=== PATIENT | male | born 1990 | race African-American/Black ===

== ENCOUNTER → 2017-02-16 | Outpatient (CLI) | payer OTHER ==
--- NOTE | 2017-02-16 14:47 | XR ---
Two-view spine HISTORY: Back pain Frontal and lateral views of the cervical, thoracic, lumbar spine submitted on a total of 9 images an d correlated to previous exam 03/13/2016 There is no interval change. Vertebral body height, bone mineralization, and alignment are stable. Mi nimal anterolisthesis grade 1 C4-5. Disc spaces are stable. Some loss of disc height L4-5. Thoracic s pondylosis is noted. Rudimentary ribs present at L1. IMPRESSION: Stable exam. Mild degenerative disc change.
== END ==
LOC: RADXRMAIN 13:50
PROVIDERS: ATTEND Internal Medicine
DX: M47.812 Spondylosis without myelopathy or radiculopathy, cervical region (principal); M47.814 Spondylosis without myelopathy or radiculopathy, thoracic region; M47.816 Spondylosis without myelopathy or radiculopathy, lumbar region
CPT/HCPCS: 72082

== ENCOUNTER → 2017-08-23 | Day surgery (SDC) | payer OTHER ==
[2017-08-19 13:51] VITALS: BMI 32.0
[~2017-08-23] MED LIST: LACTATED RINGERS 1,000 ML IV SCH; LIDOCAINE 1% 20 ML VIAL (10MG/ML) FOR IV START INTRADERMA ONE; LIDOCAINE 1% INJ 10MG/ML (20 ML MDV) ONE; PROPOFOL 10 MG/ML 20 ML VIAL IV ONE; fentaNYL (PF) 50 MCG/ML 2 ML AMP ONE
--- NOTE | 2017-08-23 07:36 | P.GSHP ---
History of Present Illness H&P Date: 08/23/17 CHIEF COMPLAINT: GERD HISTORY OF PRESENT ILLNESS: The patient is a 26-year-old male who presents reports gastroesophageal reflux disease. Upper endoscopy was offered for further evaluation and management. PAST MEDICAL HISTORY: Please see list. PAST SURGICAL HISTORY: Please see list. MEDICATIONS: Please see list. ALLERGIES: Please see list. SOCIAL HISTORY: No illicit drug use FAMILY HISTORY: No reports of Crohn disease or ulcerative colitis. REVIEW OF ORGAN SYSTEMS: CONSTITUTIONAL: No reports of fevers or chills. GI: Denies any blood in stools or constipation. PHYSICAL EXAM: VITAL SIGNS: Stable GENERAL: Well-developed and pleasant in no acute distress. HEENT: No scleral icterus. Extraocular movements grossly intact. Moist buccal mucosa. NECK: Supple without lymphadenopathy. CHEST: Unlabored respirations. Equal bilateral excursions. CARDIOVASCULAR: Regular rate and rhythm. Distal 2+ pulses. ABDOMEN: Soft, nondistended. MUSCULOSKELETAL: No clubbing, cyanosis, or edema. ASSESSMENT: 1. Gastroesophageal reflux disease PLAN: 1. Recommend proceeding with an upper endoscopy Past Medical History Past Medical History: Asthma, GERD/Reflux Additional Past Medical History / Comment(s): OCCASIONAL ABDOMINAL PAIN, HAVING FREQUENT HEADACHES AND INSOMNIA History of Any Multi-Drug Resistant Organisms: None Reported Past Surgical History: No Surgical Hx Reported Additional Past Surgical History / Comment(s): SURGERY FOR "TWISTED INTESTINE" Past Anesthesia/Blood Transfusion Reactions: No Reported Reaction Smoking Status: Never smoker - Past Family History Mother Family Medical History: No Reported History Medications and Allergies Home Medications Medication Instructions Recorded Confirmed Type Albuterol Sulfate [Proair Hfa] 2 puff INHALATION Q6H PRN 08/19/17 08/19/17 History Ibuprofen [Advil] 200 mg PO Q6HR PRN 08/19/17 08/19/17 History Allergies Allergy/AdvReac Type Severity Reaction Status Date / Time tramadol AdvReac Nausea Verified 08/19/17 13:48
[2017-08-23 09:55] VITALS: TEMP 98.2
--- NOTE | 2017-08-23 10:26 | P.PCN ---
Date of Procedure: 08/23/17 Description of Procedure: PREOPERATIVE DIAGNOSIS: Gastroesophageal reflux disease. Epigastric abdominal pain POSTOPERATIVE DIAGNOSIS: Gastroesophageal reflux disease. Epigastric abdominal pain Erosive esophagitis with ulcerations Gastritis. OPERATION: Esophagogastroduodenoscopy with biopsies along antrum and distal esophagus SURGEON: Shobha Lara MD ANESTHESIA: MAC. INDICATIONS: The patient is a 26-year-old male who presents with a history of reflux disease. Benefits and risks of the procedure were described. Informed consent was obtained. DESCRIPTION: The patient was brought into the endoscopy suite and laid in the left lateral decubitus position. An Olympus gastroscope was passed along the posterior oropharynx down to the distal esophagus where the squamocolumnar junction was encountered at 41 cm from the incisors. The stomach was entered and no bile reflux was found. Additional findings are listed below. Biopsies with cold forceps were obtained of the antrum. The first through third portion of the duodenum was examined and remarkable for early duodenitis. Retroflexion of the scope confirmed Hill grade 2 lower esophageal valve. The squamocolumnar junction acute LA grade C erosive esophagitis with ulceration and biopsies obtained. The stomach was desufflated. The patient tolerated the procedure well. FINDINGS: Squamocolumnar junction 41 cm from the incisors. Diaphragmatic hiatus at 41 cm. Hill grade 2 lower esophageal valve. LA grade C erosive esophagitis with esophageal ulcers Chronic gastritis Early duodenitis. RECOMMENDATIONS: Start medical therapy. Further recommendations pending results of pathology report. Upper endoscopy as needed. Will benefit from antireflux surgical procedure Plan - Discharge Summary New Discharge Prescriptions: No Action Ibuprofen [Advil] 200 mg PO Q6HR PRN PRN Reason: Pain Albuterol Sulfate [Proair Hfa] 2 puff INHALATION Q6H PRN PRN Reason: Shortness Of Breath Discharge Medication List Albuterol Sulfate [Proair Hfa] 2 puff INHALATION Q6H PRN 08/19/17 [History] Ibuprofen [Advil] 200 mg PO Q6HR PRN 08/19/17 [History]
[2017-08-23 10:27] VITALS: RESP 16
[2017-08-23 11:10] VITALS: BP 133/69; PULSE 72
== END | disposition home or self-care (01) ==
LOC: ORWHC2ENDO 09:18
PROVIDERS: ATTEND Surgery Plastic and Reconstructive Surgery
DX: K21.0 Gastro-esophageal reflux disease with esophagitis (principal); K22.10 Ulcer of esophagus without bleeding; K29.50 Unspecified chronic gastritis without bleeding; K29.80 Duodenitis without bleeding; J45.909 Unspecified asthma, uncomplicated; Z88.5 Allergy status to narcotic agent
CPT/HCPCS: 88305; 43239; J2001; J3010; J2704; 88312

== ENCOUNTER → 2017-08-26 | Outpatient (CLI) | payer OTHER ==
--- NOTE | 2017-08-26 12:20 | US ---
EXAMINATION TYPE: US gallbladder DATE OF EXAM: 08/26/2017 COMPARISON: 10/22/2013 CLINICAL HISTORY: K44.9 Hiatal Hernia, Gastroesophageal Reflux Disea. EXAM MEASUREMENTS: Liver Length: 17.3 cm Gallbladder Wall: 0.3 cm se CBD: 0.5 cm Right Kidney: 12.0 x 5.1 x 6.2 cm Pancreas: Obscured by bowel gas Liver: Increased attenuation; area of parenchymal change with vague irregular borders in left lobe Gallbladder: No stones seen Evidence for sonographic Ascencio's sign: no CBD: wnl Right Kidney: No hydronephrosis or masses seen Attenuating liver with area in left lobe with vague, irregular border, no gallstones IMPRESSION: 1. Liver somewhat increased in attenuation correlate for fatty infiltration, hepatitis or hepatocellu lar disease. Vague irregular area of echogenicity within the left lobe is noted and nonspecific. Pamela elation with CT scan is recommended to exclude mass.
--- NOTE | 2017-08-26 15:33 | NM ---
Nuclear medicine hepatobiliary scan. HISTORY: Pain. DOSAGE: The patient received 8 ounces of ensure plus and 5.2 mCi of Technetium 99m Choletec. FINDINGS: There is normal hepatic extraction. The gallbladder is seen by 15 minutes. There is bilia ry to bowel clearance by 15 minutes. Ejection fraction is 92%. IMPRESSION: 1. Ejection fraction of 92% can occasionally be associated with hyperdynamic gallbladder correlate cl inically.
== END ==
LOC: RADUSMAIN 11:38
PROVIDERS: ATTEND Surgery Plastic and Reconstructive Surgery
DX: R93.2 Abnormal findings on diagnostic imaging of liver and biliary tract (principal); K21.9 Gastro-esophageal reflux disease without esophagitis
CPT/HCPCS: 76705; 78226; A9537

== ENCOUNTER 2018-05-30 14:41 | Emergency (ER) | payer OTHER ==
[2018-05-30 15:03] VITALS: BP 126/77; PULSE 79; RESP 18; TEMP 98.5
[2018-05-30] MEDS ORDERED: KETOROLAC 60 MG/2 ML VIAL IM STA (15:53)
[2018-05-30] MEDS ORDERED: CYCLOBENZAPRINE 10 MG TAB PO STA (15:54)
--- NOTE | 2018-05-30 15:54 | ED ---
Back Pain HPI - General Chief Complaint: Back Pain/Injury Stated Complaint: back pain, herinated disc Time Seen by Provider: 05/30/18 15:10 Source: patient Limitations: no limitations - History of Present Illness Initial Comments: 27-year-old male wiht PMH of previous disc herniation in 2010 and chronic back pain from neck to lumbar presenting today for chief complaint of chronic back pain. Patient states he has had back pain for years, he states is been worsening for the past few months but denies any injury or trauma. Patient states he's been evaluated for this complaint with outpatient provider. He states he is prescribed Twain. Patient states he was sent here for imaging studies. He thought he needed to come to the emergency department. I did see prescription for cervical, thoracic and lumbar XR complete views as prescribed by Dr. Key. She states since he is here he will just be evaluated for this in the ER. Patient denies any changes, loss of bowel bladder control, IV drug use , fever, chills, night sweats, recent trauma, MVA, history of cancer, numbness or loss sensation lower extremity is. Patient denies any change in characteristic recently of the back pain. Remaining review of systems negative , patient denies any recent shortness of breath, chest pain, abdominal pain, nausea or vomiting, numbness or tingling, urgency, frequency dysuria or hematuria, constipation or diarrhea, headaches or visual changes, or any other complaints. Upon arrival patient is ambulatory without difficulty, vital signs within acceptable limits. Patient appears well - Related Data Home Medications Medication Instructions Recorded Confirmed Albuterol Sulfate [Proair Hfa] 2 puff INHALATION Q6H PRN 08/19/17 08/23/17 Previous Rx's Medication Instructions Recorded Omeprazole 40 mg PO DAILY #90 capsule. 08/23/17 Cyclobenzaprine [Flexeril] 10 mg PO TID PRN 7 Days #21 tab 05/30/18 Allergies Allergy/AdvReac Type Severity Reaction Status Date / Time tramadol AdvReac Nausea Verified 05/30/18 15:03 Review of Systems ROS Statement: Those systems with pertinent positive or pertinent negative responses have been documented in the HPI. ROS Other: All systems not noted in ROS Statement are negative. Past Medical History Past Medical History: Asthma, GERD/Reflux Additional Past Medical History / Comment(s): OCCASIONAL ABDOMINAL PAIN, HAVING FREQUENT HEADACHES AND INSOMNIA History of Any Multi-Drug Resistant Organisms: None Reported Past Surgical History: No Surgical Hx Reported Additional Past Surgical History / Comment(s): SURGERY FOR "TWISTED INTESTINE" Past Anesthesia/Blood Transfusion Reactions: No Reported Reaction Past Psychological History: No Psychological Hx Reported Smoking Status: Never smoker - Past Family History Mother Family Medical History: No Reported History General Exam - General Exam Comments Initial Comments: General: The patient is awake and alert, in no distress, and does not appear acutely ill. Eye: Pupils are equal, round and reactive to light, extra-ocular movements are intact. No nystagmus. There is normal conjunctiva bilaterally. No signs of icterus. Ears, nose, mouth and throat: There are moist mucous membranes and no oral lesions. Neck: The neck is supple, there is no tenderness or JVD. Cardiovascular: There is a regular rate and rhythm. No murmur, rub or gallop is appreciated. Respiratory: Lungs are clear to auscultation, respirations are non-labored, breath sounds are equal. No wheezes, stridor, rales, or rhonchi. Gastrointestinal: Soft, non-distended, non-tender abdomen without masses or organomegaly noted. There is no rebound or guarding present. Musculoskeletal: Upon inspection of the cervical thoracic lumbar spine there is no abnormality. There is no midline or paravertebral tenderness the entire length of the spell column. Patient has full range of motion of the upper and lower extremities there are no deficits and there are equal comparison bilaterally. Patient has full sensation of the upper and lower extremities. There is no saddle anesthesia. Patient's radial and dorsalis pedis pulses are within normal limits. Patient is able to heel and toe walk. +2 out of 5 deep tendon reflexes of the lower extremities. No evidence of clonus or fasciculations. Neurological: A&O x 3. CN II-XII intact, There are no obvious motor or sensory deficits. Coordination appears grossly intact. Speech is normal. Skin: Skin is warm and dry and no rashes or lesions are noted. Psychiatric: Cooperative, appropriate mood & affect, normal judgment. Limitations: no limitations Course Vital Signs 05/30/18 15:01 Temperature 98.5 F Pulse Rate 79 Respiratory 18 Rate Blood Pressure 126/77 O2 Sat by Pulse 99 Oximetry Medical Decision Making - Medical Decision Making Patient accidentally presented to the emergency department when he was coming to the hospital for outpatient imaging studies as prescribed by Dr. Key, pt wanted to be evaluated "since he is already here". No abnormalities upon radiographic imaging studies. There is no signs of radiculopathy or neurovascular deficits upon examination. No signs of cauda equina. Patient is a bit without difficulty. Appears well. No red flags of back pain. Patient denies any recent changes. Patient currently prescribed Twain at home. Patient was given Flexeril and toradol while in the ER. She is agreeable with discharge, denies questions at this time. I discussed the case with attending provider Dr. Oneill who is agreeable with plan and discharge. Disposition Clinical Impression: Chronic back pain Disposition: HOME SELF-CARE Condition: Good Instructions (If sedation given, give patient instructions): Chronic Back Pain (ED) Additional Instructions: Please use medication as discussed. Please follow-up with family doctor in the next 2 days, to discuss imaging studies he recommended/ordered. Please return to emergency room if the symptoms increase or worsen or for any other concerns. Prescriptions: Cyclobenzaprine [Flexeril] 10 mg PO TID PRN 7 Days #21 tab PRN Reason: Muscle Spasm Is patient prescribed a controlled substance at d/c from ED?: No Referrals: Mitchel Key MD [Primary Care Provider] - 1-2 days Time of Disposition: 16:21
--- NOTE | 2018-05-30 16:35 | XR ---
EXAMINATION TYPE: XR spine complete AP and Lat DATE OF EXAM: 05/30/2018 COMPARISON: 02/16/2017 HISTORY: Pain TECHNIQUE: Cervical spine is examined in multiple projections. Thoracic and lumbar spine are included within the [id number]. FINDINGS: Lumbar spine appears normal without acute fracture. There 5 lumbar-type bodies. Pedicles ap pear intact may be rudimentary ribs at L1. Thoracic spine appears normal. Straightening of the cervical spine lateral projection. IMPRESSION: 1. No suspicious acute changes cervical thoracic or lumbar spine
== END 2018-05-30 16:56 | disposition home or self-care (01) ==
LOC: EC 14:41
DX: M54.5 Low back pain (principal); M54.2 Cervicalgia; G89.29 Other chronic pain; J45.909 Unspecified asthma, uncomplicated; K21.9 Gastro-esophageal reflux disease without esophagitis; Z88.6 Allergy status to analgesic agent; Z98.890 Other specified postprocedural states
CPT/HCPCS: 72082; 99283; 96372; J1885

== ENCOUNTER 2018-10-07 08:58 | Day surgery (SDC) | payer OTHER ==
[2018-10-06 09:39] VITALS: BMI 31.7
--- NOTE | 2018-10-07 06:30 | P.GSHP ---
History of Present Illness H&P Date: 10/07/18 CHIEF COMPLAINT: GERD HISTORY OF PRESENT ILLNESS: The patient is a 27-year-old male who presents reports gastroesophageal reflux disease. Upper endoscopy was offered for further evaluation and management. PAST MEDICAL HISTORY: Please see list. PAST SURGICAL HISTORY: Please see list. MEDICATIONS: Please see list. ALLERGIES: Please see list. SOCIAL HISTORY: No illicit drug use FAMILY HISTORY: No reports of Crohn disease or ulcerative colitis. REVIEW OF ORGAN SYSTEMS: CONSTITUTIONAL: No reports of fevers or chills. GI: Denies any blood in stools or constipation. PHYSICAL EXAM: VITAL SIGNS: Stable GENERAL: Well-developed and pleasant in no acute distress. HEENT: No scleral icterus. Extraocular movements grossly intact. Moist buccal mucosa. NECK: Supple without lymphadenopathy. CHEST: Unlabored respirations. Equal bilateral excursions. CARDIOVASCULAR: Regular rate and rhythm. Distal 2+ pulses. ABDOMEN: Soft, nondistended. MUSCULOSKELETAL: No clubbing, cyanosis, or edema. ASSESSMENT: 1. Gastroesophageal reflux disease PLAN: 1. Recommend proceeding with an upper endoscopy Past Medical History Past Medical History: Asthma, GERD/Reflux Additional Past Medical History / Comment(s): OCCASIONAL ABDOMINAL PAIN, HAVING FREQUENT HEADACHES AND INSOMNIA History of Any Multi-Drug Resistant Organisms: None Reported Past Surgical History: No Surgical Hx Reported Additional Past Surgical History / Comment(s): SURGERY FOR "TWISTED INTESTINE" Past Anesthesia/Blood Transfusion Reactions: No Reported Reaction Smoking Status: Never smoker - Past Family History Mother Family Medical History: No Reported History Medications and Allergies Home Medications Medication Instructions Recorded Confirmed Type Albuterol Sulfate [Proair Hfa] 2 puff INHALATION Q6H PRN 08/19/17 10/06/18 History Allergies Allergy/AdvReac Type Severity Reaction Status Date / Time tramadol AdvReac Nausea Verified 10/06/18 09:23
[~2018-10-07 08:58] MED LIST changes: -LIDOCAINE 1% 20 ML VIAL (10MG/ML) FOR IV START INTRADERMA ONE; -LIDOCAINE 1% INJ 10MG/ML (20 ML MDV) ONE; -PROPOFOL 10 MG/ML 20 ML VIAL IV ONE; -fentaNYL (PF) 50 MCG/ML 2 ML AMP ONE
[2018-10-07 09:22] VITALS: TEMP 98.9
[2018-10-07] MEDS ORDERED: LIDOCAINE 1% 20 ML VIAL (10MG/ML) FOR IV START INTRADERMA ONE (09:29)
[2018-10-07] MEDS ORDERED: PROPOFOL 10 MG/ML 20 ML VIAL IV ONE (09:30)
[2018-10-07] MEDS ORDERED: LIDOCAINE 1% INJ 10MG/ML (20 ML MDV) ONE (09:30)
--- NOTE | 2018-10-07 10:11 | P.PCN ---
Date of Procedure: 10/07/18 Description of Procedure: PREOPERATIVE DIAGNOSIS: Gastroesophageal reflux disease. Epigastric abdominal pain Atypical chest pain POSTOPERATIVE DIAGNOSIS: Gastroesophageal reflux disease. Epigastric abdominal pain Atypical chest pain Gastritis, superficial with bleeding Erosive esophagitis Duodenitis OPERATION: Esophagogastroduodenoscopy with biopsies along antrum, duodenum and esophagus SURGEON: Shobha Lara MD ANESTHESIA: MAC. INDICATIONS: The patient is a 27-year-old male who presents with a history of reflux disease. Benefits and risks of the procedure were described. Informed consent was obtained. DESCRIPTION: The patient was brought into the endoscopy suite and laid in the left lateral decubitus position. An Olympus gastroscope was passed along the posterior oropharynx down to the distal esophagus where the squamocolumnar junction was encountered at 40 cm from the incisors. The stomach was entered and no bile reflux was found. Additional findings are listed below. Biopsies with cold forceps were obtained of the antrum. The first through third portion of the duodenum was examined with duodenitis. Retroflexion of the scope confirmed Hill grade 2 lower esophageal valve. The squamocolumnar junction demonstrated LA grade C erosive esophagitis. The stomach was desufflated. The patient tolerated the procedure well. FINDINGS: Squamocolumnar junction 40 cm from the incisors. Diaphragmatic hiatus at 42 cm. Hiatal hernia, 2 cm Hill grade 2 lower esophageal valve. LA grade C erosive esophagitis. Active duodenitis. Chronic gastritis with recent bleed RECOMMENDATIONS: Upper endoscopy as needed. Start omeprazole 40 mg daily Plan - Discharge Summary Discharge Rx Participant: No New Discharge Prescriptions: New Omeprazole 40 mg PO DAILY #30 capsule. No Action Albuterol Sulfate [Proair Hfa] 2 puff INHALATION Q6H PRN PRN Reason: Shortness Of Breath Discharge Medication List Albuterol Sulfate [Proair Hfa] 2 puff INHALATION Q6H PRN 08/19/17 [History] Omeprazole 40 mg PO DAILY #30 capsule. 10/07/18 [Rx] Follow up Appointment(s)/Referral(s): Shobha Lara MD [STAFF PHYSICIAN] - 10/25/18 Patient Instructions/Handouts: Duodenitis (DC), Esophagitis (DC), Diet for Stomach Ulcers and Gastritis (GEN), Gastritis (DC), Gastroesophageal Reflux Disease (DC) Activity/Diet/Wound Care/Special Instructions: Please start your new prescriptions Discharge Disposition: HOME SELF-CARE
[2018-10-07 10:31] VITALS: BP 127/90; PULSE 77; RESP 18
== END 2018-10-07 10:39 | disposition home or self-care (01) ==
LOC: ORWHC2ENDO 08:58
PROVIDERS: ATTEND Surgery Plastic and Reconstructive Surgery
DX: K29.31 Chronic superficial gastritis with bleeding (principal); K29.80 Duodenitis without bleeding; K21.0 Gastro-esophageal reflux disease with esophagitis; K22.10 Ulcer of esophagus without bleeding; K44.9 Diaphragmatic hernia without obstruction or gangrene; J45.909 Unspecified asthma, uncomplicated; Z88.5 Allergy status to narcotic agent
CPT/HCPCS: 88305; 43239; J2001; J2704

== ENCOUNTER → 2018-11-10 | Outpatient (CLI) | payer OTHER ==
[2018-11-10 16:49] LABS: HCT 44.7 % (39.0-53.0); HGB 14.4 gm/dL (13.0-17.5); MCH 28.2 pg (25.0-35.0); MCHC 32.1 g/dL (31.0-37.0); MCV 87.7 fL (80.0-100.0); Mean Platelet Volume 6.8; Platelet Count 217 k/uL (150-450); WBC 7.3 k/uL (3.8-10.6)
== END | disposition home or self-care (01) ==
LOC: LABPAT 16:11
PROVIDERS: ATTEND Surgery Plastic and Reconstructive Surgery
DX: Z01.812 Encounter for preprocedural laboratory examination (principal); K66.0 Peritoneal adhesions (postprocedural) (postinfection)
CPT/HCPCS: 85027

== ENCOUNTER 2018-11-11 08:21 | Day surgery (SDC) | payer OTHER ==
[2018-11-10 08:25] VITALS: BMI 31.0
--- NOTE | 2018-11-11 07:59 | P.GSHP ---
History of Present Illness H&P Date: 11/11/18 CHIEF COMPLAINT: History of intra-abdominal adhesions HISTORY OF PRESENT ILLNESS: The patient is a 28-year-old male who presents with history of intra-abdominal adhesions from multiple prior surgeries including increasing abdominal pain. He now presents for diagnostic laparoscopy including lysis of adhesions. PAST MEDICAL HISTORY: Please see list. PAST SURGICAL HISTORY: Please see list. MEDICATIONS: Please see list. ALLERGIES: Please see list. SOCIAL HISTORY: No illicit drug use FAMILY HISTORY: No reports of Crohn disease or ulcerative colitis. REVIEW OF ORGAN SYSTEMS: CONSTITUTIONAL: No reports of fevers or chills. GI: Denies any blood in stools or constipation. PHYSICAL EXAM: VITAL SIGNS: Stable GENERAL: Well-developed pleasant and in no acute distress. HEENT: No scleral icterus. Extraocular movements grossly intact. Moist buccal mucosa. NECK: Supple without lymphadenopathy. CHEST: Unlabored respirations. Equal bilateral excursions. CARDIOVASCULAR: Regular rate and rhythm. Distal 2+ pulses. ABDOMEN: Soft, diffuse abdominal tenderness. No peritonitis. MUSCULOSKELETAL: No clubbing, cyanosis, or edema. ASSESSMENT: 1. Diffuse abdominal pain. 2. History of multiple abdominal surgeries. 3. Intra-abdominal adhesions. PLAN: 1. Robotic lysis of adhesions were described in detail including risk of injury to the intestine, need for further surgery, and open technique. 2. DVT prophylaxis. 3. Antibiotic prophylaxis. Past Medical History Past Medical History: Asthma, GERD/Reflux Additional Past Medical History / Comment(s): OCCASIONAL ABDOMINAL PAIN, HAVING FREQUENT HEADACHES AND INSOMNIA History of Any Multi-Drug Resistant Organisms: None Reported Past Surgical History: No Surgical Hx Reported Additional Past Surgical History / Comment(s): SURGERY FOR "TWISTED INTESTINE", EGD Past Anesthesia/Blood Transfusion Reactions: No Reported Reaction Smoking Status: Never smoker - Past Family History Mother Family Medical History: No Reported History Medications and Allergies Home Medications Medication Instructions Recorded Confirmed Type Albuterol Sulfate [Proair Hfa] 2 puff INHALATION Q6H PRN 08/19/17 11/10/18 History Omeprazole 40 mg PO DAILY #30 capsule. 10/07/18 11/10/18 Rx Allergies Allergy/AdvReac Type Severity Reaction Status Date / Time tramadol AdvReac Nausea Verified 11/10/18 08:16
[~2018-11-11 08:21] MED LIST changes: +DEXAMETHASONE SOD PHOSPHATE 10 MG/ML 1 ML VIAL IV ONE; +HEPARIN SODIUM,PORCINE 5,000 UNIT/ML 1 ML VIAL SQ ONE; -LACTATED RINGERS 1,000 ML IV SCH; +MIDAZOLAM 2 MG/2 ML VIAL IV PRN; +ONDANSETRON 4 MG/2 ML VIAL IVP ONE
[2018-11-11] MEDS ORDERED: LIDOCAINE 1% 20 ML VIAL (10MG/ML) FOR IV START INTRADERMA ONE (08:50)
[2018-11-11] MEDS: LACTATED RINGERS 1,000 ML IV SCH ×3 (08:50→14:15)
[2018-11-11 09:14] LABS: ALT 29 U/L (21-72); AST 22 U/L (17-59); African American GFR (CKD) >90 (>60 ml/min/1.73 sqM); Albumin 4.6 g/dL (3.5-5.0); Alkaline Phosphatase 61 U/L (38-126); Anion Gap 11 mmol/L; Blood Urea Nitrogen 11 mg/dL (9-20); Calcium 9.8 mg/dL (8.4-10.2); Carbon Dioxide 23 mmol/L (22-30); Chloride 108 mmol/L (98-107); Glucose 98 mg/dL (74-99); Potassium 4.1 mmol/L (3.5-5.1); Sodium 142 mmol/L (137-145); Total Bilirubin 1.7 mg/dL (0.2-1.3); Total Protein 7.9 g/dL (6.3-8.2)
[2018-11-11] MEDS ORDERED: MIDAZOLAM (PF) 2 MG/2 ML VIAL IV ONE (09:14)
[2018-11-11] MEDS ORDERED: fentaNYL (PF) 50 MCG/ML 2 ML AMP IV ONE (09:14)
[2018-11-11] MEDS ORDERED: GLYCOPYRROLATE 0.2 MG/ML 2 ML VIAL ONE ×2 (09:26)
[2018-11-11] MEDS ORDERED: ROCURONIUM BROMIDE 10 MG/ML 10 ML VIAL IV ONE ×2 (09:26)
[2018-11-11] MEDS ORDERED: ROPIVACAINE 5 MG/ML 30 ML VIAL ONE ×2 (09:26)
[2018-11-11] MEDS ORDERED: PROPOFOL 10 MG/ML 20 ML VIAL IV ONE ×2 (09:26)
[2018-11-11] MEDS ORDERED: NEOSTIGMINE 1 MG/ML 10 ML VIAL ONE ×2 (09:26)
[2018-11-11] MEDS ORDERED: LIDOCAINE 1% INJ 10MG/ML (20 ML MDV) ONE ×2 (09:26)
[2018-11-11] MEDS ORDERED: DEXAMETHASONE SOD PHOSPHATE 4 MG/ML 1 ML VIAL ONE ×2 (09:26)
[2018-11-11] MEDS ORDERED: fentaNYL (PF) 50 MCG/ML 2 ML AMP ONE ×2 (09:26)
[2018-11-11] MEDS ORDERED: LACTATED RINGERS 1,000 ML IV ONE ×2 (09:47→10:21)
[2018-11-11] MEDS ORDERED: LIDOCAINE 1%-EPI 1:100,000 30 ML VIAL SQ ONE ×2 (09:48→10:00)
--- NOTE | 2018-11-11 10:53 | P.ANPRN ---
Procedure Note - Anesthesia - Nerve Block Performed Bilateral Transversus Abdominis Single Time Out Performed: Yes Date of Procedure: 11/11/18 Procedure Start Time: 09:15 Procedure Stop Time: :25 Location of Patient Procedure: PreOp Indication: Acute Post-Operative Pain, Requested by physician Sedation Type: Sedate with meaningful contact maintained Position: Supine Catheter: None Needle Types: Pajunk Needle Gauge: 21 Technique: Ultrasound Injectate: 0.5% Ropivacaine (see comment for volume) (ropivacaine 0.5% 15ml/side + 2mg dexamethasone/side. Total of 31 ml) Blood Aspirated: No Pain Paresthesia on Injection Noted: No Resistance on Injection: Normal Events: Uneventful and Well Tolerated
[2018-11-11 11:15] VITALS: TEMP 97.3
--- NOTE | 2018-11-11 11:24 | P.OP ---
Date of Procedure: 11/11/18 Description of Procedure: Date of Procedure: 11/11/18 SURGEON: SHOBHA LARA MD PREOPERATIVE DIAGNOSES: 1. History of recurrent small bowel obstruction 2. Abdominal distention 3. Generalized abdominal pain 4. History of small bowel volvulus 5. History of chronic back pain 6. Asthma 7. Gastroesophageal reflux disease POSTOPERATIVE DIAGNOSES: 1. History of recurrent small bowel obstruction 2. Abdominal distention 3. Generalized abdominal pain 4. History of small bowel volvulus 5. History of chronic back pain 6. Asthma 7. Gastroesophageal reflux disease 8. Angiodysplasia proximal ileum 9. Intussusception OPERATION: 1. Robotic-assisted da Terence Xi laparoscopic lysis of adhesions 2. Robotic diagnostic laparoscopy with ablation of angiodysplasia of proximal ileum serosa 3 cm mesenteric border Anesthesia: GETA, regional, local Estimated Blood Loss (ml): 5 Pathology: none sent Condition: stable Disposition: floor Operative Findings: 1. Intermittent small bowel dilation with angiodysplasia anomaly of the proximal ileum consistent with previous CT scans for bowel obstruction 2. No omental defects or internal hernia identified 3. No creeping fat of the terminal ileum or signs of Crohn's disease of the small intestine 4. Inflammation of the ileum mesentery consistent with recent bowel obstruction 5. 3 cm mesenteric angiodysplasia/telangiectasia ablated as lead point for intussusception/bowel obstruction INDICATIONS: The patient is a 28-year-old male who presents with recurrent small bowel obstruction and abdominal pain. Robotic assisted laparoscopic approach was described. Benefits and risks of the procedure including but not limited to bleeding, infection, injury to the small bowel was described. Informed consent was obtained. DESCRIPTION OF PROCEDURE: Patient was brought to the operating room, placed in supine position. After general induction, the abdomen had been prepped and draped in standard sterile fashion. The robotic da Terence XI system was primed. After a timeout protocol was performed, the patient had been prepped and draped in standard sterile fashion. The robot was docked along the right lateral abdomen. The patient was repositioned in Trendelenburg position of 10 degrees. A 5 mm 0 degrees laparoscopic trocar entry was performed along the left upper quadrant. The abdomen was insufflated to 15 mmHg pressure which she tolerated well. Diagnostic laparoscopy demonstrated no injury to the bowel, viscera or mesentery was identified. Next, three 8 mm robotic ports were placed along the left lateral abdominal wall. The 5 mm trocar was exchanged for 8 mm port. Please note that the ports were placed at least 8 cm away from the target anatomy. Instruments were interchanged using only 3 ports for a grasper, vessel sealer, and scissors with cautery. Instruments were interchanged by the stylist assistant including Bovie cautery scissors. I had sat at the console. The camera was positioned along the left lateral abdominal wall. The small bowel was investigated from the cecum to the ligament of Treitz. Intermittent small bowel dilation with angiodysplasia anomaly of the proximal ileum consistent with previous CT scans for bowel obstruction was found. No omental defects or internal hernia identified. No creeping fat of the terminal ileum or signs of Crohn's disease of the small intestine. Inflammation of the ileum mesentery consistent with recent bowel obstruction. A 3 cm mesenteric angiodysplasia/telangiectasia was identified and ablated as lead point for intussusception/bowel obstruction. Few adhesions were taken down without injury to the small bowel using vessel sealer. No involvement of small bowel was found. Hemostasis was excellent and abdomen was dry upon completion. The robot was undocked. All pneumoperitoneum and instruments were evacuated from the abdominal cavity. The incisions were reapproximated using 4-0 Monocryl in an interrupted subcuticular fashion. Please note along the trocar sites, local anesthetic was placed as a field block prior to insertion of all instruments. Liquid glue was applied to the skin. At the end of the procedure needle, sponge, and instrument count had been verified correct by the surgical manager. The patient was transferred to postanesthesia care unit in stable condition. Intraoperative images including findings were described to the patients family. Plan - Discharge Summary Discharge Rx Participant: Yes New Discharge Prescriptions: New Ibuprofen [Motrin] 600 mg PO Q8HR PRN #30 tab PRN Reason: Pain No Action Albuterol Sulfate [Proair Hfa] 2 puff INHALATION Q6H PRN PRN Reason: Shortness Of Breath Omeprazole 40 mg PO DAILY #30 capsule. Discharge Medication List Albuterol Sulfate [Proair Hfa] 2 puff INHALATION Q6H PRN 08/19/17 [History] Omeprazole 40 mg PO DAILY #30 capsule. 10/07/18 [Rx] Ibuprofen [Motrin] 600 mg PO Q8HR PRN #30 tab 11/11/18 [Rx] Follow up Appointment(s)/Referral(s): Shobha Lara MD [STAFF PHYSICIAN] - 11/15/18 Patient Instructions/Handouts: *Surgery [facility] - (Anesthesia) Discharge Instructions Outpatient Surgery, Exploratory Laparoscopy (DC), Angiodysplasia of the Gastrointestinal Tract (DC) Activity/Diet/Wound Care/Special Instructions: May shower. No bathtub soaks until 11/21/2018. No lifting over 10 pounds until 11/21/2018. Discharge Disposition: HOME SELF-CARE
[2018-11-11] MEDS: HYDROmorphone 0.5 MG/0.5 ML SYRINGE IVP PRN ×2 (11:34→11:46)
[2018-11-11] MEDS ORDERED: ONDANSETRON 4 MG/2 ML VIAL IVP ONE (12:38)
[2018-11-11 12:41] VITALS: RESP 16
[2018-11-11 13:13] VITALS: BP 130/87; PULSE 82
== END 2018-11-11 14:26 | disposition home or self-care (01) ==
LOC: OR 08:21
PROVIDERS: ATTEND Surgery Plastic and Reconstructive Surgery
DX: K55.20 Angiodysplasia of colon without hemorrhage (principal); J45.909 Unspecified asthma, uncomplicated; K21.9 Gastro-esophageal reflux disease without esophagitis; G89.29 Other chronic pain; Z79.899 Other long term (current) drug therapy; Z88.8 Allergy status to other drugs, medicaments and biological substances
CPT/HCPCS: 64488; 80053; 49329; J1644; J1100 ×2; J2710; J0690; J2405; J2001; J3010; J2795; J2704; J1170; J2250

== ENCOUNTER 2018-11-18 02:47 | Inpatient (IN) | payer OTHER ==
--- NOTE | 2018-11-18 03:02 | ED ---
General Adult HPI - General Source: patient, RN notes reviewed Mode of arrival: ambulatory Limitations: no limitations <Stanley Nogueira P - Last Filed: 11/18/18 04:09> <Janee Mattehws P - Last Filed: 11/18/18 05:46> - General Chief complaint: Abdominal Pain Stated complaint: Abd Pain Time Seen by Provider: 11/18/18 02:59 - History of Present Illness Initial comments: 28-year-old male with a past medical history of asthma, GERD, small bowel obstruction, multiple abdominal surgeries presents to the emergency department for a chief complaint of abdominal pain. States he has had pain for about 4 days but has been worsening significantly. Patient had laparoscopic exploratory surgery [address] Lara where a 3 cm mesenteric angiodysplasia was ablated as a lead point for intussusception/bowel obstruction. States he last passed stool about a day and a half ago. Patient states he has not been able to pass any gas since that time. States he is nauseous but denies vomiting. Denies any dysuria. Denies any fevers or chills.Patient has no other complaints at this time including shortness of breath, chest pain, vomiting, headache, or visual changes. (Stanley Nogueira) - Related Data Home Medications Medication Instructions Recorded Confirmed Albuterol Sulfate [Proair Hfa] 2 puff INHALATION Q6H PRN 08/19/17 11/11/18 Previous Rx's Medication Instructions Recorded Omeprazole 40 mg PO DAILY #30 capsule. 10/07/18 Ibuprofen [Motrin] 600 mg PO Q8HR PRN #30 tab 11/11/18 Allergies Allergy/AdvReac Type Severity Reaction Status Date / Time tramadol AdvReac Nausea Verified 11/18/18 02:56 Review of Systems ROS Other: All systems not noted in ROS Statement are negative. <Stanley Nogueira P - Last Filed: 11/18/18 04:09> ROS Other: All systems not noted in ROS Statement are negative. <Janee Matthews P - Last Filed: 11/18/18 05:46> ROS Statement: Those systems with pertinent positive or pertinent negative responses have been documented in the HPI. Past Medical History Past Medical History: Asthma, GERD/Reflux Additional Past Medical History / Comment(s): OCCASIONAL ABDOMINAL PAIN, HAVING FREQUENT HEADACHES AND INSOMNIA History of Any Multi-Drug Resistant Organisms: None Reported Past Surgical History: No Surgical Hx Reported Additional Past Surgical History / Comment(s): SURGERY FOR "TWISTED INTESTINE" Past Anesthesia/Blood Transfusion Reactions: No Reported Reaction Past Psychological History: No Psychological Hx Reported Smoking Status: Never smoker Past Alcohol Use History: Rare Past Drug Use History: None Reported - Past Family History Mother Family Medical History: No Reported History <Stanley Nogueira P - Last Filed: 11/18/18 04:09> General Exam Limitations: no limitations General appearance: alert, in no apparent distress Head exam: Present: atraumatic, normocephalic, normal inspection Eye exam: Present: normal appearance, PERRL, EOMI. Absent: scleral icterus, conjunctival injection, periorbital swelling ENT exam: Present: normal exam, mucous membranes moist Neck exam: Present: normal inspection, full ROM. Absent: tenderness, meningismus, lymphadenopathy Respiratory exam: Present: normal lung sounds bilaterally. Absent: respiratory distress, wheezes, rales, rhonchi, stridor Cardiovascular Exam: Present: regular rate, normal rhythm, normal heart sounds. Absent: systolic murmur, diastolic murmur, rubs, gallop, clicks GI/Abdominal exam: Present: soft, distended, tenderness (Generalized abdominal tenderness), normal bowel sounds. Absent: guarding, rebound, rigid Neurological exam: Present: alert, oriented X3 Psychiatric exam: Present: normal affect, normal mood <Stanley Nogueira P - Last Filed: 11/18/18 04:09> Course Vital Signs 11/18/18 02:54 Temperature 98 F Pulse Rate 103 H Respiratory 20 Rate Blood Pressure 143/84 O2 Sat by Pulse 100 Oximetry Medical Decision Making - Lab Data Result diagrams: 11/18/18 03:40 11/18/18 03:40 <Stanley Nogueira P - Last Filed: 11/18/18 04:09> - Lab Data Result diagrams: 11/18/18 03:40 11/18/18 03:40 <Janee Matthews P - Last Filed: 11/18/18 05:46> - Medical Decision Making Patient with recurrent small bowel obstructions presenting today 7 days postop from exploratory laparoscopy with again symptom the small bowel obstruction, x-ray did confirm a small bowel instruction however considering the patient is immediately postoperative decision was made to get a computed tomography scan. Computed tomography scan showed dilated edematous loops of small bowel with a possible transition point at the terminal ileum or ileocecal valve, no definitive transition point, no definitive loop. These results were discussed with the surgeon Dr. Lara who agrees with plan for admission for supportive care at this time. (Janee Matthews) - Lab Data Lab Results 11/18/18 11/18/18 11/18/18 Range/Units 03:40 03:40 03:40 WBC 11.0 H (3.8-10.6) k/uL RBC 5.55 (4.30-5.90) m/uL Hgb 16.2 (13.0-17.5) gm/dL Hct 48.0 (39.0-53.0) % MCV 86.6 (80.0-100.0) fL MCH 29.2 (25.0-35.0) pg MCHC 33.8 (31.0-37.0) g/dL RDW 15.8 H (11.5-15.5) % Plt Count 232 (150-450) k/uL Neutrophils % 71 % Lymphocytes % 21 % Monocytes % 6 % Eosinophils % 1 % Basophils % 0 % Neutrophils # 7.8 H (1.3-7.7) k/uL Lymphocytes # 2.3 (1.0-4.8) k/uL Monocytes # 0.6 (0-1.0) k/uL Eosinophils # 0.1 (0-0.7) k/uL Basophils # 0.0 (0-0.2) k/uL Sodium 140 (137-145) mmol/L Potassium 3.9 (3.5-5.1) mmol/L Chloride 102 (98-107) mmol/L Carbon Dioxide 23 (22-30) mmol/L Anion Gap 15 mmol/L BUN 16 (9-20) mg/dL Creatinine 1.15 (0.66-1.25) mg/dL Est GFR (CKD-EPI)AfAm >90 (>60 ml/min/1.73 sqM) Est GFR (CKD-EPI)NonAf 87 (>60 ml/min/1.73 sqM) Glucose 137 H (74-99) mg/dL Plasma Lactic Acid Curt 2.5 H* (0.7-2.0) mmol/L Calcium 10.4 H (8.4-10.2) mg/dL Total Bilirubin 2.5 H (0.2-1.3) mg/dL AST 18 (17-59) U/L ALT 19 L (21-72) U/L Alkaline Phosphatase 76 (38-126) U/L Total Protein 8.6 H (6.3-8.2) g/dL Albumin 4.9 (3.5-5.0) g/dL Amylase 53 (30-110) U/L Lipase 37 (23-300) U/L Urine Color Urine Appearance (Clear) Urine pH (5.0-8.0) Ur Specific [place] (1.001-1.035) Urine Protein (Negative) Urine Glucose (UA) (Negative) Urine Ketones (Negative) Urine Blood (Negative) Urine Nitrite (Negative) Urine Bilirubin (Negative) Urine Urobilinogen (<2.0) mg/dL Ur Leukocyte Esterase (Negative) Urine RBC (0-5) /hpf Urine WBC (0-5) /hpf Urine Mucus (None) /hpf 11/18/18 Range/Units 03:40 WBC (3.8-10.6) k/uL RBC (4.30-5.90) m/uL Hgb (13.0-17.5) gm/dL Hct (39.0-53.0) % MCV (80.0-100.0) fL MCH (25.0-35.0) pg MCHC (31.0-37.0) g/dL RDW (11.5-15.5) % Plt Count (150-450) k/uL Neutrophils % % Lymphocytes % % Monocytes % % Eosinophils % % Basophils % % Neutrophils # (1.3-7.7) k/uL Lymphocytes # (1.0-4.8) k/uL Monocytes # (0-1.0) k/uL Eosinophils # (0-0.7) k/uL Basophils # (0-0.2) k/uL Sodium (137-145) mmol/L Potassium (3.5-5.1) mmol/L Chloride (98-107) mmol/L Carbon Dioxide (22-30) mmol/L Anion Gap mmol/L BUN (9-20) mg/dL Creatinine (0.66-1.25) mg/dL Est GFR (CKD-EPI)AfAm (>60 ml/min/1.73 sqM) Est GFR (CKD-EPI)NonAf (>60 ml/min/1.73 sqM) Glucose (74-99) mg/dL Plasma Lactic Acid Curt (0.7-2.0) mmol/L Calcium (8.4-10.2) mg/dL Total Bilirubin (0.2-1.3) mg/dL AST (17-59) U/L ALT (21-72) U/L Alkaline Phosphatase (38-126) U/L Total Protein (6.3-8.2) g/dL Albumin (3.5-5.0) g/dL Amylase (30-110) U/L Lipase (23-300) U/L Urine Color Yellow Urine Appearance Clear (Clear) Urine pH 6.5 (5.0-8.0) Ur Specific [place] 1.035 (1.001-1.035) Urine Protein 1+ H (Negative) Urine Glucose (UA) Negative (Negative) Urine Ketones Negative (Negative) Urine Blood Negative (Negative) Urine Nitrite Negative (Negative) Urine Bilirubin Negative (Negative) Urine Urobilinogen <2.0 (<2.0) mg/dL Ur Leukocyte Esterase Trace H (Negative) Urine RBC 1 (0-5) /hpf Urine WBC 7 H (0-5) /hpf Urine Mucus Few H (None) /hpf Disposition <Stanley Nogueira P - Last Filed: 11/18/18 04:09> Is patient prescribed a controlled substance at d/c from ED?: No <Janee Matthews P - Last Filed: 11/18/18 05:46> Clinical Impression: SBO (small bowel obstruction) Disposition: ADMITTED IP TO THIS HOSP Condition: Stable Referrals: Mitchel Key MD [Primary Care Provider] - 1-2 days
[2018-11-18] MEDS ORDERED: SODIUM CHLORIDE 0.9% 1,000 ML IV STA (03:23)
[2018-11-18] MEDS ORDERED: ONDANSETRON 4 MG/2 ML VIAL IVP STA (03:23)
[2018-11-18] MEDS ORDERED: KETOROLAC 30 MG/ML 1 ML VIAL IVP STA (03:23)
[2018-11-18 03:59] LABS: Appearance,Urine Clear (Clear); Bilirubin,Urine Negative (Negative); Blood,Urine Negative (Negative); Color,Urine Yellow; Glucose,Urine (UA) Negative (Negative); Ketones,Urine Negative (Negative); Leukocyte Esterase,Urine Trace (Negative); Mucus,Urine Few /hpf; Nitrite,Urine Negative (Negative); PH, Urine 6.5 (5.0-8.0); Protein,Urine 1+ (Negative); RBC,Urine 1 /hpf (0-5); Specific Gravity,Urine 1.035 (1.001-1.035); Urobilinogen,Urine <2.0 mg/dL (<2.0); WBC,Urine 7 /hpf (0-5)
[2018-11-18 04:01] LABS: Basophils % (A) 0 %; Eosinophils # (A) 0.1 k/uL (0-0.7); Eosinophils % (A) 1 %; HGB 16.2 gm/dL (13.0-17.5); Lymphocytes # (A) 2.3 k/uL (1.0-4.8); Lymphocytes % (A) 21 %; MCH 29.2 pg (25.0-35.0); MCHC 33.8 g/dL (31.0-37.0); MCV 86.6 fL (80.0-100.0); Mean Platelet Volume 7.2; Monocytes # (A) 0.6 k/uL (0-1.0); Monocytes % (A) 6 %; Neutrophils # (A) 7.8 k/uL (1.3-7.7); Neutrophils % (A) 71 %; Platelet Count 232 k/uL (150-450); RBC 5.55 m/uL (4.30-5.90); RDW 15.8 % (11.5-15.5)
[2018-11-18 04:06] LABS: ALT 19 U/L (21-72); AST 18 U/L (17-59); African American GFR (CKD) >90 (>60 ml/min/1.73 sqM); Albumin 4.9 g/dL (3.5-5.0); Alkaline Phosphatase 76 U/L (38-126); Amylase 53 U/L (30-110); Anion Gap 15 mmol/L; Blood Urea Nitrogen 16 mg/dL (9-20); Calcium 10.4 mg/dL (8.4-10.2); Carbon Dioxide 23 mmol/L (22-30); Chloride 102 mmol/L (98-107); Glucose 137 mg/dL (74-99); Non-African American GFR(CKD) 87 (>60 ml/min/1.73 sqM); Potassium 3.9 mmol/L (3.5-5.1); Sodium 140 mmol/L (137-145); Total Bilirubin 2.5 mg/dL (0.2-1.3); Total Protein 8.6 g/dL (6.3-8.2)
--- NOTE | 2018-11-18 04:21 | XR ---
EXAM: XR Abdomen, 2 Views CLINICAL HISTORY: ITS.REASON XR Reason: abdominal pain TECHNIQUE: Frontal view of the abdomen/pelvis with upright view of the abdomen. 3 images. COMPARISON: 11/09/13. FINDINGS: Intraperitoneal space: No free air. Gastrointestinal tract: Multiple dilated small bowel loops with air- fluid levels in the mid abdomen. Normal caliber/collapsed colonic loops. Bones/joints: Unremarkable. IMPRESSION: Multiple dilated small bowel loops with air-fluid levels in the mid abdomen. Normal caliber/collapsed colonic loops. Likely represents small bowel obstruction.
--- NOTE | 2018-11-18 05:28 | CT ---
EXAM: CT Abdomen and Pelvis With Intravenous Contrast CLINICAL HISTORY: ITS.REASON CT Reason: Pain Pt having abdominal pain for 3 days, after laproscopic abdminal surgery 7 days ago. History of bowel obstructions. TECHNIQUE: Axial computed tomography images of the abdomen and pelvis with intravenous contrast. CTDI is 12.2 mGy and DLP is 1176.3 mGy-cm. This CT exam was performed using one or more of the following dose reduction techniques: automated exposure control, adjustment of the mA and/or kV according to patient size, and/or use of iterative reconstruction technique. COMPARISON: Prior x-ray abdomen today. FINDINGS: Lung bases: Unremarkable. No mass. No consolidation. ABDOMEN: Liver: Unremarkable. No mass. Gallbladder and bile ducts: Unremarkable. No calcified stones. No ductal dilation. Pancreas: Unremarkable. No mass. No ductal dilation. Spleen: Unremarkable. No splenomegaly. Adrenals: Unremarkable. No mass. Kidneys and ureters: Unremarkable. No solid mass. No hydronephrosis. Stomach and bowel: Multiple dilated small bowel loops with air-fluid levels throughout the abdomen and pelvis to the level of the terminal ileum/ileocecal valve. Wall thickening of many of these loops. A discrete transition point is not visualized. Normal caliber/collapsed colon. Mild mesenteric edema. Colonic diverticulosis of the ascending colon. PELVIS: Appendix: Normal appendix. Bladder: Unremarkable. No mass. Reproductive: Unremarkable as visualized. ABDOMEN and PELVIS: Intraperitoneal space: Small amount of free fluid in the pelvis No free air. Bones/joints: No acute fracture. No dislocation. Soft tissues: Small fat-containing umbilical hernia. Vasculature: Unremarkable. No abdominal aortic aneurysm. Lymph nodes: Multiple small and borderline enlarged mesenteric nodes. IMPRESSION: 1. Multiple dilated small bowel loops with air-fluid levels throughout the abdomen and pelvis to the level of the terminal ileum/ileocecal valve. Wall thickening of many of these loops. Findings may represent small bowel obstruction with possible transition at the terminal ileum/ileocecal valve region. Also consider infectious, inflammatory or ischemic enteritis. Could consider a contrast study with long delay to further assess. 2. Small amount of free fluid in the pelvis. 3. Colonic diverticulosis. <MYCVCSECTION> Critical Value Communications 11/18/18 05:15 Call Doctor Regarding Above results, called Dr. Ruiz 11/18 05:15 (-04:00)
[2018-11-18] MEDS ORDERED: NALOXONE 0.4 MG/ML 1 ML VIAL IV PRN (05:35)
[2018-11-18] MEDS ORDERED: MORPHINE SULFATE 4 MG/ML SYRINGE IV PRN (05:35)
[2018-11-18] MEDS ORDERED: ONDANSETRON 4 MG/2 ML VIAL IVP PRN (05:41)
[2018-11-18] MEDS: SODIUM CHLORIDE 0.9% 1,000 ML IV SCH ×3 (06:18→23:17)
[2018-11-18] MEDS ORDERED: SODIUM CHLORIDE 0.9% 2,000 ML IV ONE (06:48)
[2018-11-18] MEDS: MORPHINE SULFATE 4 MG/ML SYRINGE IV PRN ×2 (11:52→17:55)
[2018-11-18 13:18] VITALS: BMI 31.4
--- NOTE | 2018-11-18 17:18 | P.GSHP ---
History of Present Illness H&P Date: 11/18/18 CHIEF COMPLAINT: Abdominal pain HISTORY OF PRESENT ILLNESS: The patient is a 28-year-old male who comes with history of recurrent small bowel obstruction. His first episode was over 5 years ago where he required laparoscopy with reduction of small bowel volvulus. He recently was admitted to the hospital last 6 months with recurrent small bowel obstruction. 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 He was last seen in the office 3 days ago and was doing fair. He reports in the last 1-2 days unable to pass flatus and increasing lower abdominal pain including abdominal distention. CT of the abdomen and pelvis was suggestive of bowel obstruction hence his admission. No reports of emesis. His last bowel movement was 4 days ago and small. PAST MEDICAL HISTORY: See list. PAST SURGICAL HISTORY: See list. MEDICATIONS: See list. ALLERGIES: See list. SOCIAL HISTORY: No illicit drug use FAMILY HISTORY: Positive for Crohn's disease or inflammatory bowel disease in his cousin REVIEW OF ORGAN SYSTEMS: CONSTITUTIONAL: No fevers or chills. EYES: Denies any trouble with vision. Wears glasses. HEENT: No difficulties with hearing. No nosebleeds. No difficulty swallowing. RESPIRATORY: Denies pneumonia. Denies any troubles with breathing or dyspnea on exertion. CARDIOVASCULAR: Denies any chest pain, palpitations, or recent heart attacks. GASTROINTESTINAL: Has change in bowel habits and gas bloat. Past bowel obstructions. History of gastroesophageal reflux disease. GENITOURINARY: Denies any blood in urine or increased urinary frequency. NEUROLOGICAL: Denies any numbness or tingling along the distal extremities. No seizure disorders or headaches. MUSCULOSKELETAL: Has back pain, stiffness or joint arthritis. SKIN: No current skin cancer. No rash. PSYCHIATRIC: Denies current depression or suicidal thoughts. ENDOCRINE: Denies current thyroid disorders. Denies any blood sugar glucose intolerance. HEME/LYMPHATIC: Denies any lumps and bumps around the neck. No recent deep venou s thrombosis. ALLERGY/IMMUNOLOGY: No immunoglobulin therapy. No immune deficiencies. BREAST: Denies current breast lumps, pain or nipple discharge. PHYSICAL EXAM: VITALS: Reviewed CONSTITUTIONAL: Well developed and in no acute distress. EYES: Conjuctivae without sclera icterus. Pupils are equally round and reactive to light. Extraocular movements grossly intact. HEAD, EARS, NOSE, THROAT: Moist buccal mucosa. Head is atraumatic, normocephalic. Hears conversational speech. No nasal drainage. NECK: Supple. No JV distention. No thyroidomegaly. RESPIRATORY: Non-labored respirations and equal bilateral excursions. No gross wheezes. CARDIOVASCULAR: Regular rate and rhythm. Extremities without moderate edema. Palpable 2+ radial pulses. ABDOMEN: No hepatomegaly. Soft. Mildly distended. No peritoneal signs. Tender lower abdomen. LYMPH: No neck lymphadenopathy. No axillary lymphadenopathy. MUSCULOSKELETAL: Nail and fingers with good capillary refill. SKIN: Warm and well perfused with good skin turgor. NEUROLOGIC: Cranial nerves I through XII grossly intact. Sensation upper and extremities intact. No focal or lateralizing signs. PSYCH: Appropriate affect. Alert and oriented to person, place and time. Displays appropriate insight. CLINCAL LABS: Reviewed. Lactic acid elevated over 2.0 IMAGING: Independently reviewed with gas through the colon however dilated small bowel over 3 cm proximally to the ileocecal valve. No inflammatory changes along the right lower quadrant and identified the recent surgery. RADIOLOGY: Report reviewed suggestive of obstruction at ileocecal valve. ASSESSMENT: 1. Small bowel obstruction 2. Family history of Crohn's disease 3. Lactic acidosis 4. Gastroesophageal reflux disease PLAN: 1. Recommendations of radiologist, we'll proceed with small bowel follow- through to elucidate pathology at ileocecal valve or complete small bowel obstruction. 2. Recommend chemistries for evaluation for Crohn's disease including CRP and ESR level. Pending results, consultation with gastroenterology. 3. Liquid diet and interim 4. IV fluid hydration with 2 L normal saline performed to address elevated lactic acid level 5. Surgical intervention may be necessary pending results of small bowel follow-through or complete small bowel obstruction Past Medical History Past Medical History: Asthma, GERD/Reflux Additional Past Medical History / Comment(s): OCCASIONAL ABDOMINAL PAIN, HAVING FREQUENT HEADACHES AND INSOMNIA, SBO History of Any Multi-Drug Resistant Organisms: None Reported Past Surgical History: No Surgical Hx Reported Additional Past Surgical History / Comment(s): SURGERY FOR "TWISTED INTESTINE", exploratory lap Past Anesthesia/Blood Transfusion Reactions: No Reported Reaction Past Psychological History: No Psychological Hx Reported Smoking Status: Never smoker Past Alcohol Use History: Rare Additional Past Alcohol Use History / Comment(s): social drinker Past Drug Use History: None Reported - Past Family History Mother Family Medical History: No Reported History Medications and Allergies Home Medications Medication Instructions Recorded Confirmed Type Ibuprofen [Motrin] 600 mg PO Q8HR PRN #30 tab 11/11/18 11/18/18 Rx Allergies Allergy/AdvReac Type Severity Reaction Status Date / Time tramadol AdvReac Nausea Verified 11/18/18 07:15 Surgical - Exam Vital Signs Temp Pulse Resp BP Pulse Ox 98 F 103 H 20 143/84 100 11/18/18 02:54 11/18/18 02:54 11/18/18 02:54 11/18/18 02:54 11/18/18 02:54 Results - Labs 11/18/18 03:40 11/18/18 03:40 Abnormal Lab Results - Last 24 Hours (Table) 11/18/18 11/18/18 11/18/18 Range/Units 03:40 03:40 03:40 WBC 11.0 H (3.8-10.6) k/uL RDW 15.8 H (11.5-15.5) % Neutrophils # 7.8 H (1.3-7.7) k/uL Glucose 137 H (74-99) mg/dL Plasma Lactic Acid Curt 2.5 H* (0.7-2.0) mmol/L Calcium 10.4 H (8.4-10.2) mg/dL Total Bilirubin 2.5 H (0.2-1.3) mg/dL ALT 19 L (21-72) U/L Total Protein 8.6 H (6.3-8.2) g/dL Urine Protein (Negative) Ur Leukocyte Esterase (Negative) Urine WBC (0-5) /hpf Urine Mucus (None) /hpf 11/18/18 Range/Units 03:40 WBC (3.8-10.6) k/uL RDW (11.5-15.5) % Neutrophils # (1.3-7.7) k/uL Glucose (74-99) mg/dL Plasma Lactic Acid Curt (0.7-2.0) mmol/L Calcium (8.4-10.2) mg/dL Total Bilirubin (0.2-1.3) mg/dL ALT (21-72) U/L Total Protein (6.3-8.2) g/dL Urine Protein 1+ H (Negative) Ur Leukocyte Esterase Trace H (Negative) Urine WBC 7 H (0-5) /hpf Urine Mucus Few H (None) /hpf Diabetes panel 11/18/18 Range/Units 03:40 Sodium 140 (137-145) mmol/L Potassium 3.9 (3.5-5.1) mmol/L Chloride 102 (98-107) mmol/L Carbon Dioxide 23 (22-30) mmol/L BUN 16 (9-20) mg/dL Creatinine 1.15 (0.66-1.25) mg/dL Glucose 137 H (74-99) mg/dL Calcium 10.4 H (8.4-10.2) mg/dL AST 18 (17-59) U/L ALT 19 L (21-72) U/L Alkaline Phosphatase 76 (38-126) U/L Total Protein 8.6 H (6.3-8.2) g/dL Albumin 4.9 (3.5-5.0) g/dL Calcium panel 11/18/18 Range/Units 03:40 Calcium 10.4 H (8.4-10.2) mg/dL Albumin 4.9 (3.5-5.0) g/dL Pituitary panel 11/18/18 Range/Units 03:40 Sodium 140 (137-145) mmol/L Potassium 3.9 (3.5-5.1) mmol/L Chloride 102 (98-107) mmol/L Carbon Dioxide 23 (22-30) mmol/L BUN 16 (9-20) mg/dL Creatinine 1.15 (0.66-1.25) mg/dL Glucose 137 H (74-99) mg/dL Calcium 10.4 H (8.4-10.2) mg/dL Adrenal panel 11/18/18 Range/Units 03:40 Sodium 140 (137-145) mmol/L Potassium 3.9 (3.5-5.1) mmol/L Chloride 102 (98-107) mmol/L Carbon Dioxide 23 (22-30) mmol/L BUN 16 (9-20) mg/dL Creatinine 1.15 (0.66-1.25) mg/dL Glucose 137 H (74-99) mg/dL Calcium 10.4 H (8.4-10.2) mg/dL Total Bilirubin 2.5 H (0.2-1.3) mg/dL AST 18 (17-59) U/L ALT 19 L (21-72) U/L Alkaline Phosphatase 76 (38-126) U/L Total Protein 8.6 H (6.3-8.2) g/dL Albumin 4.9 (3.5-5.0) g/dL
[2018-11-18] MEDS ORDERED: KETOROLAC 30 MG/ML 1 ML VIAL IVP PRN (20:24)
[2018-11-18] MEDS: HEPARIN SODIUM,PORCINE 5,000 UNIT/ML 1 ML VIAL SQ SCH (20:37)
[2018-11-18] MEDS: METOCLOPRAMIDE 5 MG/ML 2 ML VIAL IVP SCH (20:37)
[2018-11-18] MEDS: DEXAMETHASONE SOD PHOSPHATE 4 MG/ML 1 ML VIAL IV SCH (20:37)
[2018-11-19] MEDS: ONDANSETRON 4 MG/2 ML VIAL IVP SCH ×5 (00:24→23:50)
[2018-11-19] MEDS: DEXAMETHASONE SOD PHOSPHATE 4 MG/ML 1 ML VIAL IV SCH ×5 (00:24→23:50)
[2018-11-19] MEDS: METOCLOPRAMIDE 5 MG/ML 2 ML VIAL IVP SCH ×4 (02:33→20:45)
[2018-11-19 07:38] LABS: Basophils % (A) 0 %; Eosinophils % (A) 0 %; HCT 43.4 % (39.0-53.0); HGB 14.6 gm/dL (13.0-17.5); Lymphocytes # (A) 1.1 k/uL (1.0-4.8); Lymphocytes % (A) 16 %; MCHC 33.6 g/dL (31.0-37.0); MCV 89.1 fL (80.0-100.0); Mean Platelet Volume 6.7; Monocytes # (A) 0.3 k/uL (0-1.0); Monocytes % (A) 5 %; Neutrophils # (A) 5.4 k/uL (1.3-7.7); Neutrophils % (A) 78 %; Platelet Count 237 k/uL (150-450); RBC 4.87 m/uL (4.30-5.90); WBC 6.9 k/uL (3.8-10.6)
--- NOTE | 2018-11-19 07:40 | FL ---
EXAMINATION TYPE: FL small bowel follow through DATE OF EXAM: 11/19/2018 CLINICAL HISTORY: Bowel obstruction TECHNIQUE: A single contrast small bowel follow through is performed utilizing barium. COMPARISON: 11/18/2018 FINDINGS: Single AP view of the abdomen is submitted. Small bowel follow-through initiated day r. Single frontal view demonstrates contrast within the colon. There appears to be marked dilation of numerous small bowel loops. No definite transition point. IMPRESSION: 1. Marked dilation of small bowel loops in a pattern suspicious for distal small bowel obstruction. T here is contrast within the colon suggesting findings are compatible with partial obstruction.
[2018-11-19] MEDS: SODIUM CHLORIDE 0.9% 1,000 ML IV SCH ×6 (07:44→23:51)
[2018-11-19 07:57] LABS: ALT 19 U/L (21-72); AST 16 U/L (17-59); African American GFR (CKD) >90 (>60 ml/min/1.73 sqM); Albumin 4.2 g/dL (3.5-5.0); Alkaline Phosphatase 59 U/L (38-126); Anion Gap 11 mmol/L; Blood Urea Nitrogen 10 mg/dL (9-20); Calcium 9.4 mg/dL (8.4-10.2); Carbon Dioxide 22 mmol/L (22-30); Chloride 107 mmol/L (98-107); Glucose 118 mg/dL (74-99); Non-African American GFR(CKD) >90 (>60 ml/min/1.73 sqM); Potassium 4.4 mmol/L (3.5-5.1); Sodium 140 mmol/L (137-145); Total Bilirubin 2.3 mg/dL (0.2-1.3); Total Protein 7.3 g/dL (6.3-8.2)
[2018-11-19 08:09] LABS: C Reactive Protein 13.4 mg/L (<10.0)
[2018-11-19] MEDS: HEPARIN SODIUM,PORCINE 5,000 UNIT/ML 1 ML VIAL SQ SCH ×2 (09:00→20:48)
[2018-11-19 09:10] LABS: Erythrocyte Sedimentation Rate 8 mm/hr (0-15)
--- NOTE | 2018-11-19 14:07 | P.PN ---
Subjective Progress Note Date: 11/19/18 CHIEF COMPLAINT: Small bowel obstruction HISTORY OF PRESENT ILLNESS: The patient is a 28-year-old male with history of recurrent small bowel obstruction. He reports some improvement of his abdominal pain. He has not eaten or drank anything in over 24 hrs. He is passing more flatus today than yesterday. His mother is at bedside and provides additional history that he had diarrhea prior to admission. He has been on low dose Decadron to address nausea and inflammation. ROS: No bowel movements during hospitalization. No fevers or chills. No new chest pain. No productive sputum PHYSICAL EXAM: VITAL SIGNS: Reviewed CONSTITUTIONAL: Well developed and in no acute distress. EYES: Conjuctivae without sclera icterus. Extraocular movements grossly intact. HEAD, EARS, NOSE, THROAT: Moist buccal mucosa. Head is atraumatic, normocephalic. Hears conversational speech. No nasal drainage. NECK: Supple. No thyroidomegaly. RESPIRATORY: Non-labored respirations and equal bilateral excursions. CARDIOVASCULAR: Palpable 2+ radial pulses. Regular rate. Regular rhythm. ABDOMEN: Soft. No peritonitis. Minimal distention MUSCULOSKELETAL: No gross deformity of the lower extremities noted. No cl ubbing. No cyanosis. SKIN: Good skin turgor. Well perfused. NEUROLOGIC: Cranial nerves I through XII grossly intact. No focal or lateralizing signs. PSYCH: Appropriate affect. Alert and oriented to person, place and time. CLINCAL LABS: White blood cell count normal. Leukocytosis is resolved. CRP and ESR not significantly elevated to suggest Crohns disease STUDIES: His small bowel follow through personally reviewed showing contrast into the colon. CT of the abdomen/pelvis images reviewed with patient and family showing small bowel dilation to the ileocecal valve. ASSESSMENT: 1. Small bowel obstruction PLAN: 1. Will continue conservative management. 2. 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 3. Start clear liquid diet. Objective - Vital Signs Vital signs: Vital Signs Temp 98.4 F 11/19/18 05:00 Pulse 83 11/19/18 05:00 Resp 18 11/19/18 05:00 BP 106/62 11/19/18 05:00 Pulse Ox 96 11/19/18 05:00 Intake & Output 11/18/18 11/19/18 11/19/18 18:59 06:59 18:59 Intake Total 437.5 Balance 437.5 Intake: Intake, IV Titration 437.5 Amount Sodium Chloride 0.9% 1, 437.5 000 ml @ 125 mls/hr IV . Q8H [facility] Rx#:[id number] Other: Voiding Method Toilet Toilet Toilet # Voids 1 - Labs CBC & Chem 7: 11/19/18 07:14 11/19/18 07:14 Labs: Abnormal Lab Results - Last 24 Hours (Table) 11/19/18 Range/Units 07:14 Glucose 118 H (74-99) mg/dL Total Bilirubin 2.3 H (0.2-1.3) mg/dL AST 16 L (17-59) U/L ALT 19 L (21-72) U/L C-Reactive Protein 13.4 H (<10.0) mg/L Assessment and Plan (1) Abdominal distension Current Visit: Yes Status: Acute Code(s): R14.0 - ABDOMINAL DISTENSION (GASEOUS) SNOMED Code(s): 27353127 (2) Asthma Current Visit: Yes Status: Acute Code(s): J45.909 - UNSPECIFIED ASTHMA, UNCOMPLICATED SNOMED Code(s): 411712079 (3) SBO (small bowel obstruction) Current Visit: Yes Status: Acute Code(s): K56.609 - UNSP INTESTNL OBST, UNSP TO PARTIAL VERSUS COMPLETE OBST SNOMED Code(s): 022340162
[2018-11-20] MEDS: METOCLOPRAMIDE 5 MG/ML 2 ML VIAL IVP SCH ×2 (02:36→08:42)
[2018-11-20] MEDS: DEXAMETHASONE SOD PHOSPHATE 4 MG/ML 1 ML VIAL IV SCH ×2 (05:56→12:56)
[2018-11-20] MEDS: ONDANSETRON 4 MG/2 ML VIAL IVP SCH ×2 (05:57→12:55)
[2018-11-20 06:11] VITALS: BP 146/74; PULSE 89; RESP 16; TEMP 96.7
[2018-11-20 08:26] LABS: Basophils % (A) 0 %; Eosinophils # (A) 0.1 k/uL (0-0.7); Eosinophils % (A) 1 %; HCT 41.2 % (39.0-53.0); HGB 13.1 gm/dL (13.0-17.5); Lymphocytes % (A) 11 %; MCH 28.2 pg (25.0-35.0); MCHC 31.9 g/dL (31.0-37.0); MCV 88.5 fL (80.0-100.0); Mean Platelet Volume 6.5; Monocytes # (A) 0.4 k/uL (0-1.0); Monocytes % (A) 5 %; Neutrophils # (A) 7.4 k/uL (1.3-7.7); Neutrophils % (A) 83 %; Platelet Count 250 k/uL (150-450); RBC 4.65 m/uL (4.30-5.90)
[2018-11-20 08:37] LABS: ALT 21 U/L (21-72); AST 20 U/L (17-59); African American GFR (CKD) >90 (>60 ml/min/1.73 sqM); Albumin 3.9 g/dL (3.5-5.0); Alkaline Phosphatase 44 U/L (38-126); Anion Gap 9 mmol/L; Blood Urea Nitrogen 12 mg/dL (9-20); Calcium 9.1 mg/dL (8.4-10.2); Carbon Dioxide 21 mmol/L (22-30); Chloride 109 mmol/L (98-107); Glucose 142 mg/dL (74-99); Non-African American GFR(CKD) >90 (>60 ml/min/1.73 sqM); Potassium 4.4 mmol/L (3.5-5.1); Sodium 139 mmol/L (137-145); Total Bilirubin 2.1 mg/dL (0.2-1.3)
[2018-11-20] MEDS: SODIUM CHLORIDE 0.9% 1,000 ML IV SCH (08:42)
[2018-11-20] MEDS: HEPARIN SODIUM,PORCINE 5,000 UNIT/ML 1 ML VIAL SQ SCH (09:03)
--- NOTE | 2018-11-20 09:30 | P.PN ---
Subjective Progress Note Date: 11/20/18 CHIEF COMPLAINT: Small bowel obstruction HISTORY OF PRESENT ILLNESS: The patient is a 28-year-old male with history of recurrent small bowel obstruction. He had a bowel movement yesterday. He is passing moderate flatus. He reports that his abdominal pain has almost completely resolved. No further gas bloat. ROS: No fevers or chills. No new chest pain. No productive sputum. Had bowel movement PHYSICAL EXAM: VITAL SIGNS: Reviewed CONSTITUTIONAL: Well developed and in no acute distress. EYES: Conjuctivae without sclera icterus. Extraocular movements grossly intact. HEAD, EARS, NOSE, THROAT: Moist buccal mucosa. Head is atraumatic, normocephalic. Hears conversational speech. No nasal drainage. NECK: Supple. No thyroidomegaly. RESPIRATORY: Non-labored respirations and equal bilateral excursions. CARDIOVASCULAR: Palpable 2+ radial pulses. Regular rate. Regular rhythm. ABDOMEN: Soft. No peritonitis. Resolved distention. MUSCULOSKELETAL: No gross deformity of the lower extremities noted. No clubbing. No cyanosis. SKIN: Good skin turgor. Well perfused. NEUROLOGIC: Cranial nerves I through XII grossly intact. No focal or lateralizing signs. PSYCH: Appropriate affect. Alert and oriented to person, place and time. CLINCAL LABS: White blood cell count normal. ASSESSMENT: 1. Small bowel obstruction, resolving PLAN: 1. Advance to regular diet. 2. May discharge once tolerating diet. 3. New medication of reglan for discharge. Objective - Vital Signs Vital signs: Vital Signs Temp 96.7 F L 11/20/18 05:00 Pulse 89 11/20/18 05:00 Resp 16 11/20/18 05:00 BP 146/74 11/20/18 05:00 Pulse Ox 99 11/20/18 05:00 Intake & Output 11/19/18 11/20/18 11/20/18 18:59 06:59 18:59 Intake Total 1000 1000 Balance 1000 1000 Intake: Intake, IV Titration 1000 1000 Amount Sodium Chloride 0.9% 1, 1000 1000 000 ml @ 125 mls/hr IV . Q8H [facility] Rx#:[id number] Other: Voiding Method Toilet Toilet Toilet # Voids 2 # Bowel Movements 1 - Labs CBC & Chem 7: 11/20/18 08:13 11/20/18 08:13 Labs: Abnormal Lab Results - Last 24 Hours (Table) 11/20/18 Range/Units 08:13 Chloride 109 H (98-107) mmol/L Carbon Dioxide 21 L (22-30) mmol/L Glucose 142 H (74-99) mg/dL Total Bilirubin 2.1 H (0.2-1.3) mg/dL Assessment and Plan (1) Abdominal distension Current Visit: Yes Status: Acute Code(s): R14.0 - ABDOMINAL DISTENSION ( GASEOUS) SNOMED Code(s): 19639157 (2) Asthma Current Visit: Yes Status: Acute Code(s): J45.909 - UNSPECIFIED ASTHMA, UNCOMPLICATED SNOMED Code(s): 692336959 (3) SBO (small bowel obstruction) Current Visit: Yes Status: Acute Code(s): K56.609 - UNSP INTESTNL OBST, UNSP TO PARTIAL VERSUS COMPLETE OBST SNOMED Code(s): 991562404
--- NOTE | 2018-11-20 14:30 | P.DS ---
Providers Date of admission: 11/18/18 05:45 Expected date of discharge: 11/20/18 Attending physician: Shobha Lara Primary care physician: Shahid Grullon - Discharge Diagnosis(es) (1) Abdominal distension Current Visit: Yes Status: Acute (2) Asthma Current Visit: Yes Status: Acute (3) SBO (small bowel obstruction) Current Visit: Yes Status: Acute (4) Gastroesophageal reflux disease Current Visit: Yes Status: Acute Hospital Course: CHIEF COMPLAINT: Small bowel obstruction COURSE: The patient is a 28-year-old male with history of recurrent small bowel obstruction. Studies including CT abdomen pelvis and small bowel follow-through confirmed small bowel obstruction particularly distal. He was placed on the concoction of Reglan including Decadron as well as Zofran. After IV fluid hydration, abdominal distention had resolved. He was passing increased flatus. He tolerated regular diet. Patient was stable for discharge. Pertinent Studies: CT of the abdomen and pelvis demonstrated obstruction of all omental cecal valve Small bowel follow-through confirmed partial small bowel obstruction Patient Condition at Discharge: Stable Plan - Discharge Summary Discharge Rx Participant: Yes New Discharge Prescriptions: New Metoclopramide [Reglan] 10 mg PO ACHS #30 tab No Action Ibuprofen [Motrin] 600 mg PO Q8HR PRN #30 tab PRN Reason: Pain Discharge Medication List Ibuprofen [Motrin] 600 mg PO Q8HR PRN #30 tab 11/11/18 [Rx] Metoclopramide [Reglan] 10 mg PO ACHS #30 tab 11/20/18 [Rx] Follow up Appointment(s)/Referral(s): Mitchel Key MD [Primary Care Provider] - 1-2 days Shobha Lara MD [STAFF PHYSICIAN] - 11/22/18 Patient Instructions/Handouts: Bowel Obstruction (DC) Activity/Diet/Wound Care/Special Instructions: May shower. Notify office for increased abdominal pain or symptoms. Discharge Disposition: HOME SELF-CARE
== END 2018-11-20 14:45 | disposition home or self-care (01) | DRG 389 ==
LOC: EC 02:47 → 3NMEDONC 05:45
PROVIDERS: ADMIT Surgery Plastic and Reconstructive Surgery; ATTEND Surgery Plastic and Reconstructive Surgery
DX: K56.600 Partial intestinal obstruction, unspecified as to cause (principal); E87.2 Acidosis; Z83.79 Family history of other diseases of the digestive system; Z79.1 Long term (current) use of non-steroidal anti-inflammatories (NSAID); Z88.8 Allergy status to other drugs, medicaments and biological substances
CPT/HCPCS: 36415; 74019; 74177; 74250; 80053; 81001; 82150; 83605; 83630; 83690; 83993; 85025; 85652; 86140; 87045; 87046; 96361; 96374; 96375; 99285

== ENCOUNTER 2018-11-23 15:44 | Inpatient (IN) | payer OTHER ==
[2018-11-23] MEDS ORDERED: IOPAMIDOL-300 CONTRAST 30 ML VIAL (ORAL USE) PO PRN (16:37)
[2018-11-23] MEDS ORDERED: KETOROLAC 30 MG/ML 1 ML VIAL IVP STA ×2 (16:38→18:28)
[2018-11-23] MEDS ORDERED: SODIUM CHLORIDE 0.9% 1,000 ML IV ONE (16:38)
--- NOTE | 2018-11-23 16:41 | ED ---
Abdominal Pain HPI - General Chief Complaint: Abdominal Pain Stated Complaint: post op/abdominal pain Time Seen by Provider: 11/23/18 16:27 Source: patient Mode of arrival: ambulatory - History of Present Illness Initial Comments: 20-year-old male with past medical history of recurrent bowel obstructions presenting with abdominal pain and diarrhea. Patient states on November 11 he had a lysis of adhesions. He returned to the hospital last for abdominal pain and partial bowel obstruction. States he was discharged home and feeling well until 5 AM this morning when he began to have recurrent episodes of diarrhea and generalized abdominal pain. States he had 9 episodes of nonbloody diarrhea. States this feels similar to his previous obstructions. Denies any recent abx use. He states his Crohn's workup was negative. - Related Data Home Medications Medication Instructions Recorded Confirmed Acetaminophen [Tylenol] 650 mg PO Q4H PRN 11/23/18 11/23/18 Ibuprofen [Motrin Ib] 200 - 400 mg PO Q6H PRN 11/23/18 11/23/18 Metoclopramide [Reglan] 10 mg PO ACHS PRN 11/23/18 11/23/18 Allergies Allergy/AdvReac Type Severity Reaction Status Date / Time tramadol AdvReac Nausea Verified 11/23/18 17:02 Review of Systems ROS Statement: Those systems with pertinent positive or pertinent negative responses have been documented in the HPI. Review of Systems Constitutional: Denies fever, chills Eyes: Denies change in vision, Denies pain Ears, nose, mouth, throat: Denies headaches, Denies sore throat Cardiovascular: Denies chest pain. Denies palpitations Respiratory: Denies shortness of breath, Denies cough Gastrointestinal: Positive abdominal pain. Denies nausea, vomiting, Positive diarrhea. Genitourinary: Denies hematuria, Denies infections Musculoskeletal: Denies pain, Denies swelling Integumentary: Denies rash Neurological: Denies headache, focal weakness, focal numbness Psychiatric: Denies anxiety, Denies depression Hematologic/Lymphatic: Denies easy bleeding or bruising ROS Other: All systems not noted in ROS Statement are negative. Past Medical History Past Medical History: Asthma, GERD/Reflux Additional Past Medical History / Comment(s): OCCASIONAL ABDOMINAL PAIN, HAVING FREQUENT HEADACHES AND INSOMNIA, SBO History of Any Multi-Drug Resistant Organisms: None Reported Past Surgical History: No Surgical Hx Reported Additional Past Surgical History / Comment(s): SURGERY FOR "TWISTED INTESTINE", exploratory lap Past Anesthesia/Blood Transfusion Reactions: No Reported Reaction Past Psychological History: No Psychological Hx Reported Smoking Status: Never smoker Past Alcohol Use History: Rare Past Drug Use History: None Reported - Past Family History Mother Family Medical History: No Reported History General Exam - General Exam Comments Initial Comments: General: Awake, alert, No acute Distress HENT: Normocephalic. Atraumatic Eyes: PERRL. EOMI. No scleral icterus. No injected conjunctiva Neck: Full ROM Chest/Lungs: Clear to auscultation bilaterally. No wheezing, rhonchi, or rales Cardiac: Regular rate, rhythm. No murmurs or rubs Abdomen/GI: Soft, distended, generalized tenderness. No rebound, guarding, or rigidity. Musculoskeletal: Full ROM Skin: Warm, dry, intact Neurologic: A/Ox3, no weakness, no sensory deficit, no abnormal gait, no coordination deficit Course Vital Signs 11/23/18 11/23/18 11/23/18 16:18 18:10 20:42 Pulse Rate 89 73 79 Respiratory 18 16 16 Rate Blood Pressure 128/76 141/97 141/84 O2 Sat by Pulse 98 96 100 Oximetry Medical Decision Making - Medical Decision Making 28-year-old male with abdominal pain. Patient is a history of bowel obstructions. Laboratory workup is unremarkable. CT showed distended distal il eum contrast did not reach the cecum, is likely secondary to an ileus or partial obstruction near the distal ileum. Spoke with Dr. Lara who is agreeable to admission. - Lab Data Result diagrams: 11/23/18 16:45 11/23/18 16:45 Lab Results 11/23/18 11/23/18 Range/Units 16:45 16:45 WBC 10.8 H (3.8-10.6) k/uL RBC 5.27 (4.30-5.90) m/uL Hgb 15.5 (13.0-17.5) gm/dL Hct 45.7 (39.0-53.0) % MCV 86.7 (80.0-100.0) fL MCH 29.3 (25.0-35.0) pg MCHC 33.8 (31.0-37.0) g/dL RDW 12.9 (11.5-15.5) % Plt Count 299 (150-450) k/uL Neutrophils % 68 % Lymphocytes % 24 % Monocytes % 4 % Eosinophils % 3 % Basophils % 0 % Neutrophils # 7.4 (1.3-7.7) k/uL Lymphocytes # 2.6 (1.0-4.8) k/uL Monocytes # 0.4 (0-1.0) k/uL Eosinophils # 0.3 (0-0.7) k/uL Basophils # 0.0 (0-0.2) k/uL Sodium 137 (137-145) mmol/L Potassium 4.0 (3.5-5.1) mmol/L Chloride 105 (98-107) mmol/L Carbon Dioxide 21 L (22-30) mmol/L Anion Gap 11 mmol/L BUN 15 (9-20) mg/dL Creatinine 0.94 (0.66-1.25) mg/dL Est GFR (CKD-EPI)AfAm >90 (>60 ml/min/1.73 sqM) Est GFR (CKD-EPI)NonAf >90 (>60 ml/min/1.73 sqM) Glucose 99 (74-99) mg/dL Calcium 9.5 (8.4-10.2) mg/dL Disposition Clinical Impression: Ileus, Abdominal pain Disposition: ADMITTED IP TO THIS [facility] Is patient prescribed a controlled substance at d/c from ED?: No Decision to Admit Reason: Admit from EC Decision Date: 11/23/18 Decision Time: 19:07
[2018-11-23 17:02] LABS: Basophils % (A) 0 %; Eosinophils # (A) 0.3 k/uL (0-0.7); Eosinophils % (A) 3 %; HCT 45.7 % (39.0-53.0); HGB 15.5 gm/dL (13.0-17.5); Lymphocytes # (A) 2.6 k/uL (1.0-4.8); Lymphocytes % (A) 24 %; MCH 29.3 pg (25.0-35.0); MCHC 33.8 g/dL (31.0-37.0); MCV 86.7 fL (80.0-100.0); Mean Platelet Volume 6.8; Monocytes # (A) 0.4 k/uL (0-1.0); Monocytes % (A) 4 %; Neutrophils # (A) 7.4 k/uL (1.3-7.7); Neutrophils % (A) 68 %; Platelet Count 299 k/uL (150-450); RBC 5.27 m/uL (4.30-5.90); RDW 12.9 % (11.5-15.5); WBC 10.8 k/uL (3.8-10.6)
[2018-11-23 17:09] LABS: African American GFR (CKD) >90 (>60 ml/min/1.73 sqM); Anion Gap 11 mmol/L; Blood Urea Nitrogen 15 mg/dL (9-20); Calcium 9.5 mg/dL (8.4-10.2); Carbon Dioxide 21 mmol/L (22-30); Chloride 105 mmol/L (98-107); Glucose 99 mg/dL (74-99); Sodium 137 mmol/L (137-145)
[2018-11-23] MEDS ORDERED: ACETAMINOPHEN TAB 325 MG TAB PO STA (18:28)
--- NOTE | 2018-11-23 19:01 | CT ---
EXAMINATION TYPE: CT abdomen pelvis w con DATE OF EXAM: 11/23/2018 COMPARISON: 11/18/2018 HISTORY: Recent bowel obstruction with surgery. Abdominal pain, nausea and diarrhea. CT DLP: 1097.7 mGycm Automated exposure control for dose reduction was used. TECHNIQUE: Helical acquisition of images was performed from the lung bases through the pelvis. CONTRAST: Performed with Oral Contrast and with IV Contrast, patient injected with 100 mL of Isovue 300. FINDINGS: Lung bases are clear. There is no pleural effusion. Heart size is normal. There is no pericardial eff usion. Liver spleen pancreas gallbladder appear normal. Stomach appears normal. Bile ducts are not di lated. There is normal contrast opacification of the proximal small bowel. There is contrast in the a ppendix which appears normal. Bladder distends smoothly. There is no inguinal hernia. There is normal contrast opacification of the kidneys. There is no hydronephrosis. There is no adrena l mass. There is no retroperitoneal adenopathy. Ureters are not dilated. There is no ascites. There is no free air. Exam is limited by artifact from barium in the cecum. Term inal ileum is upper limit of normal diameter measures up to 3.2 cm. There is some fecal appearance of the terminal ileum. IMPRESSION: DISTENDED DISTAL ILEUM. THERE IS SIGNIFICANT IMPROVEMENT IN THE OBSTRUCTIVE APPEARANCE OF THE SMALL B OWEL COMPARED TO LAST EXAM. NO FREE AIR. THE ORAL CONTRAST DOES NOT REACH THE CECUM. THERE IS PROBABLY SOME ILEUS OR PERSISTENT P ARTIAL OBSTRUCTION OF THE DISTAL ILEUM.
[2018-11-23] MEDS ORDERED: NALOXONE 0.4 MG/ML 1 ML VIAL IV PRN (19:07)
[2018-11-23] MEDS ORDERED: ACETAMINOPHEN TAB 325 MG TAB PO PRN (19:07)
[2018-11-23] MEDS ORDERED: KETOROLAC 30 MG/ML 1 ML VIAL IVP PRN (19:07)
[2018-11-24] MEDS ORDERED: SODIUM CHLORIDE 0.9% 1,000 ML IV ONE (13:11)
--- NOTE | 2018-11-24 13:13 | P.PN ---
<Latha Reyes A - Last Filed: 11/24/18 13:05> Subjective Progress Note Date: 11/24/18 CHIEF COMPLAINT: Abdominal pain HISTORY OF PRESENT ILLNESS: Patient seen and examined this morning at the bedside. Patient currently rates his pain 5 out of 10. Reports pain is mostly at the lower mid to right lower quadrant. Tolerating patient ice chips and popsicles. Denies nausea or vomiting. Passing flatus. Reports loose nonbloody bowel movement this morning. Vital signs stable. Afebrile. PHYSICAL EXAM: VITAL SIGNS: Reviewed GENERAL: Well-developed in no acute distress. HEENT: No sclera icterus. Extraocular movements grossly intact. Moist buccal mucosa. Head is atraumatic, normocephalic. Hears conversational speech. No nasal drainage. NECK: Supple without lymphadenopathy. CHEST: Non-labored respirations and equal bilateral excursions. CARDIOVASCULAR: Regular rate with regular rhythm. Palpable 2+ radial pulses. ABDOMEN: Soft. Nondistended. Mild tenderness with palpation to lower mid right quadrant. Positive bowel sounds. No peritoneal signs. MUSCULOSKELETAL: No clubbing, cyanosis or edema. NEUROLOGIC: No focal or lateralizing signs. Cranial nerves II through XII grossly intact. PSYCH: Appropriate affect. Alert and oriented to person, place and time. SKIN: Well perfused. Good skin turgor. ASSESSMENT: 1. Abdominal pain, suspected chronic small bowel obstruction 2. 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 Gastroesophageal reflux disease 4. Family history of Crohn's disease PLAN: 1. Clear liquid diet today. Nothing by mouth at midnight 2. 1 L fluid bolus. Maintenance IV fluids at 100 mL an hour. 3. Pain control. Dilaudid as needed 4. Patient to undergo exploratory laparotomy with possible ileocolectomy tomorrow with Dr. Lara Nurse practitioner note has been reviewed by physician. Signing provider agrees with the documented findings, assessment, and plan of care. Objective - Vital Signs Vital signs: Vital Signs Temp 97.7 F 11/24/18 07:00 Pulse 71 11/24/18 08:00 Resp 12 11/24/18 08:00 BP 114/53 11/24/18 07:00 Pulse Ox 99 11/24/18 07:00 Intake & Output 11/23/18 11/24/18 11/24/18 18:59 06:59 18:59 Weight 111.13 kg Other: Voiding Method Toilet Toilet # Voids 0 - Labs CBC & Chem 7: 11/23/18 16:45 11/23/18 16:45 Labs: Abnormal Lab Results - Last 24 Hours (Table) 11/23/18 11/23/18 Range/Units 16:45 16:45 WBC 10.8 H (3.8-10.6) k/uL Carbon Dioxide 21 L (22-30) mmol/L Assessment and Plan (1) Abdominal pain Current Visit: Yes Status: Acute Code(s): R10.9 - UNSPECIFIED ABDOMINAL PAIN SNOMED Code(s): 16602008 (2) Gastroesophageal reflux disease Current Visit: No Status: Acute Code(s): K21.9 - GASTRO-ESOPHAGEAL REFLUX DISEASE WITHOUT ESOPHAGITIS SNOMED Code(s): 157409890 (3) SBO (small bowel obstruction) Current Visit: No Status: Acute Code(s): K56.609 - UNSP INTESTNL OBST, UNSP TO PARTIAL VERSUS COMPLETE OBST SNOMED Code(s): 888114409 <Shobha Lara N - Last Filed: 11/24/18 18:09> Subjective As above, surgical intervention with open laparotomy described. Placement of nasogastric tube, Wagoner catheter postprocedure also reviewed with all questions addressed Objective - Vital Signs Vital signs: Vital Signs Temp 98.2 F 11/24/18 15:00 Pulse 75 11/24/18 15:00 Resp 12 11/24/18 15:00 BP 132/85 11/24/18 15:00 Pulse Ox 99 11/24/18 15:00 Intake & Output 11/23/18 11/24/18 11/24/18 18:59 06:59 18:59 Intake Total 700 Balance 700 Weight 111.13 kg Intake: Intake, IV Titration 700 Amount Sodium Chloride 0.9% 1, 700 000 ml @ 100 mls/hr IV . Q10H [facility] Rx#:[id number] Other: Voiding Method Toilet Toilet # Voids 0 - Labs CBC & Chem 7: 11/23/18 16:45 11/23/18 16:45
[2018-11-24] MEDS: HEPARIN SODIUM,PORCINE 5,000 UNIT/ML 1 ML VIAL SQ SCH ×2 (17:50→22:44)
[2018-11-24] MEDS: SODIUM CHLORIDE 0.9% 1,000 ML IV SCH ×2 (17:52→22:46)
--- NOTE | 2018-11-24 18:08 | P.GSHP ---
History of Present Illness H&P Date: 11/23/18 CHIEF COMPLAINT: Small bowel obstruction HISTORY OF PRESENT ILLNESS: The patient is a 28-year-old male recently hospitalized 1 week ago for small bowel obstruction. CT of the abdomen and pelvis including small bowel follow-through confirmed possible obstruction at the ileocecal valve along his previous admission. Conservative measures were used and he was able to pass flatus and tolerate diet hence his discharge. He reports doing well at home for at least the last 2-3 days where he started to develop recurrent lower abdominal pain and inability to pass flatus including abdominal distention. This is his third bowel obstruction in less than 3 months. He had recent diagnostic laparoscopy demonstrating no adhesive band disease. Despite conservative measures he now presents with recurrent bowel obstruction hence his admission. No reports of fevers or chills. He does report nausea. He does report moderate abdominal pain bilateral lower abdomen and right greater than left. PAST MEDICAL HISTORY: See list. PAST SURGICAL HISTORY: See list. MEDICATIONS: See list. ALLERGIES: See list. SOCIAL HISTORY: See list. FAMILY HISTORY: Positive for Crohn's disease or inflammatory bowel disease in his cousin REVIEW OF ORGAN SYSTEMS: CONSTITUTIONAL: No fevers or chills. EYES: Denies any trouble with vision. Wears glasses. HEENT: No difficulties with hearing. No nosebleeds. No difficulty swallowing. RESPIRATORY: Denies pneumonia. Denies any troubles with breathing or dyspnea on exertion. CARDIOVASCULAR: Denies any chest pain, palpitations, or recent heart attacks. GASTROINTESTINAL: Recurrent small bowel obstructions 4. History of gastroesophageal reflux disease. GENITOURINARY: Denies any blood in urine or increased urinary frequency. NEUROLOGICAL: Denies any numbness or tingling along the distal extremities. No seizure disorders or headaches. MUSCULOSKELETAL: Has back pain, stiffness or joint arthritis. SKIN: No current skin cancer. No rash. PSYCHIATRIC: Denies current depression or suicidal thoughts. ENDOCRINE: Denies current thyroid disorders. Denies any blood sugar glucose intolerance. HEME/LYMPHATIC: Denies any lumps and bumps around the neck. No recent deep venous thrombosis. ALLERGY/IMMUNOLOGY: No immunoglobulin therapy. No immune deficiencies. BREAST: Denies current breast lumps, pain or nipple discharge. PHYSICAL EXAM: VITALS: Reviewed CONSTITUTIONAL: Well developed and in no acute distress. EYES: Conjuctivae without sclera icterus. Pupils are equally round and reactive to light. Extraocular movements grossly intact. HEAD, EARS, NOSE, THROAT: Moist buccal mucosa. Head is atraumatic, normocephalic. Hears conversational speech. No nasal drainage. NECK: Supple. No JV distention. No thyroidomegaly. RESPIRATORY: Non-labored respirations and equal bilateral excursions. No gross wheezes. CARDIOVASCULAR: Regular rate and rhythm. Extremities without moderate edema. Palpable 2+ radial pulses. ABDOMEN: Soft. Mild distention. Tenderness along the bilateral lower abdomen and right greater than left. Laparoscopic site incisions along left lateral abdominal wall intact. No cellulitis. LYMPH: No neck lymphadenopathy. No axillary lymphadenopathy. MUSCULOSKELETAL: Nail and fingers with good capillary refill. SKIN: Warm and well perfused with good skin turgor. NEUROLOGIC: Cranial nerves I through XII grossly intact. Sensation upper and extremities intact. No focal or lateralizing signs. PSYCH: Appropriate affect. Alert and oriented to person, place and time. Displays appropriate insight. CLINCAL LABS: Reviewed. White blood cell count elevated. IMAGING: Independently reviewed and compared to prior studies demonstrates mild dilation of the small bowel. Colon unremarkable. Residual contrast from small bowel follow-through has artifact of the bilateral lower pelvis. Questionably long appendix identified. RADIOLOGY: Report reviewed suggestive of obstruction ASSESSMENT: 1. Small bowel obstruction, recurrent PLAN: 1. Despite multiple conservative measures as well as diagnostic laparoscopy, he has focal area of concern at the ileocecal valve with distal small bowel obstruction. 2. Recommend admission with IV fluid hydration. Upon this admission, surgical intervention with open laparotomy described including ileocolectomy as to confirm location of recurrent bowel obstruction. 3. DVT prophylaxis 4. Inpatient hospitalization greater than two nights also reviewed 5. Diagram and education of area of obstruction including small bowel and colon reviewed with both the patient and mother at bedside. Overall patient agreeable with plan of care including surgery Past Medical History Past Medical History: Asthma, GERD/Reflux Additional Past Medical History / Comment(s): OCCASIONAL ABDOMINAL PAIN, HAVING FREQUENT HEADACHES AND INSOMNIA, SBO History of Any Multi-Drug Resistant Organisms: None Reported Past Surgical History: No Surgical Hx Reported Additional Past Surgical History / Comment(s): SURGERY FOR "TWISTED INTESTINE", exploratory lap Past Anesthesia/Blood Transfusion Reactions: No Reported Reaction Past Psychological History: No Psychological Hx Reported Smoking Status: Never smoker Past Alcohol Use History: Rare Past Drug Use History: None Reported - Past Family History Mother Family Medical History: No Reported History Medications and Allergies Home Medications Medication Instructions Recorded Confirmed Type Acetaminophen [Tylenol] 650 mg PO Q4H PRN 11/23/18 11/23/18 History Ibuprofen [Motrin Ib] 200 - 400 mg PO Q6H PRN 11/23/18 11/23/18 History Metoclopramide [Reglan] 10 mg PO ACHS PRN 11/23/18 11/23/18 History Allergies Allergy/AdvReac Type Severity Reaction Status Date / Time tramadol AdvReac Nausea Verified 11/23/18 17:02 Surgical - Exam Vital Signs Pulse Resp BP Pulse Ox 89 18 128/76 98 11/23/18 16:18 11/23/18 16:18 11/23/18 16:18 11/23/18 16:18 Results - Labs 11/23/18 16:45 11/23/18 16:45
[2018-11-24] MEDS: ONDANSETRON 4 MG/2 ML VIAL IVP PRN (22:44)
[2018-11-24] MEDS: HYDROmorphone 0.5 MG/0.5 ML SYRINGE IVP PRN (22:45)
[2018-11-25] MEDS: HEPARIN SODIUM,PORCINE 5,000 UNIT/ML 1 ML VIAL SQ SCH ×2 (07:42→15:29)
[2018-11-25] MEDS: PANTOPRAZOLE 40 MG/10 ML VIAL IVP SCH (08:02)
[2018-11-25] MEDS: HYDROmorphone 0.5 MG/0.5 ML SYRINGE IVP PRN ×2 (08:02→16:43)
[2018-11-25 09:19] LABS: Basophils % (A) 0 %; Eosinophils # (A) 0.2 k/uL (0-0.7); Eosinophils % (A) 2 %; Lymphocytes # (A) 1.9 k/uL (1.0-4.8); Lymphocytes % (A) 26 %; MCH 29.4 pg (25.0-35.0); MCHC 33.3 g/dL (31.0-37.0); MCV 88.2 fL (80.0-100.0); Mean Platelet Volume 6.7; Monocytes # (A) 0.4 k/uL (0-1.0); Monocytes % (A) 5 %; Neutrophils # (A) 4.8 k/uL (1.3-7.7); Neutrophils % (A) 66 %; Platelet Count 263 k/uL (150-450); RBC 4.76 m/uL (4.30-5.90); RDW 14.8 % (11.5-15.5); WBC 7.4 k/uL (3.8-10.6)
[2018-11-25 09:30] LABS: ALT 34 U/L (21-72); AST 15 U/L (17-59); African American GFR (CKD) >90 (>60 ml/min/1.73 sqM); Albumin 3.7 g/dL (3.5-5.0); Alkaline Phosphatase 52 U/L (38-126); Anion Gap 8 mmol/L; Blood Urea Nitrogen 9 mg/dL (9-20); Calcium 9.3 mg/dL (8.4-10.2); Carbon Dioxide 25 mmol/L (22-30); Chloride 110 mmol/L (98-107); Glucose 88 mg/dL (74-99); Potassium 4.4 mmol/L (3.5-5.1); Sodium 143 mmol/L (137-145); Total Protein 6.7 g/dL (6.3-8.2)
[2018-11-25] MEDS: SODIUM CHLORIDE 0.9% 1,000 ML IV SCH (10:16)
--- NOTE | 2018-11-25 13:47 | P.HPADDEND ---
H&P Addendum H&P Addendum Date: 11/25/18 Patient seen and evaluated. Patient reports abdominal pain including small bowel obstructive symptoms. Will proceed with open exploratory laparotomy including ileocolectomy for persistent area of obstruction. Placement of nasogastric tube and Wagoner catheter also reviewed. Patient and family at [facility] e agreeable to proceed with surgery. All questions were addressed.
[2018-11-25] MEDS ORDERED: SODIUM CHLORIDE 0.9% 1,000 ML IV ONE ×2 (17:45)
[2018-11-25] MEDS ORDERED: fentaNYL (PF) 50 MCG/ML 2 ML AMP IVP ONE (17:56)
[2018-11-25] MEDS ORDERED: MIDAZOLAM (PF) 2 MG/2 ML VIAL IVP ONE (17:56)
[2018-11-25] MEDS ORDERED: diphenhydrAMINE 50 MG/ML 1 ML VIAL IVP PRN (18:13)
[2018-11-25] MEDS ORDERED: NALOXONE 0.4 MG/ML 1 ML VIAL IV PRN (18:13)
[2018-11-25] MEDS ORDERED: fentaNYL (PF) 50 MCG/ML 2 ML AMP ONE (20:08)
[2018-11-25] MEDS ORDERED: LIDOCAINE 1% INJ 10MG/ML (20 ML MDV) ONE (20:08)
[2018-11-25] MEDS ORDERED: MIDAZOLAM 2 MG/2 ML VIAL ONE (20:08)
[2018-11-25] MEDS ORDERED: PROPOFOL 10 MG/ML 20 ML VIAL IV ONE (20:08)
[2018-11-25] MEDS ORDERED: VECURONIUM 10 MG VIAL IV ONE (20:08)
[2018-11-25] MEDS ORDERED: GLYCOPYRROLATE 0.2 MG/ML 2 ML VIAL ONE (20:08)
[2018-11-25] MEDS ORDERED: SUCCINYLCHOLINE CHLORIDE 100 MG/5 ML SYR IV ONE (20:08)
[2018-11-25] MEDS ORDERED: NEOSTIGMINE 1 MG/ML 10 ML VIAL ONE (20:08)
[2018-11-25] MEDS ORDERED: LACTATED RINGERS 1,000 ML IV ONE ×4 (20:35→23:44)
[2018-11-25] MEDS ORDERED: ceFAZolin 1,000 MG VIAL IV ONE (20:35)
[2018-11-25] MEDS ORDERED: KETOROLAC 30 MG/ML 1 ML VIAL IVP PRN (23:16)
--- NOTE | 2018-11-25 23:16 | P.OP ---
Date of Procedure: 11/25/18 Description of Procedure: SURGEON: PHUONG MCCLELLAN MD LINEN SORTER: NONE. PREOPERATIVE DIAGNOSIS: 1. Recurrent small bowel obstruction 2. Abnormal computed tomography scan ileocecal obstruction 3. Family history of Crohn's disease POSTOPERATIVE DIAGNOSIS: 1. Recurrent small bowel obstruction 2. Abnormal computed tomography scan ileocecal obstruction 3. Family history of Crohn's disease 4. Small bowel volvulus 5. Congenital malformation small bowel mesentery Procedure(s) Performed: 1. Exploratory laparotomy with ileocolectomy 2. Application of universal incisional wound VAC system, PREVENA Anesthesia: GETA, epidural Estimated Blood Loss (ml): 50 Pathology: other (Ileocolectomy with appendix en bloc) Condition: stable Disposition: floor Complications: None. Operative Findings: 1. 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 Abnormal congenital band ileocecal valve to right pelvis and appendix creating a functional bowel obstruction 3. Extremely long appendix 15 cm resected en bloc with ileocolectomy 4. Mobilization of the ileocolic mesentery including cecum and small bowel for isoperistaltic anastomosis 5. Right lower quadrant mesenteric defect closed using 3-0 silk 6. Ileum and ileocecal valve tethered to the right pelvis with appendix creating a functional small bowel obstruction in the setting of small bowel volvulus INDICATIONS: The patient is a 28-year-old male who has history of recurrent small bowel obstruction at least 4 times in the last 5 years. He's had 3 recurrent small bowel obstructions less than 3 months. Despite conservative management, additional diagnostic studies demonstrated distal small bowel obstruction at the ileocecal valve. Surgical intervention was advised with open exploratory laparotomy with ileocolectomy. Benefits and risks of the procedures were discussed. Informed consent was obtained. The patient's family were at bedside. DESCRIPTION: The patient was brought to the operating room. An epidural was placed per anesthesia. After general induction, a Wagoner catheter was placed. The abdomen was prepped and draped in standard sterile fashion. Ioban draping was also placed. Prior to incision, a timeout protocol was confirmed with surgical team regarding patient's name including procedures to be performed. Preoperative medications were confirmed. A #10 blade was used to enter along the epigastrium and extended down to the pubis. Carefully the abdomen was entered using electro- Bovie cautery. Attention was brought to the right lower quadrant where abnormal congenital band to the ileocecal valve of the right pelvis and appendix was creating a functi onal bowel obstruction. Terminal ileum and ileocecal valve were tethered to the right pelvis with an extremely long appendix also creating a functional small bowel obstruction in the setting of small bowel volvulus. 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 The small bowel was de-rotated at its root at 180. Despite anatomical rotation, a functional small bowel obstruction at the ileocecal valve was still present. The ileocecal valve and cecum were mobilized along the retroperitoneum to the hepatic flexure. Mobilization of the ileocolic mesentery including cecum and small bowel was prepared for resection. 5 cm proximal to the ileocecal valve, a window was created along the mesentery. Similarly, the cecum was prepared for resection. Once the cecum was similarly elevated, the ileocolic artery was divided using energy device and sealed. An extremely long appendix 15 cm was prepared for resection en bloc with ileocolectomy. A combination of purple and elliott tri-stapler loads 60 mm Covidien Endo ALLEN stapler was used for distal and proximal bowel resection. An isoperistaltic primary anastomosis was prepared from the ileum to the ascending colon after creating enterotomy and colotomy along the antimesenteric border. A octavio-lumen was created using purple 60-mm staple loads. The enterotomies were closed using similar staple load. The right lower quadrant mesenteric defect was closed using 3-0 silk. Next, nasogastric tube was palpated in the stomach and positioned. All instruments and gowns including gloves were changed after copiously irrigating the abdomen with over 3 L of warm normal saline until the aspirate was clear. The abdomen was dried using towels. The sponge count was verified as correct. The abdomen was closed using double stranded 0 PDS. The skin incision was reapproximated using interrupted 3-0 Vicryl for the dermis at the umbilicus with stainless skin rigoberto for the resident incision. An PREVENA incisional wound VAC system was placed after placing on the skin Tegaderm. Wound vac sponge was placed over the midline incision. Tegaderm was placed over the sponge system. A 3 cm circular disk was cut above the umbilicus dressing. A suction device was placed. No leak within the system was confirmed. At the end of the procedure, needle, sponge, and instrument count had been verified correct by the surgical coordinator. The patient was sent to the postanesthesia care unit in stable condition.
[2018-11-25] MEDS ORDERED: SODIUM CHLORIDE 0.9% 2,000 ML IV ONE (23:18)
[2018-11-25] MEDS ORDERED: PROMETHAZINE INJ 25 MG/ML 1 ML VIAL IVPB ONE (23:30)
[2018-11-25] MEDS: ROPIVACAINE 250 MG, HYDROMORPHONE (PF) 5 MG in SODIUM CHLORIDE 0.9% 200 ML EPIDURAL PRN (23:53)
[2018-11-26] MEDS: metroNIDAZOLE-NS PMX 500 MG in SALINE 1 100ML.BAG IVPB SCH ×4 (01:23→17:34)
[2018-11-26] MEDS: HEPARIN SODIUM,PORCINE 5,000 UNIT/ML 1 ML VIAL SQ SCH ×3 (01:23→15:04)
[2018-11-26] MEDS: SODIUM CHLORIDE 0.9% 1,000 ML IV SCH ×5 (01:24→14:39)
[2018-11-26 07:12] LABS: Basophils % (A) 0 %; Eosinophils % (A) 0 %; HCT 42.3 % (39.0-53.0); HGB 13.9 gm/dL (13.0-17.5); Lymphocytes # (A) 0.9 k/uL (1.0-4.8); Lymphocytes % (A) 6 %; MCH 29.2 pg (25.0-35.0); MCHC 32.9 g/dL (31.0-37.0); MCV 88.7 fL (80.0-100.0); Mean Platelet Volume 6.4; Monocytes # (A) 0.6 k/uL (0-1.0); Monocytes % (A) 5 %; Neutrophils % (A) 88 %; Platelet Count 259 k/uL (150-450); RBC 4.77 m/uL (4.30-5.90); WBC 13.6 k/uL (3.8-10.6)
[2018-11-26 07:31] LABS: African American GFR (CKD) >90 (>60 ml/min/1.73 sqM); Anion Gap 10 mmol/L; Blood Urea Nitrogen 9 mg/dL (9-20); Carbon Dioxide 23 mmol/L (22-30); Chloride 106 mmol/L (98-107); Glucose 95 mg/dL (74-99); Potassium 4.4 mmol/L (3.5-5.1); Sodium 139 mmol/L (137-145)
[2018-11-26] MEDS: PANTOPRAZOLE 40 MG/10 ML VIAL IVP SCH (07:59)
[2018-11-26] MEDS ORDERED: FAMOTIDINE 20 MG/2 ML VIAL IV SCH (09:00)
--- NOTE | 2018-11-26 10:41 | P.PN ---
Subjective Progress Note Date: 11/26/18 CHIEF COMPLAINT: Recurrent small bowel obstruction HISTORY OF PRESENT ILLNESS: The patient is a 28-year-old male status post ileocolectomy for recurrent small bowel obstruction, 11/25/2018. POD 1. Family is at bedside. Intraoperative findings reviewed including small bowel volvulus and tethered ileocecal valve with appendix. No nausea. NGT bilious. He has an epidural. ROS: No reports of nausea and vomiting. No bowel movements. No fevers or chills. No new chest pain. No productive sputum PHYSICAL EXAM: VITAL SIGNS: Reviewed CONSTITUTIONAL: Well developed and in no acute distress. EYES: Conjuctivae without sclera icterus. Extraocular movements grossly intact. HEAD, EARS, NOSE, THROAT: Dry buccal mucosa. Head is atraumatic, normocephalic. Hears conversational speech. No nasal drainage. NECK: Supple. No thyroidomegaly. RESPIRATORY: Non-labored respirations and equal bilateral excursions. CARDIOVASCULAR: Palpable 2+ radial pulses. ABDOMEN: Incisions clean dry and intact. Soft. No peritonitis. MUSCULOSKELETAL: No gross deformity of the lower extremities noted. No clubbin g. No cyanosis. SKIN: Good skin turgor. Well perfused. NEUROLOGIC: Cranial nerves I through XII grossly intact. No focal or lateralizing signs. PSYCH: Appropriate affect. Alert and oriented to person, place and time. CLINCAL LABS: White blood cell count normal elevated 15,000 ASSESSMENT: 1. Small bowel volvulus, congenital 2. Recurrent small bowel obstruction PLAN: 1. Continue NG tube 2. Ambulation encouraged 3. Continue epidural per protocol 4. Ice chips and popsicles Objective - Vital Signs Vital signs: Vital Signs Temp 99.0 F 11/26/18 07:01 Pulse 101 H 11/26/18 07:01 Resp 15 11/26/18 07:01 BP 125/81 11/26/18 07:01 Pulse Ox 98 11/26/18 07:01 Intake & Output 11/25/18 11/26/18 11/26/18 18:59 06:59 18:59 Intake Total 0 2491.267 Output Total 600 Balance 0 1891.267 Intake: IV 2446 Intake, IV Titration 45.267 Amount Ropivacaine 250 mg 45.267 Hydromorphone (Pf) 5 mg In Sodium Chloride 0.9% 200 ml @ Per Protocol EPIDURAL .Q0M PRN Rx#: [id number] Oral 0 Output: Gastric Drainage 50 Urine 500 Estimated Blood Loss 50 Other: Voiding Method Toilet Indwelling Catheter Indwelling Catheter # Voids 2 - Labs CBC & Chem 7: 11/26/18 06:35 11/26/18 06:35 Labs: Abnormal Lab Results - Last 24 Hours (Table) 11/26/18 Range/Units 06:35 WBC 13.6 H (3.8-10.6) k/uL Neutrophils # 12.0 H (1.3-7.7) k/uL Lymphocytes # 0.9 L (1.0-4.8) k/uL Assessment and Plan (1) Small bowel volvulus Current Visit: Yes Status: Acute Code(s): K56.2 - VOLVULUS SNOMED Code(s): 021343716 (2) SBO (small bowel obstruction) Current Visit: No Status: Acute Code(s): K56.609 - UNSP INTESTNL OBST, UNSP TO PARTIAL VERSUS COMPLETE OBST SNOMED Code(s): 392978994
[2018-11-26] MEDS: ONDANSETRON 4 MG/2 ML VIAL IVP PRN (16:14)
--- NOTE | 2018-11-26 19:44 | P.PN ---
Progress Note - Text Progress Note Date: 11/26/18 Postoperative day #12 status post expected laparotomy , iliocolectomy/epidural catheter placed for postoperative analgesia, patient doing well epidural site okay, patient currently on combination of epidural infusion solution of Ropivacaine 0.0625% and Dilaudid 20 g per mL the infusion rate at 9 ml per hour , patient had no motor deficit epidural site okay , vital signs stable ,VAS 6/10 , Assessment and plan= post operative day #1 , patient complaining abdominal pain, for this reason we will increase the epidural infusion to 10 ML per hour ,
[2018-11-27] MEDS: HEPARIN SODIUM,PORCINE 5,000 UNIT/ML 1 ML VIAL SQ SCH ×4 (00:41→23:14)
[2018-11-27] MEDS: SODIUM CHLORIDE 0.9% 1,000 ML IV SCH ×3 (00:46→22:10)
[2018-11-27] MEDS: ROPIVACAINE 250 MG, HYDROMORPHONE (PF) 5 MG in SODIUM CHLORIDE 0.9% 200 ML EPIDURAL PRN ×2 (01:47→22:37)
[2018-11-27 07:19] LABS: HCT 38.1 % (39.0-53.0); HGB 12.8 gm/dL (13.0-17.5); MCH 29.4 pg (25.0-35.0); MCHC 33.5 g/dL (31.0-37.0); MCV 87.7 fL (80.0-100.0); Mean Platelet Volume 6.8; Platelet Count 242 k/uL (150-450); RBC 4.34 m/uL (4.30-5.90); RDW 12.8 % (11.5-15.5); WBC 11.8 k/uL (3.8-10.6)
[2018-11-27 07:26] LABS: African American GFR (CKD) >90 (>60 ml/min/1.73 sqM); Anion Gap 10 mmol/L; Blood Urea Nitrogen 9 mg/dL (9-20); Calcium 8.5 mg/dL (8.4-10.2); Carbon Dioxide 22 mmol/L (22-30); Chloride 106 mmol/L (98-107); Glucose 74 mg/dL (74-99); Sodium 138 mmol/L (137-145)
[2018-11-27] MEDS: PANTOPRAZOLE 40 MG/10 ML VIAL IVP SCH (08:02)
[2018-11-27] MEDS: ALVIMOPAN 12 MG CAPSULE PO SCH ×2 (09:46→20:00)
[2018-11-27] MEDS: METOCLOPRAMIDE 5 MG/ML 2 ML VIAL IVP SCH ×4 (09:47→23:14)
[2018-11-27] MEDS: PIPERACILLIN-TAZOBACTAM 3.375 GM in SODIUM CHLORIDE 0.9% 100 ML IVPB SCH ×3 (10:05→23:14)
[2018-11-27 10:43] VITALS: BMI 31.4
--- NOTE | 2018-11-27 13:58 | P.PN ---
Subjective Progress Note Date: 11/27/18 CHIEF COMPLAINT: Recurrent small bowel obstruction HISTORY OF PRESENT ILLNESS: The patient is a 28-year-old male status post ileocolectomy for recurrent small bowel obstruction, 11/25/2018. POD 2. Family is at bedside. He reports moderate irritation from his NG tube. He did not ambulate yesterday. He denies any further lower abdominal pain prior to surgery. ROS: No reports of nausea and vomiting. No bowel movements. No fevers or chills. No new chest pain. No productive sputum PHYSICAL EXAM: VITAL SIGNS: Reviewed CONSTITUTIONAL: Well developed and in no acute distress. EYES: Conjuctivae without sclera icterus. Extraocular movements grossly intact. HEAD, EARS, NOSE, THROAT: Dry buccal mucosa. Head is atraumatic, normocephalic. Hears conversational speech. NG removed at bedside. NECK: Supple. No thyroidomegaly. RESPIRATORY: Non-labored respirations and equal bilateral excursions. CARDIOVASCULAR: Palpable 2+ radial pulses. ABDOMEN: Incisions clean dry and intact. PREVENA vac intact. MUSCULOSKELETAL: No gross deformity of the lower extremities noted. No clubbing. No cyanosis. SKIN: Good skin turgor. Well perfused. NEUROLOGIC: Cranial nerves I through XII grossly intact. No focal or lateralizing signs. PSYCH: Appropriate affect. Alert and oriented to person, place and time. CLINCAL LABS: White blood cell count normal elevated 15,000 now improved to under 13,000 ASSESSMENT: 1. Small bowel volvulus, congenital 2. Recurrent small bowel obstruction PLAN: 1. NG removed at bedside 2. Ambulation advised. 3. Entereg started to prevent post-op ileus. 4. Continue ice chips and popsicles. 5. Will hold TPN for now as GI function will likely resume. 6. Remove epidural no later than Wednesday per hospital protocol Objective - Vital Signs Vital signs: Vital Signs Temp 98.9 F 11/27/18 07:42 Pulse 96 11/27/18 07:42 Resp 16 11/27/18 07:42 BP 129/73 11/27/18 07:42 Pulse Ox 98 11/27/18 07:42 Intake & Output 11/26/18 11/27/18 11/27/18 18:59 06:59 18:59 Intake Total 2558.667 1096.066 800 Output Total 222 619 3222 Balance 1708.667 121.066 -1475 Weight 111.13 kg Intake: IV 2000 700 Sodium Chloride 0.9% 1, 700 000 ml @ 100 mls/hr IV . Q10H [facility] Rx#:[id number] Sodium Chloride 0.9% 2, 2000 000 ml @ 999 mls/hr IV . Q2H1M [facility] Rx#:[id number] Intake, IV Titration 082.881 4304.066 100 Amount Lactated Ringers 1,000 ml 500 @ 0 mls/hr IV .[facility] Rx#:[id number] Piperacillin-Tazobactam 3 100 .375 gm In Sodium Chloride 0.9% 100 ml @ 25 mls/hr IVPB Q8HR [facility] Rx# :[id number] Ropivacaine 250 mg 58.667 96.066 Hydromorphone (Pf) 5 mg In Sodium Chloride 0.9% 200 ml @ Per Protocol EPIDURAL .Q0M PRN Rx#: [id number] Sodium Chloride 0.9% 1, 1000 000 ml @ 100 mls/hr IV . Q10H [facility] Rx#:[id number] Output: Gastric Drainage 50 600 225 Urine [phone] Other: Voiding Method Indwelling Catheter Indwelling Catheter Indwelling Catheter - Labs CBC & Chem 7: 11/27/18 06:25 11/27/18 06:25 Labs: Abnormal Lab Results - Last 24 Hours (Table) 11/27/18 Range/Units 06:25 WBC 11.8 H (3.8-10.6) k/uL Hgb 12.8 L (13.0-17.5) gm/dL Hct 38.1 L (39.0-53.0) % Assessment and Plan (1) Small bowel volvulus Current Visit: Yes Status: Acute Code(s): K56.2 - VOLVULUS SNOMED Code(s): 674923552 (2) SBO (small bowel obstruction) Current Visit: No Status: Acute Code(s): K56.609 - UNSP INTESTNL OBST, UNSP TO PARTIAL VERSUS COMPLETE OBST SNOMED Code(s): 304694009
--- NOTE | 2018-11-27 21:03 | P.PN ---
Progress Note - Text Progress Note Date: 11/27/18 Postoperative day #2 status post expected laparotomy , iliocolectomy/epidural catheter placed for postoperative analgesia, patient doing well epidural site okay, patient currently on combination of epidural infusion solution of Ropivacaine 0.0625% and Dilaudid 20 g per mL the infusion rate at 10 ml per hour , patient had no motor deficit epidural site okay , vital signs stable ,VAS 4/10, he had episode of breakthrough pain , Assessment and plan= post operative day #2 , patient reported that most of the time the pain is controlled but he had a few episodes of breakthrough abdominal pain, for this reason we will continue epidural infusion at 10 ML per hour , I encouraged the patient to ask the nurse for breakthrough IV pain medication/Dilaudid 0.5 mg every 2 hours when necessary
[2018-11-27] MEDS: HYDROmorphone 0.5 MG/0.5 ML SYRINGE IVP PRN (21:56)
[2018-11-28] MEDS: METOCLOPRAMIDE 5 MG/ML 2 ML VIAL IVP SCH ×4 (04:50→23:02)
[2018-11-28] MEDS: SODIUM CHLORIDE 0.9% 1,000 ML IV SCH ×2 (04:50→19:34)
[2018-11-28] MEDS: PANTOPRAZOLE 40 MG/10 ML VIAL IVP SCH (07:15)
[2018-11-28] MEDS: PIPERACILLIN-TAZOBACTAM 3.375 GM in SODIUM CHLORIDE 0.9% 100 ML IVPB SCH ×3 (07:15→23:02)
[2018-11-28] MEDS: ALVIMOPAN 12 MG CAPSULE PO SCH (07:17)
[2018-11-28] MEDS: HEPARIN SODIUM,PORCINE 5,000 UNIT/ML 1 ML VIAL SQ SCH ×3 (07:17→23:02)
[2018-11-28 08:23] LABS: Basophils % (A) 0 %; Eosinophils # (A) 0.1 k/uL (0-0.7); Eosinophils % (A) 1 %; HGB 13.7 gm/dL (13.0-17.5); Lymphocytes # (A) 1.3 k/uL (1.0-4.8); Lymphocytes % (A) 12 %; MCH 28.4 pg (25.0-35.0); MCHC 32.6 g/dL (31.0-37.0); MCV 87.2 fL (80.0-100.0); Mean Platelet Volume 6.6; Monocytes # (A) 0.6 k/uL (0-1.0); Monocytes % (A) 5 %; Neutrophils # (A) 9.3 k/uL (1.3-7.7); Neutrophils % (A) 81 %; Platelet Count 241 k/uL (150-450); RBC 4.82 m/uL (4.30-5.90); RDW 12.6 % (11.5-15.5); WBC 11.5 k/uL (3.8-10.6)
[2018-11-28 08:33] LABS: African American GFR (CKD) >90 (>60 ml/min/1.73 sqM); Anion Gap 11 mmol/L; Blood Urea Nitrogen 7 mg/dL (9-20); Calcium 8.5 mg/dL (8.4-10.2); Carbon Dioxide 21 mmol/L (22-30); Chloride 106 mmol/L (98-107); Glucose 89 mg/dL (74-99); Potassium 4.2 mmol/L (3.5-5.1); Sodium 138 mmol/L (137-145)
[2018-11-28] MEDS: HYDROmorphone 0.5 MG/0.5 ML SYRINGE IVP PRN ×5 (08:59→23:01)
[2018-11-28] MEDS: ONDANSETRON 4 MG/2 ML VIAL IVP PRN (08:59)
--- NOTE | 2018-11-28 11:15 | P.PN ---
<Latha Reyes Kiara - Last Filed: 11/28/18 11:08> Subjective Progress Note Date: 11/28/18 CHIEF COMPLAINT: Abdominal pain HISTORY OF PRESENT ILLNESS: Patient is status post ileocolectomy for recurrent small bowel obstruction. Patient seen and examined this morning at the bedside. Patient states his pain is tolerable this morning. Epidural infusing. Mild [place] sea. Reports belching. Denies flatus or BM. Tolerating ice chips and popsicles. WBC 11.5. Hemoglobin 13.7. PHYSICAL EXAM: VITAL SIGNS: Reviewed GENERAL: Well-developed in no acute distress. HEENT: No sclera icterus. Extraocular movements grossly intact. Moist buccal mucosa. Head is atraumatic, normocephalic. Hears conversational speech. No nasal drainage. NECK: Supple without lymphadenopathy. CHEST: Non-labored respirations and equal bilateral excursions. CARDIOVASCULAR: Regular rate with regular rhythm. Palpable 2+ radial pulses. ABDOMEN: Soft. Nondistended. Appropriate surgical tenderness. MUSCULOSKELETAL: No clubbing, cyanosis or edema. NEUROLOGIC: No focal or lateralizing signs. Cranial nerves II through XII grossly intact. PSYCH: Appropriate affect. Alert and oriented to person, place and time. SKIN: Well perfused. Good skin turgor. ASSESSMENT: 1. Abdominal pain, status post ileocolectomy 2. 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 Gastroesophageal reflux disease 4. Family history of Crohn's disease PLAN: 1. Continue ice chips and popsicles 2. Await bowel function before advancing diet 3. No TPN at this time 4. DC epidural and persaud 5. Patient encouraged to be OOB and ambulatory today Nurse practitioner note has been reviewed by physician. Signing provider agrees with the documented findings, assessment, and plan of care. Objective - Vital Signs Vital signs: Vital Signs Temp 97.9 F 11/28/18 07:22 Pulse 96 11/28/18 08:00 Resp 17 11/28/18 08:00 BP 121/81 11/28/18 07:22 Pulse Ox 97 11/28/18 07:22 Intake & Output 11/27/18 11/28/18 11/28/18 18:59 06:59 18:59 Intake Total 800 1208.333 Output Total 2275 300 1000 Balance -1475 908.333 -1000 Weight 111.13 kg Intake: IV 700 Sodium Chloride 0.9% 1, 700 000 ml @ 100 mls/hr IV . Q10H [facility] Rx#:[id number] Intake, IV Titration 100 1208.333 Amount Piperacillin-Tazobactam 3 100 100 .375 gm In Sodium Chloride 0.9% 100 ml @ 25 mls/hr IVPB Q8HR [facility] Rx# :[id number] Ropivacaine 250 mg 208.333 Hydromorphone (Pf) 5 mg In Sodium Chloride 0.9% 200 ml @ Per Protocol EPIDURAL .Q0M PRN Rx#: [id number] Sodium Chloride 0.9% 1, 900 000 ml @ 100 mls/hr IV . Q10H [facility] Rx#:[id number] Output: Gastric Drainage 225 Urine 2050 300 1000 Other: Voiding Method Indwelling Catheter Indwelling Catheter Indwelling Catheter - Labs CBC & Chem 7: 11/28/18 07:47 11/28/18 07:47 Labs: Abnormal Lab Results - Last 24 Hours (Table) 11/28/18 11/28/18 Range/Units 07:47 07:47 WBC 11.5 H (3.8-10.6) k/uL Neutrophils # 9.3 H (1.3-7.7) k/uL Carbon Dioxide 21 L (22-30) mmol/L BUN 7 L (9-20) mg/dL Assessment and Plan (1) Abdominal pain Current Visit: Yes Status: Acute Code(s): R10.9 - UNSPECIFIED ABDOMINAL PAIN SNOMED Code(s): 41646861 (2) Gastroesophageal reflux disease Current Visit: No Status: Acute Code(s): K21.9 - GASTRO-ESOPHAGEAL REFLUX DISEASE WITHOUT ESOPHAGITIS SNOMED Code(s): 954487249 (3) SBO (small bowel obstruction) Current Visit: No Status: Acute Code(s): K56.609 - UNSP INTESTNL OBST, UNSP TO PARTIAL VERSUS COMPLETE OBST SNOMED Code(s): 871923694 <Shobha Lara - Last Filed: 11/28/18 18:10> Subjective This afternoon, he had a bowel movement. He is passing small amount of flatus. Use of incentive spirometry advised. Adjustment of stool softeners. Advance diet. Objective - Vital Signs Vital signs: Vital Signs Temp 98.4 F 11/28/18 15:16 Pulse 68 11/28/18 16:00 Resp 15 11/28/18 16:00 BP 144/82 11/28/18 15:16 Pulse Ox 96 11/28/18 15:16 Intake & Output 11/27/18 11/28/18 11/28/18 18:59 06:59 18:59 Intake Total 800 1208.333 Output Total 2275 300 1650 Balance -1475 908.333 -1650 Weight 111.13 kg Intake: IV 700 Sodium Chloride 0.9% 1, 700 000 ml @ 100 mls/hr IV . Q10H [facility] Rx#:[id number] Intake, IV Titration 100 1208.333 Amount Piperacillin-Tazobactam 3 100 100 .375 gm In Sodium Chloride 0.9% 100 ml @ 25 mls/hr IVPB Q8HR [facility] Rx# :[id number] Ropivacaine 250 mg 208.333 Hydromorphone (Pf) 5 mg In Sodium Chloride 0.9% 200 ml @ Per Protocol EPIDURAL .Q0M PRN Rx#: [id number] Sodium Chloride 0.9% 1, 900 000 ml @ 100 mls/hr IV . Q10H [facility] Rx#:[id number] Output: Gastric Drainage 225 Urine 2050 300 1650 Uretheral (Persaud) 300 Other: Voiding Method Indwelling Catheter Indwelling Catheter Toilet # Voids 1 # Bowel Movements 1 - Labs CBC & Chem 7: 11/28/18 07:47 11/28/18 07:47 Labs: Abnormal Lab Results - Last 24 Hours (Table) 11/28/18 11/28/18 Range/Units 07:47 07:47 WBC 11.5 H (3.8-10.6) k/uL Neutrophils # 9.3 H (1.3-7.7) k/uL Carbon Dioxide 21 L (22-30) mmol/L BUN 7 L (9-20) mg/dL Assessment and Plan (1) Small bowel volvulus Current Visit: Yes Status: Acute Code(s): K56.2 - VOLVULUS SNOMED Code(s): 065483037 (2) SBO (small bowel obstruction) Current Visit: No Status: Acute Code(s): K56.609 - UNSP INTESTNL OBST, UNSP TO PARTIAL VERSUS COMPLETE OBST SNOMED Code(s): 732957026
[2018-11-28] MEDS ORDERED: MAGNESIUM HYDROXIDE 2,400 MG/10 ML CUP PO ONE (18:00)
[2018-11-28] MEDS: DOCUSATE 100 MG CAP PO SCH (20:24)
[2018-11-28] MEDS: MELATONIN 5 MG TABLET PO PRN (23:02)
[2018-11-29] MEDS: SODIUM CHLORIDE 0.9% 1,000 ML IV SCH ×3 (04:37→22:17)
[2018-11-29] MEDS: HYDROmorphone 0.5 MG/0.5 ML SYRINGE IVP PRN (05:45)
[2018-11-29] MEDS: METOCLOPRAMIDE 5 MG/ML 2 ML VIAL IVP SCH ×4 (05:47→23:27)
[2018-11-29 07:38] LABS: Basophils % (A) 0 %; Eosinophils # (A) 0.1 k/uL (0-0.7); Eosinophils % (A) 2 %; HCT 38.7 % (39.0-53.0); HGB 13.2 gm/dL (13.0-17.5); Lymphocytes # (A) 1.1 k/uL (1.0-4.8); Lymphocytes % (A) 21 %; MCH 29.5 pg (25.0-35.0); MCHC 34.3 g/dL (31.0-37.0); MCV 86.2 fL (80.0-100.0); Mean Platelet Volume 6.7; Monocytes # (A) 0.4 k/uL (0-1.0); Monocytes % (A) 8 %; Neutrophils # (A) 3.7 k/uL (1.3-7.7); Neutrophils % (A) 68 %; Platelet Count 250 k/uL (150-450); RBC 4.49 m/uL (4.30-5.90); RDW 12.7 % (11.5-15.5); WBC 5.4 k/uL (3.8-10.6)
[2018-11-29 07:43] LABS: African American GFR (CKD) >90 (>60 ml/min/1.73 sqM); Anion Gap 9 mmol/L; Blood Urea Nitrogen 8 mg/dL (9-20); Calcium 8.4 mg/dL (8.4-10.2); Carbon Dioxide 23 mmol/L (22-30); Chloride 106 mmol/L (98-107); Glucose 110 mg/dL (74-99); Potassium 3.8 mmol/L (3.5-5.1); Sodium 138 mmol/L (137-145)
[2018-11-29] MEDS: HEPARIN SODIUM,PORCINE 5,000 UNIT/ML 1 ML VIAL SQ SCH ×3 (09:19→23:26)
[2018-11-29] MEDS: DOCUSATE 100 MG CAP PO SCH ×2 (09:19→22:17)
[2018-11-29] MEDS: PANTOPRAZOLE 40 MG/10 ML VIAL IVP SCH (09:19)
[2018-11-29] MEDS: PIPERACILLIN-TAZOBACTAM 3.375 GM in SODIUM CHLORIDE 0.9% 100 ML IVPB SCH ×3 (09:20→23:27)
--- NOTE | 2018-11-29 12:44 | P.PN ---
<Latha Reyes Kiara - Last Filed: 11/29/18 12:40> Subjective Progress Note Date: 11/29/18 CHIEF COMPLAINT: Abdominal pain HISTORY OF PRESENT ILLNESS: Patient is status post ileocolectomy for recurrent small bowel obstruction. Patient seen and examined this morning at the bedside. Patient states his pain is tolerable this morning. Reports abdominal cramping that is different from his pre-op abdominal pain. Reports passing flatus. Small BM yesterday. Tolerating diet. Denies nausea. Patient reports walking in the hallway yesterday. WBC 5.4. Hemoglobin 13.2 PHYSICAL EXAM: VITAL SIGNS: Reviewed GENERAL: Well-developed in no acute distress. HEENT: No sclera icterus. Extraocular movements grossly intact. Moist buccal mucosa. Head is atraumatic, normocephalic. Hears conversational speech. No nasal drainage. NECK: Supple without lymphadenopathy. CHEST: Non-labored respirations and equal bilateral excursions. CARDIOVASCULAR: Regular rate with regular rhythm. Palpable 2+ radial pulses. ABDOMEN: Soft. Nondistended. Appropriate surgical tenderness. MUSCULOSKELETAL: No clubbing, cyanosis or edema. NEUROLOGIC: No focal or lateralizing signs. Cranial nerves II through XII grossly intact. PSYCH: Appropriate affect. Alert and oriented to person, place and time. SKIN: Well perfused. Good skin turgor. ASSESSMENT: 1. Abdominal pain, status post ileocolectomy 2. 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 Gastroesophageal reflux disease 4. Family history of Crohn's disease PLAN: 1. Continue current diet 2. Optifoam dressing ordered. Will DC PREVENA today. 3. Incentive spirometry 4. Continue stool softeners 5. Reinforced importance of being OOB and ambulatory with patient. He is to be in the chair for all meals and ambulating in the halls daily. Nurse practitioner note has been reviewed by physician. Signing provider agrees with the documented findings, assessment, and plan of care. Objective - Vital Signs Vital signs: Vital Signs Temp 98.4 F 11/29/18 07:50 Pulse 94 11/29/18 08:00 Resp 15 11/29/18 08:00 BP 126/81 11/29/18 07:50 Pulse Ox 96 11/29/18 07:50 Intake & Output 11/28/18 11/29/18 11/29/18 18:59 06:59 18:59 Intake Total 100 350 180 Output Total 1650 550 Balance -1550 -200 180 Intake: Intake, IV Titration 350 Amount Sodium Chloride 0.9% 1, 350 000 ml @ 100 mls/hr IV . Q10H [facility] Rx#:[id number] Oral 100 180 Output: Urine 1650 550 Uretheral ([place]) 300 Other: Voiding Method Toilet Toilet Toilet Urinal Urinal # Voids 1 1 # Bowel Movements 1 - Labs CBC & Chem 7: 11/29/18 07:11 11/29/18 07:11 Labs: Abnormal Lab Results - Last 24 Hours (Table) 11/29/18 11/29/18 Range/Units 07:11 07:11 Hct 38.7 L (39.0-53.0) % BUN 8 L (9-20) mg/dL Glucose 110 H (74-99) mg/dL Assessment and Plan (1) Abdominal pain Current Visit: Yes Status: Acute Code(s): R10.9 - UNSPECIFIED ABDOMINAL PAIN SNOMED Code(s): 54047745 (2) Gastroesophageal reflux disease Current Visit: No Status: Acute Code(s): K21.9 - GASTRO-ESOPHAGEAL REFLUX DISEASE WITHOUT ESOPHAGITIS SNOMED Code(s): 407904267 (3) SBO (small bowel obstruction) Current Visit: No Status: Acute Code(s): K56.609 - UNSP INTESTNL OBST, UNSP TO PARTIAL VERSUS COMPLETE OBST SNOMED Code(s): 066582804 <Shobha Lara N - Last Filed: 11/29/18 20:31> Subjective As above. Diet advanced from full liquid diet. Anticipated disposition pending tolerating diet. Objective - Vital Signs Vital signs: Vital Signs Temp 97.3 F L 11/29/18 19:07 Pulse 89 11/29/18 19:07 Resp 15 11/29/18 19:07 BP 136/94 11/29/18 19:07 Pulse Ox 99 11/29/18 19:07 Intake & Output 11/29/18 11/29/18 11/30/18 06:59 18:59 06:59 Intake Total 350 520 Output Total 550 Balance -200 520 Intake: Intake, IV Titration 350 100 Amount Piperacillin-Tazobactam 3 100 .375 gm In Sodium Chloride 0.9% 100 ml @ 25 mls/hr IVPB Q8HR [facility] Rx# :[id number] Sodium Chloride 0.9% 1, 350 000 ml @ 100 mls/hr IV . Q10H [facility] Rx#:[id number] Oral 420 Output: Urine 550 Other: Voiding Method Toilet Toilet Urinal Urinal # Voids 1 - Labs CBC & Chem 7: 11/29/18 07:11 11/29/18 07:11 Labs: Abnormal Lab Results - Last 24 Hours (Table) 11/29/18 11/29/18 Range/Units 07:11 07:11 Hct 38.7 L (39.0-53.0) % BUN 8 L (9-20) mg/dL Glucose 110 H (74-99) mg/dL Assessment and Plan (1) Small bowel volvulus Current Visit: Yes Status: Acute Code(s): K56.2 - VOLVULUS SNOMED Code(s): 787738331 (2) SBO (small bowel obstruction) Current Visit: No Status: Acute Code(s): K56.609 - UNSP INTESTNL OBST, UNSP TO PARTIAL VERSUS COMPLETE OBST SNOMED Code(s): 386715985
[2018-11-29] MEDS: KETOROLAC 30 MG/ML 1 ML VIAL IVP SCH ×3 (13:20→23:27)
[2018-11-29] MEDS: MELATONIN 5 MG TABLET PO PRN (23:27)
[2018-11-30 00:49] VITALS: RESP 16
[2018-11-30] MEDS: KETOROLAC 30 MG/ML 1 ML VIAL IVP SCH ×2 (07:21→12:00)
[2018-11-30] MEDS: METOCLOPRAMIDE 5 MG/ML 2 ML VIAL IVP SCH (07:21)
[2018-11-30] MEDS ORDERED: MAGNESIUM HYDROXIDE 2,400 MG/10 ML CUP PO ONE (08:00)
[2018-11-30] MEDS: PANTOPRAZOLE 40 MG/10 ML VIAL IVP SCH (08:18)
[2018-11-30] MEDS: PIPERACILLIN-TAZOBACTAM 3.375 GM in SODIUM CHLORIDE 0.9% 100 ML IVPB SCH (08:19)
[2018-11-30] MEDS: DOCUSATE 100 MG CAP PO SCH (08:19)
[2018-11-30] MEDS: SODIUM CHLORIDE 0.9% 1,000 ML IV SCH (08:19)
[2018-11-30] MEDS: HEPARIN SODIUM,PORCINE 5,000 UNIT/ML 1 ML VIAL SQ SCH (08:19)
[2018-11-30 08:41] VITALS: BP 122/77; PULSE 86; TEMP 98.9
--- NOTE | 2018-11-30 12:55 | P.DS ---
Providers Date of admission: 11/23/18 19:08 Expected date of discharge: 11/30/18 Attending physician: Shobha Lara Primary care physician: Shahid Grullon - Discharge Diagnosis(es) (1) Abdominal pain Current Visit: Yes Status: Acute (2) Gastroesophageal reflux disease Current Visit: No Status: Acute (3) SBO (small bowel obstruction) Current Visit: No Status: Acute Hospital Course: The patient is a 28-year-old male recently hospitalized 1 week ago for small bowel obstruction. CT of the abdomen and pelvis including small bowel follow- through confirmed possible obstruction at the ileocecal valve along his previous admission. Conservative measures were used and he was able to pass flatus and tolerate diet hence his discharge. He reports doing well at home for at least the last 2-3 days where he started to develop recurrent lower abdominal pain and inability to pass flatus including abdominal distention. This is his third bowel obstruction in less than 3 months. He had recent diagnostic laparoscopy demonstrating no adhesive band disease. Despite conservative measures he now presents with recurrent bowel obstruction hence his admission. No reports of fevers or chills. He does report nausea. He does report moderate abdominal pain bilateral lower abdomen and right greater than left. Patient underwent ileocolectomy for recurrent small bowel obstruction with Dr. Lara on 11/25/2018. Patient is doing well postoperatively without any immediate complications. He is tolerating low fiber diet. Passing flatus and having BMs. Pain is controlled on oral medications. Vital signs have been stable. He is stable for discharge home today. Please see EMR for further hospital course details. Discharge Diagnosis: 1. Abdominal pain, status post ileocolectomy 2. 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 Gastroesophageal reflux disease 4. Family history of Crohn's disease Nurse practitioner note has been reviewed by physician. Signing provider agrees with the documented findings, assessment, and plan of care. Patient Condition at Discharge: Stable Plan - Discharge Summary Discharge Rx Participant: Yes New Discharge Prescriptions: Continue Metoclopramide [Reglan] 10 mg PO ACHS PRN PRN Reason: Nausea Acetaminophen [Tylenol] 650 mg PO Q4H PRN PRN Reason: Pain Ibuprofen [Motrin Ib] 200 - 400 mg PO Q6H PRN PRN Reason: Pain Discharge Medication List Acetaminophen [Tylenol] 650 mg PO Q4H PRN 11/23/18 [History] Ibuprofen [Motrin Ib] 200 - 400 mg PO Q6H PRN 11/23/18 [History] Metoclopramide [Reglan] 10 mg PO ACHS PRN 11/23/18 [History] Follow up Appointment(s)/Referral(s): Mitchel Key MD [Primary Care Provider] - 12/02/18 9:10 am Shobha Lara MD [STAFF PHYSICIAN] - 12/07/18 4:00 pm Patient Instructions/Handouts: Bowel Resection (DC), Colectomy (DC) Activity/Diet/Wound Care/Special Instructions: No lifting over 4 pounds in 4 weeks until December 27. August shower. No bathtub soaks. Diet as tolerated. Remove dressing December 04. Discharge Disposition: HOME SELF-CARE
== END 2018-11-30 13:39 | disposition home or self-care (01) | DRG 330 ==
LOC: EC 15:44 → 4SSUR 19:08
PROVIDERS: ADMIT Surgery Plastic and Reconstructive Surgery; ATTEND Surgery Plastic and Reconstructive Surgery
PROC: 0DBB0ZZ Excision of Ileum, Open Approach (ICD-10-PCS; 2018-11-25)
PROC: 0DTJ0ZZ Resection of Appendix, Open Approach (ICD-10-PCS; 2018-11-25)
PROC: 0DBK0ZZ Excision of Ascending Colon, Open Approach (ICD-10-PCS; principal; 2018-11-25 07:30)
DX: K56.2 Volvulus (principal); Q43.3 Congenital malformations of intestinal fixation; Q43.8 Other specified congenital malformations of intestine; K56.7 Ileus, unspecified; Z83.79 Family history of other diseases of the digestive system; K21.9 Gastro-esophageal reflux disease without esophagitis; J45.909 Unspecified asthma, uncomplicated; Z88.5 Allergy status to narcotic agent; K38.9 Disease of appendix, unspecified
CPT/HCPCS: 36415; 74177; 80048; 80053; 85025; 85027; 86850; 86900; 86901; 88307; 96361; 96374; 99285

== ENCOUNTER 2019-01-19 18:10 | Emergency (ER) | payer OTHER ==
[2019-01-19 18:15] VITALS: TEMP 98.3
[2019-01-19] MEDS ORDERED: SODIUM CHLORIDE 0.9% 1,000 ML IV STA (19:20)
--- NOTE | 2019-01-19 19:25 | ED ---
General Adult HPI - General Chief complaint: Dizziness Stated complaint: Weakness, trouble sleeping Time Seen by Provider: 01/19/19 18:59 Source: patient Mode of arrival: ambulatory Limitations: no limitations - History of Present Illness Initial comments: 28-year-old male patient with a benign past medical history presents to the emergency department today for evaluation of lightheaded, dizziness, and near- syncope. Patient states he has been feeling unwell throughout the day. States he was at [employer] when he became very dizzy and almost passed out. Patient states he has been feeling out of it. Patient states that he has chronic insomnia and sleeps 2-3 hours per day. Patient believes this may be catching up to him and causing her to feel ill. States he has tried melatonin [id number] sleep aids without much relief. Denies any current headache, blurred vision, or double vision. Denies any chest pain, states he does have s ome mild shortness of breath. Patient denies any recent rash, abdominal pain, nausea, vomiting, diarrhea, constipation, back pain, numbness, tingling, dizziness, weakness, hematuria, dysuria, urinary urgency, urinary frequency, or any other complaints. - Related Data Home Medications Medication Instructions Recorded Confirmed Acetaminophen [Tylenol] 650 mg PO Q4H PRN 11/23/18 11/23/18 Ibuprofen [Motrin Ib] 200 - 400 mg PO Q6H PRN 11/23/18 11/23/18 Metoclopramide [Reglan] 10 mg PO ACHS PRN 11/23/18 11/23/18 Allergies Allergy/AdvReac Type Severity Reaction Status Date / Time tramadol AdvReac Nausea Verified 01/19/19 18:15 Review of Systems ROS Statement: Those systems with pertinent positive or pertinent negative responses have been documented in the HPI. ROS Other: All systems not noted in ROS Statement are negative. Past Medical History Past Medical History: Asthma, GERD/Reflux Additional Past Medical History / Comment(s): OCCASIONAL ABDOMINAL PAIN, HAVING FREQUENT HEADACHES AND INSOMNIA, SBO History of Any Multi-Drug Resistant Organisms: None Reported Past Surgical History: No Surgical Hx Reported Additional Past Surgical History / Comment(s): SURGERY FOR "TWISTED INTESTINE", exploratory lap Past Anesthesia/Blood Transfusion Reactions: No Reported Reaction Past Psychological History: No Psychological Hx Reported Smoking Status: Never smoker Past Alcohol Use History: Rare Past Drug Use History: None Reported - Past Family History Mother Family Medical History: No Reported History General Exam Limitations: no limitations General appearance: alert, in no apparent distress, other (This a well- developed, well-nourished adult male patient in no acute distress. Vital signs upon presentation are temperature 98.3F, pulse 100, respirations 20, blood pressure 139/83, pulse ox 98% on room air.) Eye exam: Present: normal appearance, PERRL, EOMI. Absent: scleral icterus, conjunctival injection, nystagmus, periorbital swelling ENT exam: Present: normal exam, normal oropharynx, mucous membranes moist Respiratory exam: Present: normal lung sounds bilaterally. Absent: respiratory distress, wheezes, rales, rhonchi, stridor Cardiovascular Exam: Present: regular rate, normal rhythm, normal heart sounds. Absent: systolic murmur, diastolic murmur, rubs, gallop, clicks GI/Abdominal exam: Present: soft, normal bowel sounds. Absent: distended, tenderness, guarding, rebound, rigid Neurological exam: Present: alert, oriented X3, CN II-XII intact Psychiatric exam: Present: normal affect, normal mood Skin exam: Present: warm, dry, intact, normal color. Absent: rash Course Vital Signs 01/19/19 18:11 Temperature 98.3 F Pulse Rate 100 Respiratory 20 Rate Blood Pressure 139/83 O2 Sat by Pulse 98 Oximetry EKG Findings - EKG Comments: EKG Findings:: EKG obtained at 1934 shows normal sinus rhythm with a ventricular rate of 80, CO interval 188, QRS duration 80, QT 358, QTC 412. No evidence of ST elevation or depression. Medical Decision Making - Medical Decision Making 28-year-old male patient presented to the emergency department today for evaluation of dizziness and near-syncope. Physical examination is unremarkable. He is neurologically intact with no focal deficits. Labs reviewed and are unremarkable. EKG showed normal sinus rhythm. Patient does report difficulty sleeping, states he hasn't slept over the last 2 days. Did discuss this is a p ossible cause for his symptoms. He is instructed to follow-up with his primary care physician to discuss sleeping medications. Instructed to return to the emergency department for any new, worsening, or concerning symptoms. He verbalizes understanding and agrees with this plan. - Lab Data Result diagrams: 01/19/19 19:41 01/19/19 19:41 Lab Results 01/19/19 01/19/19 Range/Units 19:41 19:41 WBC 7.0 (3.8-10.6) k/uL RBC 4.89 (4.30-5.90) m/uL Hgb 14.1 (13.0-17.5) gm/dL Hct 43.5 (39.0-53.0) % MCV 88.9 (80.0-100.0) fL MCH 28.9 (25.0-35.0) pg MCHC 32.5 (31.0-37.0) g/dL RDW 13.0 (11.5-15.5) % Plt Count 234 (150-450) k/uL Neutrophils % 44 % Lymphocytes % 41 % Monocytes % 6 % Eosinophils % 5 % Basophils % 2 % Neutrophils # 3.1 (1.3-7.7) k/uL Lymphocytes # 2.9 (1.0-4.8) k/uL Monocytes # 0.4 (0-1.0) k/uL Eosinophils # 0.3 (0-0.7) k/uL Basophils # 0.1 (0-0.2) k/uL Sodium 141 (137-145) mmol/L Potassium 4.1 (3.5-5.1) mmol/L Chloride 105 (98-107) mmol/L Carbon Dioxide 26 (22-30) mmol/L Anion Gap 10 mmol/L BUN 10 (9-20) mg/dL Creatinine 1.01 (0.66-1.25) mg/dL Est GFR (CKD-EPI)AfAm >90 (>60 ml/min/1.73 sqM) Est GFR (CKD-EPI)NonAf >90 (>60 ml/min/1.73 sqM) Glucose 97 (74-99) mg/dL Calcium 10.0 (8.4-10.2) mg/dL Total Bilirubin 1.2 (0.2-1.3) mg/dL AST 19 (17-59) U/L ALT 27 (21-72) U/L Alkaline Phosphatase 65 (38-126) U/L Total Protein 7.8 (6.3-8.2) g/dL Albumin 4.6 (3.5-5.0) g/dL Disposition Clinical Impression: Insomnia, Dizziness Disposition: HOME SELF-CARE Condition: Good Instructions (If sedation given, give patient instructions): Dizziness (ED), Insomnia (ED) Additional Instructions: Follow-up with your primary care physician to discuss alternate medications for help sleeping. Rest. Increase fluids. Follow up with your primary care physician for recheck in 1-2 days. Return to the emergency department immediately for any new, worsening, or concerning symptoms. Is patient prescribed a controlled substance at d/c from ED?: No Referrals: Mitchel Key MD [Primary Care Provider] - 1-2 days Time of Disposition: 21:22
[2019-01-19 19:57] LABS: Basophils # (A) 0.1 k/uL (0-0.2); Basophils % (A) 2 %; Eosinophils # (A) 0.3 k/uL (0-0.7); Eosinophils % (A) 5 %; HCT 43.5 % (39.0-53.0); HGB 14.1 gm/dL (13.0-17.5); Lymphocytes # (A) 2.9 k/uL (1.0-4.8); Lymphocytes % (A) 41 %; MCH 28.9 pg (25.0-35.0); MCHC 32.5 g/dL (31.0-37.0); MCV 88.9 fL (80.0-100.0); Mean Platelet Volume 6.6; Monocytes # (A) 0.4 k/uL (0-1.0); Monocytes % (A) 6 %; Neutrophils # (A) 3.1 k/uL (1.3-7.7); Neutrophils % (A) 44 %; Platelet Count 234 k/uL (150-450); RBC 4.89 m/uL (4.30-5.90)
[2019-01-19 20:07] LABS: ALT 27 U/L (21-72); AST 19 U/L (17-59); African American GFR (CKD) >90 (>60 ml/min/1.73 sqM); Albumin 4.6 g/dL (3.5-5.0); Alkaline Phosphatase 65 U/L (38-126); Anion Gap 10 mmol/L; Blood Urea Nitrogen 10 mg/dL (9-20); Carbon Dioxide 26 mmol/L (22-30); Chloride 105 mmol/L (98-107); Glucose 97 mg/dL (74-99); Potassium 4.1 mmol/L (3.5-5.1); Sodium 141 mmol/L (137-145); Total Bilirubin 1.2 mg/dL (0.2-1.3); Total Protein 7.8 g/dL (6.3-8.2)
[2019-01-19] MEDS ORDERED: diphenhydrAMINE 50 MG/ML 1 ML VIAL IVP STA (21:21)
[2019-01-19 21:38] VITALS: BP 127/84; PULSE 80; RESP 18
== END 2019-01-19 21:38 | disposition home or self-care (01) ==
LOC: EC 18:10
DX: G47.00 Insomnia, unspecified (principal); R42 Dizziness and giddiness; Z88.5 Allergy status to narcotic agent
CPT/HCPCS: 36415; 93005; 80053; 85025; 99284; 96374; 96361 ×2; J1200

== ENCOUNTER 2021-08-22 17:11 | Emergency (ER) | payer OTHER ==
[2021-08-22 17:33] VITALS: RESP 18; TEMP 98.2
--- NOTE | 2021-08-22 19:51 | ED ---
Eye Problem HPI - General Chief complaint: ENT Stated complaint: Eye Exam Time Seen by Provider: 08/22/21 19:35 Source: patient, RN notes reviewed Mode of arrival: ambulatory Limitations: no limitations - History of Present Illness Initial comments: This is a pleasant 30-year-old male who presents to the emergency department complaining of long-standing bilateral eye complaints. He states he occasionally gets some blurry and double vision. He states his been going on for 2 years. Patient had an eye exam today to get a set of eyeglasses. Patient was sent to the emergency department stating that the eye doctor sent him over because they saw some "swelling from behind the eye. " No headache, no fever or chills, no changes in vision or hearing, no sore throat or difficulty with speech, no neck pain, no chest pain or shortness of breath, no abdominal pain, no nausea or vomiting, no changes in urination or bowel movements, no numbness or tingling, no extremity pain, no skin rashes or lesions. Patient denies any other significant past medical history. No smoking, no alcohol or drug abuse. Patient also states his blood pressure has been elevated. - Related Data Home Medications Medication Instructions Recorded Confirmed No Known Home Medications 08/22/21 08/22/21 Allergies Allergy/AdvReac Type Severity Reaction Status Date / Time tramadol AdvReac Nausea Verified 08/22/21 21:45 Review of Systems ROS Statement: Those systems with pertinent positive or pertinent negative responses have been documented in the HPI. ROS Other: All systems not noted in ROS Statement are negative. Past Medical History Past Medical History: Asthma, GERD/Reflux Additional Past Medical History / Comment(s): OCCASIONAL ABDOMINAL PAIN, HAVING FREQUENT HEADACHES AND INSOMNIA, SBO History of Any Multi-Drug Resistant Organisms: None Reported Past Surgical History: No Surgical Hx Reported Additional Past Surgical History / Comment(s): SURGERY FOR "TWISTED INTESTINE", exploratory lap Past Anesthesia/Blood Transfusion Reactions: No Reported Reaction Past Psychological History: No Psychological Hx Reported Smoking Status: Never smoker Past Alcohol Use History: Rare Past Drug Use History: None Reported - Past Family History Mother Family Medical History: No Reported History General Exam Limitations: no limitations General appearance: alert, in no apparent distress Head exam: Present: atraumatic, normocephalic, normal inspection Eye exam: Present: normal appearance, PERRL, EOMI. Absent: scleral icterus, conjunctival injection, nystagmus, periorbital swelling, periorbital tenderness ENT exam: Present: normal exam, normal oropharynx, mucous membranes moist, TM's normal bilaterally, normal external ear exam Neck exam: Present: normal inspection. Absent: tenderness, meningismus, lymphadenopathy Respiratory exam: Present: normal lung sounds bilaterally. Absent: respiratory distress, wheezes, rales, rhonchi, stridor Cardiovascular Exam: Present: regular rate, normal rhythm, normal heart sounds. Absent: systolic murmur, diastolic murmur, rubs, gallop, clicks GI/Abdominal exam: Present: soft, normal bowel sounds. Absent: distended, tenderness, guarding, rebound, rigid Extremities exam: Present: normal inspection, full ROM, normal capillary refill. Absent: tenderness, pedal edema, joint swelling, calf tenderness Back exam: Present: normal inspection Neurological exam: Present: alert, oriented X3, CN II-XII intact Psychiatric exam: Present: normal affect, normal mood Skin exam: Present: warm, dry, intact, normal color. Absent: rash Course Vital Signs 08/22/21 17:31 Temperature 98.2 F Pulse Rate 69 Respiratory 18 Rate Blood Pressure 154/102 O2 Sat by Pulse 98 Oximetry - Reevaluation(s) Reevaluation #1: 08/22/21 22:55 Medical record is reviewed Symptoms are improved here in the emergency department Patient is informed of results and questions answered Patient in no distress - Consultations Consultation #1: Case was discussed with Dr. Mir who ended up calling back. He did contact his senior account executive and confirmed that this was optic disc edema bilaterally. She was also concerned about the patient's blood pressure which was elevated in the office.Suggested MRI and follow-up with neurology. He stated this can be done as an outpatient. He ordered the computed tomography scan by this point. Medical Decision Making - Medical Decision Making Attempt to contact the patient ophthalmologists made. Patient presented after an optometry evaluation. After discussion with the transformer builder from the office it was confirmed that the patient was found to have optic disc edema bilaterally. The senior account executive is also concerned about the patient's blood pressure. She was sent here for evaluation. Patient tells me he has had some visual disturbance to include blurred vision and occasional double vision for about 2 years. No current visual disturbance. No other symptomology. I discussed this case with Dr. Mir who suggested an outpatient MRI and referral to neurology as well as a recheck with him within a few weeks. Patient was told to return to the ER for any signs or symptoms worsen. Told to return immediately if any other problems arise. All questions answered. Treatment plan discussed. Patient in agreement Every effort has been made to ensure accuracy of this dictation. However, due to the limitations of electronic medical records and dictation devices, errors in charting still occur. The case was discussed in detail with ED attending physician. Presentation, findings, treatment plan discussed in detail. Supervising physician is Dr. Le - Lab Data Result diagrams: 08/22/21 21:40 08/22/21 21:40 Lab Results 08/22/21 08/22/21 Range/Units 21:40 21:40 WBC 8.6 (3.8-10.6) k/uL RBC 4.79 (4.30-5.90) m/uL Hgb 14.6 (13.0-17.5) gm/dL Hct 43.8 (39.0-53.0) % MCV 91.5 (80.0-100.0) fL MCH 30.5 (25.0-35.0) pg MCHC 33.4 (31.0-37.0) g/dL RDW 13.3 (11.5-15.5) % Plt Count 210 (150-450) k/uL MPV 7.4 Neutrophils % 56 % Lymphocytes % 35 % Monocytes % 6 % Eosinophils % 2 % Basophils % 0 % Neutrophils # 4.8 (1.3-7.7) k/uL Lymphocytes # 3.0 (1.0-4.8) k/uL Monocytes # 0.5 (0-1.0) k/uL Eosinophils # 0.2 (0-0.7) k/uL Basophils # 0.0 (0-0.2) k/uL Sodium 141 (137-145) mmol/L Potassium 4.3 (3.5-5.1) mmol/L Chloride 109 H (98-107) mmol/L Carbon Dioxide 24 (22-30) mmol/L Anion Gap 8 mmol/L BUN 8 L (9-20) mg/dL Creatinine 1.03 (0.66-1.25) mg/dL Est GFR (CKD-EPI)AfAm >90 (>60 ml/min/1.73 sqM) Est GFR (CKD-EPI)NonAf >90 (>60 ml/min/1.73 sqM) Glucose 86 (74-99) mg/dL Calcium 9.7 (8.4-10.2) mg/dL Total Bilirubin 1.8 H (0.2-1.3) mg/dL AST 23 (17-59) U/L ALT 16 (4-49) U/L Alkaline Phosphatase 63 (38-126) U/L Total Protein 7.7 (6.3-8.2) g/dL Albumin 4.7 (3.5-5.0) g/dL - EKG Data EKG Comments: EKG done at 2103 and read by the ED attending physician reveals sinus rhythm with a rate of 77, normal intervals, normal axis, no acute ST or T-wave changes. Normal QRS morphology. Disposition Clinical Impression: Visual disturbance, Papilledema of both eyes, Elevated blood pressure reading Narrative: Chronic visual disturbance2 years, no other new symptomology Disposition: HOME SELF-CARE Condition: Stable Instructions (If sedation given, give patient instructions): Hypertension (ED), Blurred Vision (ED) Additional Instructions: You will need an outpatient MRI--due to the hypertension and papilledema. Call your regular physician 8 AM Wednesday morning to schedule follow-up appointment. Also make a follow-up appointment with the neurologist and the transformer builder as discussed. Follow-up with your regular physician as directed. Return to the ER immediately if any symptoms worsen, new symptoms arise, or any other problems develop. Is patient prescribed a controlled substance at d/c from ED?: No Referrals: Adelina Pride MD [Primary Care Provider] - 08/25/21 8:00 am Mayelin Hernandez MD [REFERRING] - As Soon As Possible Jj Mir MD [STAFF PHYSICIAN] - 08/29/21 Time of Disposition: 22:57
[2021-08-22] MEDS ORDERED: SODIUM CHLORIDE 0.9% 1,000 ML IV ONE (20:12)
[2021-08-22 22:07] LABS: ALT 16 U/L (4-49); AST 23 U/L (17-59); African American GFR (CKD) >90 (>60 ml/min/1.73 sqM); Albumin 4.7 g/dL (3.5-5.0); Alkaline Phosphatase 63 U/L (38-126); Anion Gap 8 mmol/L; Blood Urea Nitrogen 8 mg/dL (9-20); Calcium 9.7 mg/dL (8.4-10.2); Carbon Dioxide 24 mmol/L (22-30); Chloride 109 mmol/L (98-107); Glucose 86 mg/dL (74-99); Non-African American GFR(CKD) >90 (>60 ml/min/1.73 sqM); Potassium 4.3 mmol/L (3.5-5.1); Sodium 141 mmol/L (137-145); Total Bilirubin 1.8 mg/dL (0.2-1.3); Total Protein 7.7 g/dL (6.3-8.2)
[2021-08-22 22:10] LABS: Basophils % (A) 0 %; Eosinophils # (A) 0.2 k/uL (0-0.7); Eosinophils % (A) 2 %; HCT 43.8 % (39.0-53.0); HGB 14.6 gm/dL (13.0-17.5); Lymphocytes % (A) 35 %; MCH 30.5 pg (25.0-35.0); MCHC 33.4 g/dL (31.0-37.0); MCV 91.5 fL (80.0-100.0); Mean Platelet Volume 7.4; Monocytes # (A) 0.5 k/uL (0-1.0); Monocytes % (A) 6 %; Neutrophils # (A) 4.8 k/uL (1.3-7.7); Neutrophils % (A) 56 %; Platelet Count 210 k/uL (150-450); RBC 4.79 m/uL (4.30-5.90); RDW 13.3 % (11.5-15.5); WBC 8.6 k/uL (3.8-10.6)
--- NOTE | 2021-08-22 22:31 | CT ---
EXAMINATION TYPE: CT angio head neck DATE OF EXAM: 08/22/2021 COMPARISON: None HISTORY: Papilledema. sent by eye doctor CT DLP: 1011.8 mGycm Automated exposure control for dose reduction was used. CONTRAST: Performed with IV Contrast, patient injected with 65 mL of Isovue 370. Images obtained from the aortic arch to the vertex of the brain with IV contrast. There are 3-D post processed images. FINDINGS: There is normal branching pattern of the great vessels on the aortic arch. There is arterial flow in the subclavian arteries. There is arterial flow in the common internal and external carotid arteries bilaterally. There is wide patency of the carotid artery bifurcations. There is arterial flow in both vertebral arteries. There is arterial flow in the anterior middle and posterior cerebral arteries. There is normal enhanc ement of the venous sinuses. There is arterial flow in the vertebrobasilar artery system. No evidence of carotid or vertebral artery aneurysm or dissection. There is no intracranial mass effect. No evidence of intracranial arterial stenosis. No evidence of intracranial aneurysm or neovascularity IMPRESSION: Negative CT angiogram of the neck. Negative CT angiogram of the brain.
[2021-08-22 23:56] VITALS: BP 141/74; PULSE 75
== END 2021-08-22 23:56 | disposition home or self-care (01) ==
LOC: EC 17:11
DX: H47.10 Unspecified papilledema (principal); H53.9 Unspecified visual disturbance; R03.0 Elevated blood-pressure reading, without diagnosis of hypertension
CPT/HCPCS: 36415; 80053; 85025; 70496; 70498; 99284; Q9967

== ENCOUNTER → 2022-01-17 | Outpatient (CLI) | payer OTHER ==
[2022-01-17 16:12] LABS: Appearance,Urine Clear (Clear); Bilirubin,Urine Negative (Negative); Blood,Urine Negative (Negative); Color,Urine Yellow (Yellow); Ketones,Urine Trace mg/dL (Negative); Nitrite,Urine Negative (Negative); PH, Urine 7.5 (5.0-8.0)
[2022-01-17 16:18] LABS: Bacteria,Urine None Seen /HPF (None Seen)
[2022-01-17 16:31] LABS: Basophils # (A) 0.03 X 10*3/uL (0.00-0.10); Basophils % (A) 0.4 %; Eosinophils # (A) 0.11 X 10*3/uL (0.04-0.35); Eosinophils % (A) 1.4 %; HCT 40.5 % (39.6-50.0); HGB 13.7 g/dL (13.0-17.0); Immature Grans, Automated 0.2 %; Lymphocytes # (A) 3.17 X 10*3/uL (0.90-5.00); Lymphocytes % (A) 39.3 %; MCH 30.2 pg (27.0-32.0); MCHC 33.8 g/dL (32.0-37.0); MCV 89.2 fL (80.0-97.0); Mean Platelet Volume 10.4 fL (9.5-12.2); Monocytes # (A) 0.65 X 10*3/uL (0.20-1.00); Monocytes % (A) 8.1 %; NRBC Per 100 WBC 0 /100 WBCS (0.0-0.0); Neutrophils # (A) 4.08 X 10*3/uL (1.80-7.70); Neutrophils % (A) 50.6 %; Platelet Count 230 X 10*3/uL (140-440); RBC 4.54 X 10*6/uL (4.40-5.60); RDW 12.9 % (11.5-14.5); WBC 8.06 X 10*3/uL (4.50-10.00)
[2022-01-17 17:39] LABS: ALT 11 U/L (10-49); AST 16 U/L (14-35); Albumin 4.7 g/dL (3.8-4.9); Albumin/Globulin Ratio 1.55 (1.60-3.17); Alkaline Phosphatase 65 U/L (41-126); BUN/Creat Ratio 8.45 Ratio (12.00-20.00); Blood Urea Nitrogen 9.4 mg/dL (9.0-27.0); Calcium 9.8 mg/dL (8.7-10.3); Carbon Dioxide 21.6 mmol/L (20.0-27.5); Chloride 104 mmol/L (96-109); Chol/HDL Ratio 3.67 Ratio; Glucose 87 mg/dL (70-110); LDL Cholesterol,Calculated 147.8 mg/dL (0.0-131.0); Potassium 4.1 mmol/L (3.5-5.5); Sodium 137 mmol/L (135-145); Total Protein 7.7 g/dL (6.2-8.2); VLDL Calculation 10.78 mg/dL (5.00-40.00)
== END | disposition home or self-care (01) ==
LOC: LABWHC1 11:43
PROVIDERS: ATTEND Internal Medicine
DX: I10 Essential (primary) hypertension (principal); F32.A Depression, unspecified; J45.20 Mild intermittent asthma, uncomplicated
CPT/HCPCS: 36415; 80053; 80061; 81001; 83036; 83735; 84439; 84443; 85025

== ENCOUNTER → 2022-01-17 | Outpatient (CLI) | payer OTHER ==
--- NOTE | 2022-01-19 08:49 | XR ---
Lumbar spine HISTORY: Low back pain 3 views the lumbar spine correlated to prior spine dated 30 May 2018 Rudimentary ribs present at L1. Lumbar vertebral bodies show preserved height. Minimal retrolisthesis grade 1 L5-S1. There is loss of disc height at L5-S1. Lumbarized appearance of S1. IMPRESSION: Degenerative disc disease is mild.
== END | disposition home or self-care (01) ==
LOC: RADXRMAIN 12:03
PROVIDERS: ATTEND Internal Medicine
DX: M51.36 Other intervertebral disc degeneration, lumbar region (principal)
CPT/HCPCS: 72100

== ENCOUNTER → 2023-03-09 | Outpatient (CLI) | payer OTHER ==
--- NOTE | 2023-03-10 12:39 | MR ---
EXAMINATION TYPE: MR lumbar spine wo con DATE OF EXAM: 03/09/2023 10:19 PM CLINICAL INDICATION:Male, 32 years old with history of M54.16; PHH, Low back pain that radiates down right leg COMPARISON: 01/17/2022 11/23/2018. TECHNIQUE: Multi planar, multi sequence imaging was performed utilizing: T1-weighted, T2-weighted, a nd turbo inversion recovery imaging of the lumbar spine. IV Contrast: cc . (None if empty) FINDINGS: Alignment: The lumbar vertebral bodies have preserved heights and alignment. Cord: The conus medullaris and the distal spinal cord appear unremarkable with regards to their signa l intensity and morphology. Bones/Discs: Minimal disc degeneration changes worse at L5-S1 with disc space narrowing, osteophytes. Multilevel disc desiccation is present. No abnormal bony edema on inversion recovery sequences. T12-L1: No evidence of significant spinal canal stenosis or neural foraminal stenosis. L1-L2: No evidence of significant spinal canal stenosis or neural foraminal stenosis. L2-L3: No evidence of significant spinal canal stenosis or neural foraminal stenosis. L3-L4: No evidence of significant spinal canal stenosis or neural foraminal stenosis. L4-L5: Disc bulge and facet joint arthropathy result in mild spinal canal and mild bilateral neural f oraminal stenosis. L5-S1: Eccentric right osteophyte which mildly impresses upon the exiting right nerve and closely suman roximates the forming nerve. Facet arthropathy also contributes to moderate bilateral neural foramina l stenosis. Other findings: None. IMPRESSION: 1. Eccentric osteophyte that abuts the exiting right nerve at L5-S1 and the forming nerve/exiting ne rve S1-S2. There is moderate bilateral neural foraminal stenosis at L5-S1. Correlate with symptoms fo r source of patient's radiculopathy. 2. No definitive evidence of significant spinal canal stenosis. 3. Multilevel disc degeneration with associated osteoarthritic changes.
== END | disposition home or self-care (01) ==
LOC: RADMRIMAIN 21:45
PROVIDERS: ATTEND Internal Medicine
DX: M47.26 Other spondylosis with radiculopathy, lumbar region (principal); M51.16 Intervertebral disc disorders with radiculopathy, lumbar region; M99.73 Connective tissue and disc stenosis of intervertebral foramina of lumbar region; M25.78 Osteophyte, vertebrae
CPT/HCPCS: 72148

== ENCOUNTER 2023-11-16 11:16 | Emergency (ER) | payer OTHER ==
[2023-11-16] MEDS ORDERED: LIDOCAINE 4% PATCH TOPICAL ONE (12:07)
[2023-11-16] MEDS ORDERED: DEXAMETHASONE SOD PHOSPHATE 10 MG/ML 1 ML VIAL ONE (12:07)
[2023-11-16] MEDS ORDERED: KETOROLAC 15 MG/ML 1 ML VIAL ONE ×2 (12:07→13:10)
[2023-11-16] MEDS ORDERED: HYDROmorphone 1 MG/ML 1 ML SYRINGE ONE (12:07)
[2023-11-16] MEDS ORDERED: ORPHENADRINE 30 MG/ML 2 ML VIAL ONE (12:15)
[2023-11-16] MEDS ORDERED: HYDROmorphone 0.5 MG/0.5 ML SYRINGE ONE (13:10)
[2023-11-16] MEDS ORDERED: ACET/COD 300 MG/30 MG STARTER PACK 6 TAB BTL PO ONE (14:08)
== END 2023-11-16 13:54 | disposition home or self-care (01) ==
LOC: EC 11:16
CPT/HCPCS: 99283

== ENCOUNTER → 2023-12-06 | Outpatient (CLI) | payer OTHER ==
--- NOTE | 2023-12-06 14:26 | P.PAINPG ---
Objective - Vital Signs Vital signs: Intake & Output 12/05/23 12/06/23 12/06/23 18:59 06:59 18:59 Weight 88.451 kg PQRS Measure Charge Sheet Comment: HISTORY OF PRESENT ILLNESS: A 33 yr old male w mother at side [facility] w severe and chronic LBP > 3 mo secondary to radiculopathy, spondylosis and facet arthropathy without myelopathy for evaluation. Pt states pain level is provoked at 6 /10 in intensity, constant, localized in the lower lumbar spine, predominantly axial, throbbing in character w occasional shooting pain towards the R hip. Pain is provoked by laying on stomach. Pain is alleviated by heat, medications (Flexeril, Tyl, Medrol dosepack), topical BioFreeze, repositioning and rest . PMH: OA, Asthma, GERD PSH: SBO, Abd Exploratory Laparoscopy, ESIs in 2010 SH: Never smoker, Rare ETOH use, Occ Cannabis use FH: Mo- No Reported History All: See list Meds: See list REVIEW OF ORGAN SYSTEMS: CONSTITUTIONAL: No fevers or chills. No recent weight loss. NEUROLOGICAL: + numbness and tingling along the distal extremities. No seizure disorders or headaches. MUSCULOSKELETAL: + pain PSYCHIATRIC: Denies current depression or suicidal thoughts. Physical Examinations : Constitutional : Cooperative , not in acute distress . Neurologic : Cranial nerve II to XII intact. No focal neurological deficits. Psychiatric : alert & oriented x 3. Matching mood & appropriate affect. Judgment & insight intact. Musculoskeletal : Cervical Spine Motor strength in the deltoid and biceps: Normal right side. Normal Left side Motor strength biceps and the wrist extensors: Normal right side . Normal left side Motor strength in the triceps muscle: Normal right side. Normal left side Deep tendon reflexes: Normal at the biceps. Normal at Brachioradialis. Normal at triceps Vertebral body tenderness to deep palpation over Cervical facet loading test: positive bilaterally Spurling test: positive bilaterally Neck distraction test: positive bilaterally Flora sign: positive bilaterally Lumbar spine Motor strength lower extremities ,thigh and legs 5/5 Right side , 5/5 Left side Deep tendon reflexes : Normal Knee Jerk. Normal Ankle Jerk Vertebral body tenderness over Romero Test positive R L5-S1 Lumbar facet Loading Test: positive Right / positive Left Range of motion of the lumbar spine Flexion 30 degrees, extension 10 degrees Straight Leg Raise test: Left/ Right positive at < 35 degrees Kalyani test: positive right / positive left. Severe tenderness over the Sacroiliac joint on the Right / Left sides Gaenslen test: positive bilaterally Seated flexion test: positive bilaterally. Sacral spine : Severe tenderness over the Sacroiliac joint: right side / left side Range of motion: Flexion of the lumbar spine <60 degrees Range of motion: Extension of the lumbar spine <20 degrees Gaenslen's Test positive Kalyani test: positive right side / left side Thigh Thrust Test Sacral Thrust Test Imaging: MRI non contrast of hte lumbar spine from 03/09/23 reviewed Assessment/ Plan : R L5-S1 radiculopathy Recommendation of PT x 6 wks M54.16 Would benefit from R TFESI L5-S1 if PT is unsuccessful in alleviating pain. All questions answered. I have spent greater than 30 minutes on patient care today. Dr Ernst was available by phone for the evaluation of this patient. The time was used to review the medical records including relevant urine studies and Prescription history (MAPs), review of the available imaging, evaluation and examination of the patient, coordination of care with the medical staff and if applicable referring physicians, as well as creation of the medical record PQRS Narrative: Smoking Status Never smoker Home Medications: Ambulatory Orders No Known Home Medications 08/22/21 Controlled Substance Measures - Controlled Substance Measures Is patient prescribed a controlled substance at discharge?: No
[2023-12-06 15:04] VITALS: BP 138/84; PULSE 90; RESP 16; TEMP 97.3
== END ==
LOC: PNWHC3 10:47
PROVIDERS: ATTEND Specialist
DX: M54.16 Radiculopathy, lumbar region
CPT/HCPCS: 99211

== ENCOUNTER → 2024-05-01 | Outpatient (CLI) | payer OTHER ==
--- NOTE | 2024-05-01 19:53 | MR ---
INDICATION: Patient age:Male; 33 years old; Reason for study: M54.16 RADICULOPATHY, LUMBAR REGION; [facility]. COMPARISONS: MRI lumbar spine 03/09/2023, lumbar spine radiograph 01/17/2022, CT abdomen and pelvis . TECHNIQUE: Multi planar, multi sequence imaging was performed utilizing: T1-weighted, T2-weighted, a nd turbo inversion recovery imaging of the lumbar spine. The patient was not given contrast. FINDINGS: Alignment: The lumbar vertebral bodies have preserved heights and alignment. Cord: The conus medullaris and the distal spinal cord appear unremarkable with regards to their signa l intensity and morphology. Bones/Discs: Mild disc desiccation at L4-L5 and L5-S1. No abnormal bony edema on inversion recovery s equences. T12-L1: No evidence of significant spinal canal stenosis or neural foraminal stenosis. Bilateral fora rebekah Tarlov cysts. L1-L2: No evidence of significant spinal canal stenosis or neural foraminal stenosis. Bilateral derik inal Tarlov cysts. L2-L3: No evidence of significant spinal canal stenosis or neural foraminal stenosis. Bilateral derik inal Tarlov cysts. L3-L4: Minimal broad-based disc bulge is also noted in central canal or neural foraminal stenosis. Le ft foraminal Tarlov cyst. L4-L5: Broad-based disc bulge with mild effacement of the anterior thecal sac. Ligamentum flavum estrada ling and bilateral facet arthropathy demonstrated. There is close approximation of the exiting left n erve root. Mild bilateral neural foraminal stenosis. Left foraminal Tarlov cyst. L5-S1: Similar right subarticular zone disc protrusion superimposed upon a broad-based disc bulge res ulting in effacement of the exiting right L5-S1 nerve and deforming nerve/exiting nerve S1-S2. Bilate ral facet arthropathy with moderate right and mild to moderate left neural foraminal stenosis. Other findings: None. IMPRESSION: 1. Similar L5-S1 right subarticular zone disc protrusion superimposed upon a broad-based disc bulge with effacement of the exiting right nerve at L5-S1 and the forming nerve/exiting nerve S1-S2. 2. Multilevel disc degeneration of the lower lumbar spine. [facility], , 05/01/2024 7:51 PM
== END | disposition home or self-care (01) ==
LOC: RADMRIMAIN 18:25
PROVIDERS: ATTEND Internal Medicine
DX: M48.07 Spinal stenosis, lumbosacral region (principal); M51.17 Intervertebral disc disorders with radiculopathy, lumbosacral region; M47.27 Other spondylosis with radiculopathy, lumbosacral region
CPT/HCPCS: 72148

== ENCOUNTER 2024-05-16 11:01 | Emergency (ER) | payer OTHER ==
[2024-05-16 11:14] VITALS: TEMP 98.6
[2024-05-16] MEDS: HYDROmorphone 0.5 MG/0.5 ML SYRINGE IVP STA (12:36)
[2024-05-16] MEDS: KETOROLAC 15 MG/ML 1 ML VIAL IVP STA (12:37)
[2024-05-16] MEDS: methylPREDNISolone SOD SUCCI 125 MG/2 ML VIAL IV STA (12:38)
[2024-05-16] MEDS: ORPHENADRINE 30 MG/ML 2 ML VIAL IVP STA (12:38)
--- NOTE | 2024-05-16 13:11 | ED ---
Back Pain HPI - General Chief Complaint: Back Pain/Injury Stated Complaint: Back and leg pain Time Seen by Provider: 05/16/24 11:12 Source: patient, family, RN notes reviewed Limitations: no limitations - History of Present Illness Initial Comments: 33-year-old male presents emergency department with chief complaint of pain. Patient states that he was leaving his pain management set up appointment when he fell like his back just caught and he states he had acute exacerbation. He denies any bowel, bladder and cons retention states he has a known herniated disc on MRI he states that they gave him Valium [place] and methocarbamol but states that this pain was different. Patient denies any abdominal complaints. Patient denies any other associated symptoms. - Related Data Home Medications Medication Instructions Recorded Confirmed methocarbamoL 750 mg PO TID 05/16/24 05/16/24 Previous Rx's Medication Instructions Recorded HYDROcodone/APAP 7.5-325MG [[place] 1 tab PO Q4H PRN 3 Days #18 tab 05/16/24 7.5-325] diazePAM [Valium] 5 mg PO DAILY 1 Days #2 tab 05/16/24 predniSONE 50 mg PO DAILY #5 tab 05/16/24 Allergies Allergy/AdvReac Type Severity Reaction Status Date / Time tramadol AdvReac Nausea Verified 05/16/24 11:14 Review of Systems ROS Statement: Those systems with pertinent positive or pertinent negative responses have been documented in the HPI. ROS Other: All systems not noted in ROS Statement are negative. Past Medical History Past Medical History: Asthma, GERD/Reflux Additional Past Medical History / Comment(s): OCCASIONAL ABDOMINAL PAIN, HAVING FREQUENT HEADACHES AND INSOMNIA, SBO History of Any Multi-Drug Resistant Organisms: None Reported Past Surgical History: No Surgical Hx Reported Additional Past Surgical History / Comment(s): SURGERY FOR "TWISTED INTESTINE", exploratory lap Past Anesthesia/Blood Transfusion Reactions: No Reported Reaction Past Psychological History: No Psychological Hx Reported Smoking Status: Never smoker Past Alcohol Use History: Rare Past Drug Use History: Marijuana - Past Family History Mother Family Medical History: No Reported History General Exam Limitations: no limitations General appearance: alert, in no apparent distress Head exam: Present: atraumatic, normocephalic, normal inspection Eye exam: Present: normal appearance, PERRL, EOMI. Absent: scleral icterus, conjunctival injection, periorbital swelling ENT exam: Present: normal exam, normal oropharynx, mucous membranes moist Neck exam: Present: normal inspection, full ROM. Absent: tenderness, meningismus, lymphadenopathy Respiratory exam: Present: normal lung sounds bilaterally. Absent: respiratory distress, wheezes, rales, rhonchi, stridor Cardiovascular Exam: Present: regular rate, normal rhythm, normal heart sounds. Absent: systolic murmur, diastolic murmur, rubs, gallop, clicks GI/Abdominal exam: Present: soft, normal bowel sounds. Absent: distended, tenderness, guarding, rebound, rigid Extremities exam: Present: normal inspection, full ROM, normal capillary refill, other (Neurovascular intact lower extremities). Absent: tenderness, pedal edema, joint swelling, calf tenderness Back exam: Present: tenderness, muscle spasm, paraspinal tenderness. Absent: full ROM, vertebral tenderness Neurological exam: Present: alert, oriented X3, CN II-XII intact, reflexes normal. Absent: motor sensory deficit Course Vital Signs 05/16/24 11:07 Temperature 98.6 F Pulse Rate 90 Respiratory 17 Rate Blood Pressure 140/87 O2 Sat by Pulse 100 Oximetry Medical Decision Making - Medical Decision Making Was pt. sent in by a medical professional or institution (, PA, FIRE PROTECTION FABRICATOR, urgent care, hospital, or retirement...) When possible be specific @ -No Did you speak to anyone other than the patient for history (EMS, parent, family, police, friend...)? What history was obtained from this source @ -No Did you review nursing and triage notes (agree or disagree)? Why? @ -I reviewed and agree with nursing and triage notes Were old charts reviewed (outside hosp., previous admission, EMS record, old EKG, old radiological studies, urgent care reports/EKG's, retirement records)? Report findings @ -No old charts were reviewed Differential Diagnosis (chest pain, altered mental status, abdominal pain women, abdominal pain men, vaginal bleeding, weakness, fever, dyspnea, syncope, headache, dizziness, GI bleed, back pain, seizure, CVA, palpatations, mental health, musculoskeletal)? @ -Differential Back Pain: Strain, zoster, cauda equina syndrome, epidural abscess, vertebral osteomyelitis, discitis, fracture, subluxation, disc herniation, DJD, spinal stenosis, dissection, AAA, pancreatitis, peptic ulcer disease, pyelonephritis, kidney stone, this is not meant to be an all-inclusive list. EKG interpreted by me (3pts min.). @ -As above X-rays interpreted by me (1pt min.). @ -None done CT interpreted by me (1pt min.). @ -None done U/S interpreted by me (1pt. min.). @ -None done What testing was considered but not performed or refused? (CT, X-rays, U/S, labs)? Why? @ -None What meds were considered but not given or refused? Why? @ -None Did you discuss the management of the patient with other professionals (professionals i.e. Dr., PA, FIRE PROTECTION FABRICATOR, lab, RT, psych nurse, social security benefits interviewer, oyster worker, teacher, hearing officer, skilled nursing case manager)? Give summary @ -No Was smoking cessation discussed for >3mins.? @ -No Was critical care preformed (if so, how long)? @ -No Were there social determinants of health that impacted care today? How? (Homelessness, low income, unemployed, alcoholism, drug addiction, transportation, low edu. Level, literacy, decrease access to med. care, care home, rehab)? @ -No Was there de-escalation of care discussed even if they declined (Discuss DNR or withdrawal of care, Hospice)? DNR status @ -No What co-morbidities impacted this encounter? (DM, HTN, Smoking, COPD, CAD, Cancer, CVA, ARF, Chemo, Hep., AIDS, mental health diagnosis, sleep apnea, morbid obesity)? @ -None Was patient admitted / discharged? Hospital course, mention meds given and route, prescriptions, significant lab abnormalities, going to OR and other pertinent info. @ -disCharge patient has known herniated disc patient does not have any current red flag symptoms patient does have some radicular symptoms down his right leg in which this has been chronic. Patient's pain is under control feels comfortable discharge Undiagnosed new problem with uncertain prognosis? @ -No Drug Therapy requiring intensive monitoring for toxicity (Heparin, Nitro, Insulin, Cardizem)? @ -No Were any procedures done? @ -No Diagnosis/symptom? @Lumbar back pain Acute, or Chronic, or Acute on Chronic? @ -Acute Uncomplicated (without systemic symptoms) or Complicated (systemic symptoms)? @ -Uncomplicated Side effects of treatment? @ -No Exacerbation, Progression, or Severe Exacerbation? @ -No Poses a threat to life or bodily function? How? (Chest pain, [place], [place], pneumonia, PE, COPD, DKA, ARF, appy, cholecystitis, CVA, Diverticulitis, Homicidal, Suicidal, threat to staff... and all critical care pts) @ -No Disposition Clinical Impression: Acute lumbar back pain Disposition: HOME SELF-CARE Condition: Stable Instructions (If sedation given, give patient instructions): Acute Low Back Pain (ED) Additional Instructions: Please return to the Emergency Department if symptoms worsen or any other concerns. Prescriptions: predniSONE 50 mg PO DAILY #5 tab Is patient prescribed a controlled substance at d/c from ED?: No Referrals: Adelina Pride MD [Primary Care Provider] - 1-2 days Time of Disposition: 13:10
[2024-05-16 13:29] VITALS: BP 141/72; PULSE 84; RESP 18
== END 2024-05-16 13:25 | disposition home or self-care (01) ==
LOC: EC 11:01
DX: M54.50 Low back pain, unspecified (principal); Z88.5 Allergy status to narcotic agent
CPT/HCPCS: 99283; 96374; 96375; J2360; J1885; J1171; J2919

== ENCOUNTER → 2024-05-16 | Outpatient (CLI) | payer OTHER ==
[2024-05-16 10:23] VITALS: BP 159/78; PULSE 96; RESP 16
--- NOTE | 2024-05-16 15:52 | P.PAINPG ---
Objective - Vital Signs Vital signs: Intake & Output 05/15/24 05/16/24 05/16/24 18:59 06:59 18:59 Weight 81.647 kg PQRS Measure Charge Sheet Comment: HISTORY OF PRESENT ILLNESS: A 33 yr old wheelchair bound male w mother at side presents today w severe and chronic LBP > 3 mo secondary to radiculopathy, spondylosis and facet arthropathy without myelopathy for evaluation. Pt states pain level is provoked at 6 /10 in intensity, constant, localized in the lower lumbar spine, predominantly axial, throbbing in character w occasional shooting pain towards the R hip. Pain is provoked by laying on stomach. Pain is alleviated by PT x 4 wks which ended in Jan 2024, physician guided stretches daily since Fall 2023, heat, medications, topical, use of a wheelchair for ambulatory assistance, repositioning and rest . Interventional procedures include Medications include [place], Robaxin, Tyl, Cannabis use REVIEW OF ORGAN SYSTEMS: CONSTITUTIONAL: No fevers or chills. No recent weight loss. NEUROLOGICAL: + numbness and tingling along the distal extremities. No seizure disorders or headaches. MUSCULOSKELETAL: + pain PSYCHIATRIC: Denies current depression or suicidal though ts. Physical Examinations : Constitutional : Cooperative , not in acute distress . Neurologic : Cranial nerve II to XII intact. No focal neurological deficits. Psychiatric : alert & oriented x 3. Matching mood & appropriate affect. Judgment & insight intact. Musculoskeletal : Cervical Spine Motor strength in the deltoid and biceps: Normal right side. Normal Left side Motor strength biceps and the wrist extensors: Normal right side . Normal left side Motor strength in the triceps muscle: Normal right side. Normal left side Deep tendon reflexes: Normal at the biceps. Normal at Brachioradialis. Normal at triceps Vertebral body tenderness to deep palpation over Cervical facet loading test: positive bilaterally Spurling test: positive bilaterally Neck distraction test: positive bilaterally Flora sign: positive bilaterally Lumbar spine Motor strength lower extremities ,thigh and legs 5/5 Right side , 5/5 Left side Deep tendon reflexes : Normal Knee Jerk. Normal Ankle Jerk Vertebral body tenderness over Romero Test positive R L5-S1 Lumbar facet Loading Test: positive Right / positive Left Range of motion of the lumbar spine Flexion 30 degrees, extension 10 degrees Straight Leg Raise test: Left/ Right positive at < 35 degrees Kalyani test: positive right / positive left. Severe tenderness over the Sacroiliac joint on the Right / Left sides Gaenslen test: positive bilaterally Seated flexion test: positive bilaterally. Sacral spine : Severe tenderness over the Sacroiliac joint: right side / left side Range of motion: Flexion of the lumbar spine <60 degrees Range of motion: Extension of the lumbar spine <20 degrees Gaenslen's Test positive Kalyani test: positive right side / left side Thigh Thrust Test Sacral Thrust Test Imaging: MRI non contrast of hte lumbar spine from 03/09/23 reviewed Assessment/ Plan : R L5-S1 radiculopathy Recommendation of R TFESI L5-S1 #1. Risks, benefits of procedure discussed and pt verbalized understanding. Short course of Blairs 7.5/325mg #18 NR Use, side effects, adverse reactions, safe storage discussed. Notified to refrain from ETOH and cannabis use while on Blairs. Acknowledged understanding. All questions answered. I have spent greater than 30 minutes on patient care today. Dr Ernst was available by phone for the evaluation of this patient. The time was used to review the medical records including relevant urine studies and Prescription history (MAPs), review of the available imaging, evaluation and examination of the patient, coordination of care with the medical staff and if applicable referring physicians, as well as creation of the medical record - Pain Location Bilateral Lower Back Non-Pharmacological Interventions: Exercise, Heat, Inactivity, Stretching Pharmacological Interventions: PRN Medication, Scheduled Medication PQRS Narrative: Smoking Status Never smoker Hx Alcohol Use (MH) No Home Medications: Ambulatory Orders HYDROcodone/APAP 7.5-325MG [[place] 7.5-325] 1 tab PO Q4H PRN 3 Days #18 tab 05/16/24 diazePAM [Valium] 5 mg PO DAILY 1 Days #2 tab 05/16/24 methocarbamoL 750 mg PO TID 05/16/24 Controlled Substance Measures - Controlled Substance Measures Is patient prescribed a controlled substance at discharge?: No
== END ==
LOC: PNWHC3 09:39
PROVIDERS: ATTEND Specialist
DX: M54.17 Radiculopathy, lumbosacral region (principal); Z88.5 Allergy status to narcotic agent
CPT/HCPCS: 99211

== ENCOUNTER → 2024-06-14 | Outpatient (CLI) | payer OTHER ==
[2024-06-14 10:35] VITALS: BP 111/74; PULSE 106; RESP 16; TEMP 97.1
--- NOTE | 2024-06-14 15:40 | P.PAINPG ---
PQRS Measure Charge Sheet Comment: HISTORY OF PRESENT ILLNESS: A 33 yr old wheelchair bound male w enmanuel at side presents today w severe and chronic LBP > 3 mo secondary to radiculopathy, spondylosis and facet arthropathy without myelopathy for evaluation s/p R TFESI L5-S1 #1. Pt states he experienced 0 % pain relief x 3 wks s/p procedure. Pt states pain level is provoked at 9 /10 in intensity, constant, localized in the R lumbar spine, predominantly axial, throbbing in character w occasional shooting pain towards the RLE. Pain is provoked by laying on stomach. Pain is alleviated by PT x 4 wks which ended in Jan 2024, physician guided stretches daily since Fall 2023, heat, medications, topical, use of a wheelchair for ambulatory assistance, repositioning and rest . Interventional procedures include R TFESI L5-S1 x1 (06/06) Medications include [place], Robaxin, Tyl, Cannabis use REVIEW OF ORGAN SYSTEMS: CONSTITUTIONAL: No fevers or chills. No recent weight loss. NEUROLOGICAL: + numbness and tingling along the distal extremities. No seizure disorders or headaches. MUSCULOSKELETAL: + pain PSYCHIATRIC: Denies current depression or suicidal thoughts. Physical Examinations : Constitutional : Cooperative , not in acute distress . Neurologic : Cranial nerve II to XII intact. No focal neurological deficits. Psychiatric : alert & oriented x 3. Matching mood & appropriate affect. Judgment & insight intact. Musculoskeletal : Cervical Spine Motor strength in the deltoid and biceps: Normal right side. Normal Left side Motor strength biceps and the wrist extensors: Normal right side . Normal left side Motor strength in the triceps muscle: Normal right side. Normal left side Deep tendon reflexes: Normal at the biceps. Normal at Brachioradialis. Normal at triceps Vertebral body tenderness to deep palpation over Cervical facet loading test: positive bilaterally Spurling test: positive bilaterally Neck distraction test: positive bilaterally Flora sign: positive bilaterally Lumbar spine Motor strength lower extremities ,thigh and legs 5/5 Right side , 5/5 Left side Deep tendon reflexes : Normal Knee Jerk. Normal Ankle Jerk Vertebral body tenderness over Romero Test positive R L5-S1 Lumbar facet Loading Test: positive Right L4-L5/ L5-S1 Range of motion of the lumbar spine Flexion 30 degrees, extension 10 degrees Straight Leg Raise test: Left/ Right positive at < 35 degrees Kalyani test: positive right / positive left. Severe tenderness over the Sacroiliac joint on the Right / Left sides Gaenslen test: positive bilaterally Seated flexion test: positive bilaterally. Sacral spine : Severe tenderness over the Sacroiliac joint: right side / left side Range of motion: Flexion of the lumbar spine <60 degrees Range of motion: Extension of the lumbar spine <20 degrees Gaenslen's Test positive Kalyani test: positive right side / left side Thigh Thrust Test Sacral Thrust Test Imaging: MRI non contrast of hte lumbar spine from 03/09/23 reviewed Assessment/ Plan : R L5-S1 radiculopathy Recommendation of R MBB L4-L5, L5-S1 #1. Risks, benefits of procedure discussed and pt verbalized understanding. Minimal anesthesia including Fentanyl and Versed if clinically indicated. Neurontin 100mg #60 w 1 RF. Use, side effects, adverse reactions, safe storage discussed. Acknowledged understanding. All questions answered. I have spent greater than 30 minutes on patient care today. Dr Ernst was available by phone for the evaluation of this patient. The time was used to review the medical records including relevant urine studies and Prescription history (MAPs), review of the available imaging, evaluation and examination of the patient, coordination of care with the medical staff and if applicable referring physicians, as well as creation of the medical record - Pain Location Right Lower Back Non-Pharmacological Interventions: Heat, Inactivity, Position/Reposition, Relaxa tion Technique Pharmacological Interventions: Epidural, PRN Medication, Topical Medication PQRS Narrative: Smoking Status Never smoker Hx Alcohol Use (MH) No Home Medications: Ambulatory Orders HYDROcodone/APAP 7.5-325MG [[place] 7.5-325] 1 tab PO Q4H PRN 3 Days #18 tab 05/16/24 diazePAM [Valium] 5 mg PO DAILY 1 Days #2 tab 05/16/24 methocarbamoL 750 mg PO TID 05/16/24 Aspirin [Adult Low Dose Aspirin EC] 81 mg PO DAILY 06/14/24 Atorvastatin [Lipitor] 40 mg PO DAILY 06/14/24 Gabapentin [Neurontin] 100 mg PO BID 30 Days #60 cap 06/14/24 Controlled Substance Measures - Controlled Substance Measures Is patient prescribed a controlled substance at discharge?: No
== END ==
LOC: PNWHC3 09:39
PROVIDERS: ATTEND Specialist
DX: M54.17 Radiculopathy, lumbosacral region (principal); Z88.5 Allergy status to narcotic agent
CPT/HCPCS: 99211

== ENCOUNTER 2024-06-23 06:23 | Day surgery (SDC) | payer OTHER ==
[2024-06-22 10:03] VITALS: BMI 23.1
[~2024-06-23 06:23] MED LIST changes: -DEXAMETHASONE SOD PHOSPHATE 10 MG/ML 1 ML VIAL IV ONE; -HEPARIN SODIUM,PORCINE 5,000 UNIT/ML 1 ML VIAL SQ ONE; +LACTATED RINGERS 1,000 ML IV SCH; -MIDAZOLAM 2 MG/2 ML VIAL IV PRN; -ONDANSETRON 4 MG/2 ML VIAL IVP ONE
[2024-06-23 07:06] VITALS: TEMP 97.2
[2024-06-23] MEDS: LACTATED RINGERS 1,000 ML IV ONE (07:11)
[2024-06-23] MEDS ORDERED: ROPIVACAINE 5MG/ML 20ML VIAL ONE (07:21)
[2024-06-23] MEDS ORDERED: fentaNYL (PF) 50 MCG/ML 2 ML AMP ONE (07:21)
[2024-06-23] MEDS ORDERED: MIDAZOLAM 2 MG/2 ML VIAL ONE (07:21)
[2024-06-23 07:44] VITALS: RESP 16
--- NOTE | 2024-06-23 07:48 | FL ---
EXAMINATION TYPE: FL guided pain mgmt statistic DATE OF EXAM: 06/23/2024 CLINICAL INDICATION: Male, 33 years old with history of FACET BLOCK LUM BACK PAIN; PHH, pain TECHNIQUE: Fluoroscopy. COMPARISON: None. FINDINGS: Fluoroscopic guidance was provided during pain relief procedure performed by Dr. Soto . A total of 30.5 seconds of fluoroscopic time was utilized during the procedure and the intraoperative images are acquired. Image acquired shows needle localization at several levels in the lower lumbar spine. Degeneration changes of the visualized joints. Total DAP: 0.68809 mGym2. IMPRESSION: As Above. [facility], , 06/23/2024 7:45 AM
--- NOTE | 2024-06-23 07:52 | P.PCN ---
Description of Procedure: Preprocedure diagnosis. 1. Lumbar spondylosis with facet joint arthropathy without myelopathy. 2. Lumbar degenerative disc disease. Postprocedure diagnosis. As above. Procedure done. Right diagnostic block with local anesthetics at L3, L4, L5 medial branch to target the facet joint L4- 5 and L5-S1 with fluoroscopic guidance (fluoroscopy images are available in the radiology department) . Anesthesia. Moderate sedation with intravenous Versed 2 mg and fentanyl 100 and local infiltration with local anesthetics. In OR, continuous pulse ox, EKG, blood pressure and verbal communication was maintained. Sedation [id number] end [id number] . Blood loss. Minimal. Indication. The patient has low back pain secondary to lumbar facet joint arthropathy. Discussed the procedure and alternative and complications which includes infection, bleeding, nerve damage, paralysis ,aggravation of pain. Patient understands and all questions were answered. Patient iunderstands that if any pain relief occurs it will last for a few hours to a few days maximum. Procedure description. After getting consent patient was taken in the OR in prone position. Back prepped with chlorhexidine and draped in sterile fashion. After injecting 5 mL of plain 1% lidocaine subcutaneously, a 22-gauge spinal needle was introduced under tunnel vision of the fluoroscope at the junction of the superior articular process with RIGHT ala of the sacrum. With slight oblique fluoroscope, after injecting 5 mL of plain 1% lidocaine subcutaneously, a 22-gauge spinal needle was introduced under tunnel vision of the fluoroscope at the junction of the superior articular process with RIGHT L5 transverse process, junction of the superior articular process with the RIGHT L4 transverse process. Negative CSF, negative blood, negative paresthesia. After needle position confirmation by AP and crosstable lateral view, after negative aspiration, half milliliters of solution were injected at each point. Total 1- 1/2 mL of solution was injected on the right side which consists of 0.5% ropivacaine . Spinal needles were taken out and bandages were applied. Disposition. Patient tolerated the procedure well. No complication. Discharged home in stable condition
[2024-06-23 07:57] VITALS: BP 132/68; PULSE 62
[2024-06-23] MEDS: IV FLUID CONTINUATION 1,000 ML IV ONE (08:01)
== END 2024-06-23 08:11 | disposition home or self-care (01) ==
LOC: ORPAIN 06:23
PROVIDERS: ATTEND Pain Medicine Interventional Pain Medicine
DX: M47.816 Spondylosis without myelopathy or radiculopathy, lumbar region (principal); M51.369 Other intervertebral disc degeneration, lumbar region without mention of lumbar back pain or lower extremity pain; Z88.6 Allergy status to analgesic agent; Z79.82 Long term (current) use of aspirin
CPT/HCPCS: 64493; 64494; 99152; J2250; J3010; J2795

== ENCOUNTER → 2024-07-10 | Outpatient (CLI) | payer OTHER ==
[2024-07-10 11:03] VITALS: BP 123/81; PULSE 84; RESP 16
--- NOTE | 2024-07-10 15:18 | P.PAINPG ---
PQRS Measure Charge Sheet Comment: HISTORY OF PRESENT ILLNESS: A 33 yr old male w mother at side presents today w severe and chronic LBP > 3 mo secondary to radiculopathy, spondylosis and facet arthropathy without myelopathy for evaluation s/p R MBB L4-L5, L5-S1 #1. Pt states he experienced 80 % pain relief x 1 day s/p procedure. Pt states pain level is provoked at 8 /10 in intensity, constant, localized in the R lumbar spine, predominantly axial, throbbing in character without shooting pain. Pain is provoked by laying on stomach. Pain is alleviated by PT x 4 wks which ended in Jan 2024, physician guided stretches daily since Fall 2023, heat, medications, topical, use of a wheelchair for ambulatory assistance, repositioning and rest . Interventional procedures include R TFESI L5-S1 x1 (06/06), R MBB L3-L5 x1 Medications include [place], Robaxin, Tyl, Cannabis use REVIEW OF ORGAN SYSTEMS: CONSTITUTIONAL: No fevers or chills. No recent weight loss. NEUROLOGICAL: + numbness and tingling along the distal extremities. No seizure disorders or headaches. MUSCULOSKELETAL: + pain PSYCHIATRIC: Denies current depression or suicidal thoughts. Physical Examinations : Constitutional : Cooperative , not in acute distress . Neurologic : Cranial nerve II to XII intact. No focal neurological deficits. Psychiatric : alert & oriented x 3. Matching mood & appropriate affect. Judgment & insight intact. Musculoskeletal : Cervical Spine Motor strength in the deltoid and biceps: Normal right side. Normal Left side Motor strength biceps and the wrist extensors: Normal right side . Normal left side Motor strength in the triceps muscle: Normal right side. Normal left side Deep tendon reflexes: Normal at the biceps. Normal at Brachioradialis. Normal at triceps Vertebral body tenderness to deep palpation over Cervical facet loading test: positive bilaterally Spurling test: positive bilaterally Neck distraction test: positive bilaterally Flora sign: positive bilaterally Lumbar spine Motor strength lower extremities ,thigh and legs 5/5 Right side , 5/5 Left side Deep tendon reflexes : Normal Knee Jerk. Normal Ankle Jerk Vertebral body tenderness over Romero Test positive R L5-S1 Lumbar facet Loading Test: positive Right L4-L5/ L5-S1 Range of motion of the lumbar spine Flexion 30 degrees, extension 10 degrees Straight Leg Raise test: Left/ Right positive at < 35 degrees Kalyani test: positive right / positive left. Severe tenderness over the Sacroiliac joint on the Right / Left sides Gaenslen test: positive bilaterally Seated flexion test: positive bilaterally. Sacral spine : Severe tenderness over the Sacroiliac joint: right side / left side Range of motion: Flexion of the lumbar spine <60 degrees Range of motion: Extension of the lumbar spine <20 degrees Gaenslen's Test positive Kalyani test: positive right side / left side Thigh Thrust Test Sacral Thrust Test Imaging: MRI non contrast of the lumbar spine from 03/09/23 reviewed Assessment/ Plan : R L5-S1 radiculopathy Recommendation of R MBB L4-L5, L5-S1 #2. Risks, benefits of procedure discussed and pt verbalized understanding. Minimal anesthesia including Fentanyl and Versed if clinically indicated. Neurontin 100mg #60 w 1 RF. Use, side effects, adverse reactions, safe storage discussed. Acknowledged understanding. All questions answered. I have spent greater than 30 minutes on patient care today. Dr Ernst was available by phone for the evaluation of this patient. The time was used to review the medical records including relevant urine studies and Prescription history (MAPs), review of the available imaging, evaluation and examination of the patient, coordination of care with the medical staff and if applicable referring physicians, as well as creation of the medical record PQRS Narrative: Smoking Status Never smoker Hx Alcohol Use (MH) No Home Medications: Ambulatory Orders Atorvastatin [Lipitor] 40 mg PO DAILY 06/14/24 Gabapentin [Neurontin] 100 mg PO BID 30 Days #60 cap 06/14/24 Controlled Substance Measures - Controlled Substance Measures Is patient prescribed a controlled substance at discharge?: No
== END ==
LOC: PNWHC3 08:56
PROVIDERS: ATTEND Specialist
DX: M47.816 Spondylosis without myelopathy or radiculopathy, lumbar region (principal); Z88.6 Allergy status to analgesic agent
CPT/HCPCS: 99211

== ENCOUNTER 2024-07-25 09:33 | Day surgery (SDC) | payer OTHER ==
[2024-07-24 10:28] VITALS: BMI 23.1
[2024-07-25 10:34] VITALS: TEMP 97.6
[2024-07-25] MEDS: LACTATED RINGERS 1,000 ML IV SCH (10:37)
[2024-07-25] MEDS: IV FLUID CONTINUATION 1,000 ML IV ONE ×2 (10:37→12:02)
[2024-07-25] MEDS ORDERED: MIDAZOLAM 2 MG/2 ML VIAL ONE (11:40)
[2024-07-25] MEDS ORDERED: ROPIVACAINE 5MG/ML 20ML VIAL ONE (11:40)
[2024-07-25] MEDS ORDERED: fentaNYL (PF) 50 MCG/ML 2 ML AMP ONE (11:40)
--- NOTE | 2024-07-25 12:07 | P.PCN ---
Description of Procedure: Preprocedure diagnosis. 1. Lumbar spondylosis with facet joint arthropathy without myelopathy. 2. Lumbar degenerative disc disease. Postprocedure diagnosis. As above. Procedure done. Right diagnostic block with local anesthetics at L3, L4, L5 medial branch to target the facet joint L4- 5 and L5-S1 with fluoroscopic guidance (fluoroscopy images are available in the radiology department) . Anesthesia. Moderate sedation with intravenous Versed 2 mg and fentanyl 100 and local infiltration with local anesthetics. In OR, continuous pulse ox, EKG, blood pressure and verbal communication was maintained. Sedation time-start 1140 end 1154 . Blood loss. Minimal. Indication. The patient has low back pain secondary to lumbar facet joint arthropathy. Discussed the procedure and alternative and complications which includes infection, bleeding, nerve damage, paralysis ,aggravation of pain. Patient understands and all questions were answered. Patient iunderstands that if any pain relief occurs it will last for a few hours to a few days maximum. Procedure description. After getting consent patient was taken in the OR in prone position. Back prepped with chlorhexidine and draped in sterile fashion. After injecting 5 mL of plain 1% lidocaine subcutaneously, a 22-gauge spinal needle was introduced under tunnel vision of the fluoroscope at the junction of the superior articular process with RIGHT ala of the sacrum. With slight oblique fluoroscope, after injecting 5 mL of plain 1% lidocaine subcutaneously, a 22-gauge spinal needle was introduced under tunnel vision of the fluoroscope at the junction of the superior articular process with RIGHT L5 transverse process, junction of the superior articular process with the RIGHT L4 transverse process. Negative CSF, negative blood, negative paresthesia. After needle position confirmation by AP and crosstable lateral view, after negative aspiration, half milliliters of solution were injected at each point. Total 1- 1/2 mL of solution was injected on the right side which consists of 0.5% ropivacaine. Spinal needles were taken out and bandages were applied. Disposition. Patient tolerated the procedure well. No complication. Discharged home in stable condition
--- NOTE | 2024-07-25 12:17 | FL ---
EXAMINATION TYPE: FL guided pain mgmt statistic DATE OF EXAM: 07/25/2024 FLUOROSCOPY DAP [id number] FL 23.6 Bilateral lumbar facet pain block with 3 images submitted. [facility], Workstation: [id number], 07/25/2024 12:15 PM
[2024-07-25 12:19] VITALS: BP 126/79; PULSE 78; RESP 18
== END 2024-07-25 12:37 | disposition home or self-care (01) ==
LOC: ORPAIN 09:33
PROVIDERS: ATTEND Pain Medicine Interventional Pain Medicine
DX: M47.816 Spondylosis without myelopathy or radiculopathy, lumbar region (principal); M51.369 Other intervertebral disc degeneration, lumbar region without mention of lumbar back pain or lower extremity pain; Z88.5 Allergy status to narcotic agent
CPT/HCPCS: 64493; 64494; J2250; J3010; J2795; 99152

== ENCOUNTER → 2024-08-21 | Outpatient (CLI) | payer OTHER ==
[2024-08-21 10:05] VITALS: BP 103/70; PULSE 88; RESP 17
--- NOTE | 2024-08-21 16:10 | P.PAINPG ---
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 Pt states he experienced 80 % pain relief x 4 hrs s/p procedure. Pt states pain level is provoked at 8 /10 in intensity, constant, localized in the R lumbar spine, predominantly axial, throbbing in character without shooting pain. Pain is provoked by laying on stomach. Pain is alleviated by PT x 4 wks which ended in Jan 2024, physician guided stretches daily since Fall 2023, heat, medications, topical, use of a wheelchair for ambulatory assistance, repositioning and rest . Interventional procedures include R TFESI L5-S1 x1 (06/06), R MBB L3-L5 x2 Medications include [place], Robaxin, Tyl, Cannabis use REVIEW OF ORGAN SYSTEMS: CONSTITUTIONAL: No fevers or chills. No recent weight loss. NEUROLOGICAL: + numbness and tingling along the distal extremities. No seizure disorders or headaches. MUSCULOSKELETAL: + pain PSYCHIATRIC: Denies current depression or suicidal thoughts. Physical Examinations : Constitutional : Cooperative , not in acute distress . Neurologic : Cranial nerve II to XII intact. No focal neurological deficits. Psychiatric : alert & oriented x 3. Matching mood & appropriate affect. Judgment & insight intact. Musculoskeletal : Cervical Spine Motor strength in the deltoid and biceps: Normal right side. Normal Left side Motor strength biceps and the wrist extensors: Normal right side . Normal left side Motor strength in the triceps muscle: Normal right side. Normal left side Deep tendon reflexes: Normal at the biceps. Normal at Brachioradialis. Normal at triceps Vertebral body tenderness to deep palpation over Cervical facet loading test: positive bilaterally Spurling test: positive bilaterally Neck distraction test: positive bilaterally Flora sign: positive bilaterally Lumbar spine Motor strength lower extremities ,thigh and legs 5/5 Right side , 5/5 Left side Deep tendon reflexes : Normal Knee Jerk. Normal Ankle Jerk Vertebral body tenderness over Romero Test positive R L5-S1 Lumbar facet Loading Test: positive Right L4-L5/ L5-S1 Range of motion of the lumbar spine Flexion 30 degrees, extension 10 degrees Straight Leg Raise test: Left/ Right positive at < 35 degrees Kalyani test: positive right / positive left. Severe tenderness over the Sacroiliac joint on the Right / Left sides Gaenslen test: positive bilaterally Seated flexion test: positive bilaterally. Sacral spine : Severe tenderness over the Sacroiliac joint: right side / left side Range of motion: Flexion of the lumbar spine <60 degrees Range of motion: Extension of the lumbar spine <20 degrees Gaenslen's Test positive Kalyani test: positive right side / left side Thigh Thrust Test Sacral Thrust Test Imaging: MRI non contrast of the lumbar spine from 03/09/23 reviewed Assessment/ Plan : R L5-S1 radiculopathy Recommendation of BL RFA L4-L5/ L5-S1. Risks, benefits of procedure discussed and pt verbalized understanding. Minimal anesthesia including Fentanyl and Ve rsed if clinically indicated. Ample supply of Neurontin 100mg #60 w 1 RF. Use, side effects, adverse reactions, safe storage discussed. Acknowledged understanding. All questions answered. I have spent greater than 30 minutes on patient care today. Dr Ernst was available by phone for the evaluation of this patient. The time was used to review the medical records including relevant urine studies and Prescription history (MAPs), review of the available imaging, evaluation and examination of the patient, coordination of care with the medical staff and if applicable referring physicians, as well as creation of the medical record - Pain Location Lower Back Non-Pharmacological Interventions: Heat, Massage, Sitting Pharmacological Interventions: Bolus/Change Medications, Medication PQRS Narrative: Smoking Status Never smoker Hx Alcohol Use (MH) No Home Medications: Ambulatory Orders Atorvastatin [Lipitor] 40 mg PO DAILY 06/14/24 Pregabalin [Lyrica] 75 mg PO HS 07/24/24 Controlled Substance Measures - Controlled Substance Measures Is patient prescribed a controlled substance at discharge?: No
== END ==
LOC: PNWHC3 09:36
PROVIDERS: ATTEND Specialist
DX: M47.27 Other spondylosis with radiculopathy, lumbosacral region (principal); F12.90 Cannabis use, unspecified, uncomplicated; Z88.5 Allergy status to narcotic agent
CPT/HCPCS: 99212